=== PATIENT | male | born 1955 | race Caucasian/White ===

== ENCOUNTER 2020-04-14 09:14 | Outpatient (CLI) | payer BC, SELFPAY ==
[2020-04-14 09:29] LABS: Basophils Absolute Auto 0.02 K/mm3 (0.00-0.10); Basophils Percent Auto 0.4 % (0.0-1.0); Eosinophils Absolute Auto 0.16 K/mm3 (0.02-0.50); Eosinophils Percent Auto 2.9 % (1.0-6.0); Hematocrit 40.7 % (40.0-54.0); Hemoglobin 13.7 g/dL (14.0-18.0); Immature Granulocyte Absolute 0.03 K/mm3 (0.00-0.00); Immature Granulocyte Percent A 0.6 % (0.0-0.0); Lymphocytes Absolute Auto 1.27 K/mm3 (1.10-4.50); Lymphocytes Percent Auto 23.3 % (18.0-42.0); Mean Corpuscular HGB Conc 33.7 g/dL (32.0-36.0); Mean Corpuscular Volume 95.1 fL (78.0-102.0); Mean Platelet Volume 9.7 fl (8.7-11.0); Monocytes Absolute Auto 0.57 K/mm3 (0.10-0.90); Monocytes Percent Auto 10.5 % (2.0-11.0); Neutrophils Absolute Auto 3.4 K/mm3 (1.7-7.2); Neutrophils Percent Auto 62.3 % (50.0-70.0); Platelet Count Result 187 K/mm3 (150-420); Red Blood Count 4.28 M/mm3 (4.70-6.10); Red Cell Distribution Width 12.8 % (11.6-14.4); White Blood Count 5.4 K/mm3 (4.8-10.8)
[2020-04-14 09:47] LABS: Add Urine Microscopic? YES; Appearance Urine Clear (Clear); Bilirubin Urine Negative (Negative); Blood Urine Negative (Negative); Color Urine Yellow (Yellow); Glucose Urine UA Negative (Negative); Ketones Urine Negative (Negative); Leukocyte Esterase Ur 1+ (Negative); Nitrate Urine Negative (Negative); Protein Urine Negative (Negative); Specific Grav Ur >= 1.030 (1.010-1.020); pH Urine 5.5 (5.0-8.0)
[2020-04-14 09:52] LABS: Bacteria Urine 1+ /hpf; RBC Urine 0-2 /hpf (0-2); Squamous Epithelial Cell Urine Few /hpf (Few)
[2020-04-14 10:24] LABS: Alanine Aminotransferase 26 U/L (16-63); Albumin Level 4.1 g/dL (3.4-5.0); Alkaline Phosphatase 37 U/L (46-116); Anion Gap 8 mmol/L (8-16); Aspartate Amino Transferase 25 U/L (15-37); Bilirubin,Total 0.5 mg/dL (0.00-1.00); Blood Urea Nitrogen 25 mg/dL (7-18); Calcium 8.6 mg/dL (8.5-10.1); Carbon Dioxide 28 mmol/L (21-32); Chloride 105 mmol/L (98-108); Cholesterol 213 mg/dL (0-200); Estimated Glomerular Filt Rate 57; Glucose 129 mg/dL (70-99); HDL Direct 40 mg/dL (40-60); LDL Cholesterol Calculated 150 mg/dL (<130); Osmolality Calculated 298 mOsm/kg (285-295); Potassium 4.2 mmol/L (3.5-5.1); Sodium 141 mmol/L (136-145); Thyroid Stimulating Hormone 0.34 uIU/mL (0.36-3.74); Total Protein 7.1 g/dL (6.4-8.2); Triglycerides 114 mg/dL (0-150)
[2020-04-14 10:28] LABS: Prostate Specific Antigen < 0.1 ng/mL (< OR = 4.0)
[2020-04-14 15:30] LABS: Hemoglobin A1C 6.3 % (<5.7)
== END 2020-04-14 09:15 | disposition home or self-care (01) ==
LOC: CHSLAB 09:16
PROVIDERS: PCP Internal Medicine; Visit Provider Internal Medicine
DX: E03.9 Hypothyroidism, unspecified (principal); E11.9 Type 2 diabetes mellitus without complications; I10 Essential (primary) hypertension; E78.5 Hyperlipidemia, unspecified; Z12.5 Encounter for screening for malignant neoplasm of prostate
CPT/HCPCS: 36415; 80053; 80061; 81001; 83036; 84153; 84443; 85025; G0103

== ENCOUNTER 2020-06-30 09:12 | Outpatient (CLI) | payer BC, SELFPAY ==
[2020-06-30 09:58] LABS: SARS-CoV-2 Ag Positive (Negative)
== END 2020-06-30 09:13 | disposition home or self-care (01) ==
LOC: CHSLAB 09:14
PROVIDERS: PCP Internal Medicine; Visit Provider Internal Medicine
DX: U07.1 COVID-19 (principal)
CPT/HCPCS: 87426

== ENCOUNTER 2020-12-09 07:53 | Outpatient (CLI) | payer BC, SELFPAY ==
[2020-12-09 08:16] LABS: Basophils Absolute Auto 0.05 K/mm3 (0.00-0.10); Basophils Percent Auto 0.9 % (0.0-1.0); Eosinophils Percent Auto 3.5 % (1.0-6.0); Hematocrit 41.7 % (37.0-46.0); Hemoglobin 13.9 g/dL (12.4-15.3); Immature Granulocyte Absolute 0.02 K/mm3 (0.00-0.00); Immature Granulocyte Percent A 0.4 % (0.0-0.0); Lymphocytes Absolute Auto 1.36 K/mm3 (1.10-4.50); Lymphocytes Percent Auto 23.9 % (18.0-42.0); Mean Corpuscular HGB Conc 33.3 g/dL (32.0-36.0); Mean Corpuscular Volume 92.9 fL (78.0-102.0); Mean Platelet Volume 9.6 fl (8.7-11.0); Monocytes Absolute Auto 0.64 K/mm3 (0.10-0.90); Monocytes Percent Auto 11.2 % (2.0-11.0); Neutrophils Absolute Auto 3.4 K/mm3 (1.7-7.2); Neutrophils Percent Auto 60.1 % (50.0-70.0); Platelet Count Result 172 K/mm3 (150-420); Red Blood Count 4.49 M/mm3 (4.70-6.10); Red Cell Distribution Width 13.2 % (11.6-14.4); White Blood Count 5.7 K/mm3 (4.8-10.8)
[2020-12-09 08:38] LABS: Hemoglobin A1C 6.4 % (<5.7)
[2020-12-09 09:34] LABS: Alanine Aminotransferase 30 U/L (16-63); Alkaline Phosphatase 46 U/L (46-116); Anion Gap 5 mmol/L (8-16); Aspartate Amino Transferase 23 U/L (15-37); Bilirubin,Total 0.5 mg/dL (0.00-1.00); Blood Urea Nitrogen 32 mg/dL (7-18); Calcium 9.1 mg/dL (8.5-10.1); Carbon Dioxide 29 mmol/L (21-32); Chloride 104 mmol/L (98-108); Cholesterol 214 mg/dL (0-200); Estimated Glomerular Filt Rate 55; Glucose 123 mg/dL (70-99); HDL Direct 38 mg/dL (40-60); LDL Cholesterol Calculated 156 mg/dL (<130); Osmolality Calculated 293 mOsm/kg (285-295); Potassium 4.1 mmol/L (3.5-5.1); Sodium 138 mmol/L (136-145); Thyroid Stimulating Hormone 2.56 uIU/mL (0.36-3.74); Total Protein 7.1 g/dL (6.4-8.2); Triglycerides 101 mg/dL (0-150)
== END 2020-12-09 07:54 | disposition home or self-care (01) ==
LOC: CHSLAB 07:57
PROVIDERS: PCP Internal Medicine; Visit Provider Internal Medicine
DX: E03.9 Hypothyroidism, unspecified (principal); E11.9 Type 2 diabetes mellitus without complications; I10 Essential (primary) hypertension; E78.5 Hyperlipidemia, unspecified
CPT/HCPCS: 36415; 80053; 80061; 83036; 84443; 85025

== ENCOUNTER 2021-04-20 11:23 | Outpatient (CLI) | payer BC, SELFPAY ==
[2021-04-20 12:36] LABS: SARS-CoV-2 Ag Negative (Negative)
== END 2021-04-20 11:24 | disposition home or self-care (01) ==
LOC: CHSLAB 11:26
PROVIDERS: PCP Internal Medicine; Visit Provider Internal Medicine
DX: Z20.822 Contact with and (suspected) exposure to COVID-19 (principal)
CPT/HCPCS: 87426; C9803

== ENCOUNTER 2021-04-22 11:13 | Outpatient (CLI) | payer BC, SELFPAY ==
[2021-04-22 11:33] LABS: Add Urine Microscopic? YES; Appearance Urine Sl Cloudy (Clear); Basophils Absolute Auto 0.01 K/mm3 (0.00-0.10); Basophils Percent Auto 0.1 % (0.0-1.0); Bilirubin Urine Negative (Negative); Blood Urine 1+ (Negative); Color Urine Light Yellow (Yellow); Eosinophils Absolute Auto 0.08 K/mm3 (0.02-0.50); Eosinophils Percent Auto 0.8 % (1.0-6.0); Glucose Urine UA 3+ (Negative); Hematocrit 46.4 % (37.0-46.0); Hemoglobin 15.3 g/dL (12.4-15.3); Immature Granulocyte Absolute 0.04 K/mm3 (0.00-0.00); Immature Granulocyte Percent A 0.4 % (0.0-0.0); Ketones Urine 1+ (Negative); Leukocyte Esterase Ur Trace (Negative); Lymphocytes Percent Auto 13.3 % (18.0-42.0); Mean Corpuscular Hemoglobin 30.4 pg (27.0-31.0); Mean Corpuscular Volume 92.2 fL (78.0-102.0); Mean Platelet Volume 9.5 fl (8.7-11.0); Monocytes Absolute Auto 0.47 K/mm3 (0.10-0.90); Monocytes Percent Auto 4.8 % (2.0-11.0); Neutrophils Absolute Auto 7.8 K/mm3 (1.7-7.2); Neutrophils Percent Auto 80.6 % (50.0-70.0); Nitrate Urine Positive (Negative); Platelet Count Result 204 K/mm3 (150-420); Protein Urine Trace (Negative); Red Blood Count 5.03 M/mm3 (4.70-6.10); Red Cell Distribution Width 13.1 % (11.6-14.4); Urobilinogen Urine 0.2 mg/dL (0.2-1.0); White Blood Count 9.7 K/mm3 (4.8-10.8); pH Urine 5.5 (5.0-8.0)
[2021-04-22 12:11] LABS: Bacteria Urine 2+ /hpf; RBC Urine None seen /hpf (0-2); Squamous Epithelial Cell Urine Few /hpf (Few); WBC Urine 21-30 /hpf (0-3)
[2021-04-22 12:16] LABS: Creatinine Urine 136.21 mg/dL (40-278); MALB Creatinine Ratio 27.7 mg/g (0-30); Microalbumin Urine Random 37.8 mg/L
[2021-04-22 12:20] LABS: Hemoglobin A1C 6.3 % (<5.7)
[2021-04-22 12:47] LABS: Alanine Aminotransferase 20 U/L (16-63); Albumin Level 3.7 g/dL (3.4-5.0); Alkaline Phosphatase 33 U/L (46-116); Anion Gap 15 mmol/L (8-16); Aspartate Amino Transferase 18 U/L (15-37); Bilirubin,Total 0.8 mg/dL (0.00-1.00); Blood Urea Nitrogen 20 mg/dL (7-18); Calcium 8.6 mg/dL (8.5-10.1); Carbon Dioxide 25 mmol/L (21-32); Chloride 100 mmol/L (98-108); Estimated Glomerular Filt Rate > 60; Glucose 115 mg/dL (70-99); Osmolality Calculated 293 mOsm/kg (285-295); Sodium 140 mmol/L (136-145); Thyroid Stimulating Hormone 0.02 uIU/mL (0.36-3.74); Total Protein 6.6 g/dL (6.4-8.2)
[2021-04-22 12:52] LABS: CRP 17.8 mg/dL (0.0-0.9)
[2021-04-25 18:59] LABS: SARS-CoV-2 IgG <1.00 Index (<1.00)
== END 2021-04-22 11:14 | disposition home or self-care (01) ==
LOC: CHSLAB 11:16
PROVIDERS: PCP Internal Medicine; Visit Provider Internal Medicine
DX: J02.9 Acute pharyngitis, unspecified (principal); R21 Rash and other nonspecific skin eruption; E11.9 Type 2 diabetes mellitus without complications
CPT/HCPCS: 36415; 80053; 81001; 82043; 83036; 84443; 85025; 86140; 86769

== ENCOUNTER 2021-06-01 11:04 | Outpatient (CLI) | payer BC, SELFPAY ==
--- NOTE | ~2021-06-01 | US_ITS ---
EXAMINATION:US venous doppler LE LT INDICATION:Left leg swelling TECHNIQUE: Multiple grayscale, color flow and Doppler images of the left lower extremity deep venous systems were obtained and reviewed. COMPARISON:05/23/2011 FINDINGS: The common femoral, superficial femoral and popliteal veins demonstrate normal respiratory variation, augmentation and compressibility. Color flow is also seen within the posterior tibial, pe roneal, greater saphenous and profunda veins. IMPRESSION: 1: No lower extremity deep venous thrombosis. Reviewed, dictated and finalized at location B.
[2021-06-01 11:50] LABS: Eosinophils Absolute Auto 0.06 K/mm3 (0.02-0.50); Eosinophils Percent Auto 0.9 % (1.0-6.0); Hematocrit 40.9 % (37.0-46.0); Hemoglobin 13.3 g/dL (12.4-15.3); Immature Granulocyte Absolute 0.02 K/mm3 (0.00-0.00); Immature Granulocyte Percent A 0.3 % (0.0-0.0); Lymphocytes Percent Auto 17.2 % (18.0-42.0); Mean Corpuscular HGB Conc 32.5 g/dL (32.0-36.0); Mean Corpuscular Hemoglobin 30.6 pg (27.0-31.0); Mean Platelet Volume 9.5 fl (8.7-11.0); Monocytes Absolute Auto 0.46 K/mm3 (0.10-0.90); Monocytes Percent Auto 7.2 % (2.0-11.0); Neutrophils Absolute Auto 4.8 K/mm3 (1.7-7.2); Neutrophils Percent Auto 74.4 % (50.0-70.0); Platelet Count Result 223 K/mm3 (150-420); Red Blood Count 4.35 M/mm3 (4.70-6.10); Red Cell Distribution Width 13.2 % (11.6-14.4); White Blood Count 6.4 K/mm3 (4.8-10.8)
[2021-06-01 11:52] LABS: Appearance Urine Clear (Clear); Bilirubin Urine Negative (Negative); Color Urine Yellow (Yellow); Glucose Urine UA Negative (Negative); Ketones Urine Negative (Negative); Leukocyte Esterase Ur 1+ (Negative); Nitrate Urine Positive (Negative); Protein Urine Negative (Negative); Specific Grav Ur 1.025 (1.010-1.020)
[2021-06-01 12:00] LABS: Add Urine Microscopic? YES; Bacteria Urine 1+ /hpf; Blood Urine Trace-Intact (Negative); RBC Urine None seen /hpf (0-2); Squamous Epithelial Cell Urine Few /hpf (Few); WBC Urine 16-20 /hpf (0-3)
[2021-06-01 12:32] LABS: Alanine Aminotransferase 22 U/L (16-63); Albumin Level 3.7 g/dL (3.4-5.0); Alkaline Phosphatase 34 U/L (46-116); Anion Gap 12 mmol/L (8-16); Aspartate Amino Transferase 18 U/L (15-37); Bilirubin,Total 0.9 mg/dL (0.00-1.00); Blood Urea Nitrogen 14 mg/dL (7-18); CRP 9.8 mg/dL (0.0-0.9); Calcium 8.1 mg/dL (8.5-10.1); Carbon Dioxide 28 mmol/L (21-32); Chloride 100 mmol/L (98-108); Estimated Glomerular Filt Rate > 60; Glucose 115 mg/dL (70-99); Osmolality Calculated 291 mOsm/kg (285-295); Sodium 140 mmol/L (136-145); Total Protein 7.7 g/dL (6.4-8.2)
[2021-06-01 12:35] LABS: Prostate Specific Antigen < 0.1 ng/mL (< OR = 4.0)
[2021-06-04 04:36] LABS: Thyroglobulin <0.1 ng/mL (2.8-40.9); Thyroglobulin Antibodies 2 IU/mL (<=1)
[2021-06-04 10:03] LABS: ANCA Screen Negative (Negative)
[2021-06-04 19:29] LABS: Complement Total CH50 >60 U/mL (31-60)
[2021-06-05 06:19] LABS: SARS-CoV-2 IgG <1.00 Index (<1.00)
[2021-06-08 04:30] LABS: Thyroid Peroxidase Antibodies 2 IU/mL (<9)
== END 2021-06-01 11:05 | disposition home or self-care (01) ==
PROVIDERS: PCP Internal Medicine; Visit Provider Internal Medicine
DX: L50.9 Urticaria, unspecified (principal); Z12.5 Encounter for screening for malignant neoplasm of prostate; M79.89 Other specified soft tissue disorders; Z00.00 Encounter for general adult medical examination without abnormal findings; N39.0 Urinary tract infection, site not specified; E03.9 Hypothyroidism, unspecified
CPT/HCPCS: 36415; 80053; 81001; 84153; 84432; 85025; 86021; 86038; 86140; 86162; 86376; 86769; 86800; 87086; 87088; 93971; G0103

== ENCOUNTER 2021-08-26 13:33 | Outpatient (CLI) | payer BC, SELFPAY ==
[2021-08-26 13:56] LABS: Basophils Absolute Auto 0.01 K/mm3 (0.00-0.10); Basophils Percent Auto 0.1 % (0.0-1.0); Eosinophils Absolute Auto 0.24 K/mm3 (0.02-0.50); Eosinophils Percent Auto 3.3 % (1.0-6.0); Hematocrit 41.6 % (37.0-46.0); Hemoglobin 13.5 g/dL (12.4-15.3); Immature Granulocyte Absolute 0.03 K/mm3 (0.00-0.00); Immature Granulocyte Percent A 0.4 % (0.0-0.0); Lymphocytes Absolute Auto 1.74 K/mm3 (1.10-4.50); Mean Corpuscular HGB Conc 32.5 g/dL (32.0-36.0); Mean Corpuscular Hemoglobin 29.9 pg (27.0-31.0); Mean Corpuscular Volume 92.2 fL (78.0-102.0); Mean Platelet Volume 9.3 fl (8.7-11.0); Monocytes Absolute Auto 0.76 K/mm3 (0.10-0.90); Monocytes Percent Auto 10.5 % (2.0-11.0); Neutrophils Absolute Auto 4.5 K/mm3 (1.7-7.2); Neutrophils Percent Auto 61.7 % (50.0-70.0); Platelet Count Result 237 K/mm3 (150-420); Red Blood Count 4.51 M/mm3 (4.70-6.10); Red Cell Distribution Width 14.1 % (11.6-14.4); White Blood Count 7.3 K/mm3 (4.8-10.8)
[2021-08-26 13:57] LABS: Appearance Urine Clear (Clear); Bilirubin Urine Negative (Negative); Color Urine Light Yellow (Yellow); Glucose Urine UA Negative (Negative); Ketones Urine Negative (Negative); Leukocyte Esterase Ur 3+ (Negative); Nitrate Urine Positive (Negative); Protein Urine Negative (Negative); Urobilinogen Urine 0.2 mg/dL (0.2-1.0); pH Urine 6.5 (5.0-8.0)
[2021-08-26 14:14] LABS: Add Urine Microscopic? YES; Blood Urine Trace-Lysed (Negative); RBC Urine 0-2 /hpf (0-2); Squamous Epithelial Cell Urine Rare /hpf (Few); WBC Urine 16-20 /hpf (0-3)
[2021-08-26 14:15] LABS: Bacteria Urine 1+ /hpf
[2021-08-26 14:17] LABS: Hemoglobin A1C 6.4 % (<5.7)
[2021-08-26 14:38] LABS: Alanine Aminotransferase 22 U/L (16-63); Albumin Level 3.9 g/dL (3.4-5.0); Alkaline Phosphatase 40 U/L (46-116); Anion Gap 11 mmol/L (8-16); Aspartate Amino Transferase 42 U/L (15-37); Bilirubin,Total 0.5 mg/dL (0.00-1.00); Blood Urea Nitrogen 15 mg/dL (7-18); CRP 0.8 mg/dL (0.0-0.9); Calcium 8.8 mg/dL (8.5-10.1); Carbon Dioxide 29 mmol/L (21-32); Chloride 100 mmol/L (98-108); Cholesterol 235 mg/dL (0-200); Estimated Glomerular Filt Rate > 60; Glucose 112 mg/dL (70-99); HDL Direct 51 mg/dL (40-60); LDL Cholesterol Calculated 166 mg/dL (<130); Osmolality Calculated 291 mOsm/kg (285-295); Sodium 140 mmol/L (136-145); Thyroid Stimulating Hormone 3.12 uIU/mL (0.36-3.74); Total Protein 7.5 g/dL (6.4-8.2); Triglycerides 91 mg/dL (0-150)
== END 2021-08-26 13:34 | disposition home or self-care (01) ==
LOC: CHSLAB 13:42
PROVIDERS: PCP Internal Medicine; Visit Provider Internal Medicine
DX: E03.9 Hypothyroidism, unspecified (principal); E11.9 Type 2 diabetes mellitus without complications; E78.5 Hyperlipidemia, unspecified; R82.81 Pyuria; I10 Essential (primary) hypertension
CPT/HCPCS: 36415; 80053; 80061; 81001; 83036; 84443; 85025; 86140

== ENCOUNTER 2021-12-02 10:28 | Outpatient (CLI) | payer MEDICARE, SELFPAY ==
--- NOTE | ~2021-12-02 | US_ITS ---
EXAMINATION: US scrotum doppler EXAM DATE: 12/02/2021 10:58 INDICATION: Right epididymitis, abscess. TECHNIQUE: Multiple grayscale and Doppler images of the testicles and scrotum were obtained bilateral ly. Comparison is made to prior examination from 02/13/2018. FINDINGS: Right testicle measures 4.9 x 2.4 x 2.1 cm and is morphologically normal. Low resistance Doppler hao w confirmed. The epididymis is unremarkable. There is large right loculated fluid collection or hydro luis a, finding was present on previous examination however on prior study there are multiple septation s. Today this appears unilocular. No varicocele. Left testicle measures 2.7 x 2.5 x 1.7 cm and is morphologically normal. Doppler flow was confirmed b ut had high resistance waveform, similar to prior study 2017. The epididymis is unremarkable. There is no hydrocele or varicocele. IMPRESSION: 1. Large unilocular right scrotal fluid collection, most likely hydrocele but abscess was reported in history. Please clinically correlate. 2. Chronic high resistance left testicular Doppler waveform. Reviewed, dictated and finalized at location A. IMPRESSION: 1. Large unilocular right scrotal fluid collection, most likely hydrocele but a bscess was reported in history. Please clinically correlate. 2. Chronic high resistance left testicular Doppler waveform.
== END 2021-12-02 10:29 | disposition home or self-care (01) ==
LOC: CHSIMG 10:31
PROVIDERS: PCP Internal Medicine; Visit Provider Internal Medicine
DX: N45.3 Epididymo-orchitis (principal)
CPT/HCPCS: 76870; 93976

== ENCOUNTER 2022-03-11 09:12 | Outpatient (CLI) | payer MEDICARE, SELFPAY ==
[2022-03-11 09:23] LABS: Basophils Absolute Auto 0.01 K/mm3 (0.00-0.10); Basophils Percent Auto 0.1 % (0.0-1.0); Eosinophils Absolute Auto 0.24 K/mm3 (0.02-0.50); Eosinophils Percent Auto 3.5 % (1.0-6.0); Hematocrit 41.8 % (37.0-46.0); Hemoglobin 14.1 g/dL (12.4-15.3); Immature Granulocyte Absolute 0.02 K/mm3 (0.00-0.00); Immature Granulocyte Percent A 0.3 % (0.0-0.0); Lymphocytes Absolute Auto 1.48 K/mm3 (1.10-4.50); Lymphocytes Percent Auto 21.9 % (18.0-42.0); Mean Corpuscular HGB Conc 33.7 g/dL (32.0-36.0); Mean Corpuscular Hemoglobin 31.3 pg (27.0-31.0); Mean Corpuscular Volume 92.9 fL (78.0-102.0); Mean Platelet Volume 9.2 fl (8.7-11.0); Monocytes Percent Auto 10.3 % (2.0-11.0); Neutrophils Absolute Auto 4.3 K/mm3 (1.7-7.2); Neutrophils Percent Auto 63.9 % (50.0-70.0); Platelet Count Result 202 K/mm3 (150-420); Red Cell Distribution Width 14.1 % (11.6-14.4); White Blood Count 6.8 K/mm3 (4.8-10.8)
[2022-03-11 09:38] LABS: Add Urine Microscopic? YES; Appearance Urine Clear (Clear); Bilirubin Urine Negative (Negative); Blood Urine Negative (Negative); Color Urine Light Yellow (Yellow); Glucose Urine UA Negative (Negative); Ketones Urine Negative (Negative); Leukocyte Esterase Ur 1+ (Negative); Nitrate Urine Negative (Negative); Protein Urine Negative (Negative); Specific Grav Ur 1.015 (1.010-1.020); Urobilinogen Urine 0.2 mg/dL (0.2-1.0); pH Urine 6.5 (5.0-8.0)
[2022-03-11 09:39] LABS: Hemoglobin A1C 6.2 % (<5.7)
[2022-03-11 09:47] LABS: Bacteria Urine Trace /hpf; RBC Urine None seen /hpf (0-2); Renal Epithelial Cells Urine Rare /hpf; Squamous Epithelial Cell Urine Few /hpf (Few)
[2022-03-11 10:11] LABS: Alanine Aminotransferase 22 U/L (16-63); Albumin Level 3.9 g/dL (3.4-5.0); Alkaline Phosphatase 35 U/L (46-116); Anion Gap 8 mmol/L (8-16); Aspartate Amino Transferase 21 U/L (15-37); Bilirubin,Total 0.6 mg/dL (0.00-1.00); Blood Urea Nitrogen 14 mg/dL (7-18); CRP < 0.5 mg/dL (0.0-0.9); Carbon Dioxide 29 mmol/L (21-32); Chloride 104 mmol/L (98-108); Cholesterol 213 mg/dL (0-200); Estimated Glomerular Filt Rate > 60; Glucose 125 mg/dL (70-99); HDL Direct 47 mg/dL (40-60); LDL Cholesterol Calculated 133 mg/dL (<130); Osmolality Calculated 293 mOsm/kg (285-295); Sodium 141 mmol/L (136-145); Total Protein 7.4 g/dL (6.4-8.2); Triglycerides 163 mg/dL (0-150)
== END 2022-03-11 09:13 | disposition home or self-care (01) ==
LOC: CHSLAB 09:14
PROVIDERS: PCP Internal Medicine; Visit Provider Internal Medicine
DX: E78.5 Hyperlipidemia, unspecified (principal); E11.9 Type 2 diabetes mellitus without complications; I10 Essential (primary) hypertension; E03.9 Hypothyroidism, unspecified
CPT/HCPCS: 36415; 80053; 80061; 81001; 83036; 84443; 85025; 86140

== ENCOUNTER 2022-06-28 08:31 | Outpatient (CLI) | payer MEDICARE, SELFPAY ==
[2022-06-28 09:19] LABS: Anion Gap 7 mmol/L (8-16); Blood Urea Nitrogen 19 mg/dL (7-18); Calcium 8.9 mg/dL (8.5-10.1); Carbon Dioxide 30 mmol/L (21-32); Chloride 104 mmol/L (98-108); Estimated Glomerular Filt Rate > 60; Glucose 136 mg/dL (70-99); Osmolality Calculated 296 mOsm/kg (285-295); Potassium 4.4 mmol/L (3.5-5.1); Sodium 141 mmol/L (136-145)
== END 2022-06-28 08:32 | disposition home or self-care (01) ==
LOC: CHSLAB 08:35
PROVIDERS: PCP Internal Medicine; Visit Provider Internal Medicine Cardiovascular Disease
DX: E11.59 Type 2 diabetes mellitus with other circulatory complications (principal); I15.2 Hypertension secondary to endocrine disorders
CPT/HCPCS: 36415; 80048

== ENCOUNTER 2022-10-14 08:55 | Outpatient (CLI) | payer MEDICARE, SELFPAY ==
[2022-10-14 09:13] LABS: Basophils Absolute Auto 0.01 K/mm3 (0.00-0.10); Basophils Percent Auto 0.2 % (0.0-1.0); Eosinophils Absolute Auto 0.19 K/mm3 (0.02-0.50); Hemoglobin 14.1 g/dL (12.4-15.3); Immature Granulocyte Absolute 0.02 K/mm3 (0.00-0.00); Immature Granulocyte Percent A 0.3 % (0.0-0.0); Lymphocytes Absolute Auto 1.45 K/mm3 (1.10-4.50); Lymphocytes Percent Auto 23.3 % (18.0-42.0); Mean Corpuscular HGB Conc 32.8 g/dL (32.0-36.0); Mean Corpuscular Hemoglobin 30.9 pg (27.0-31.0); Mean Corpuscular Volume 94.1 fL (78.0-102.0); Mean Platelet Volume 9.6 fl (8.7-11.0); Monocytes Absolute Auto 0.76 K/mm3 (0.10-0.90); Monocytes Percent Auto 12.2 % (2.0-11.0); Neutrophils Absolute Auto 3.8 K/mm3 (1.7-7.2); Platelet Count Result 195 K/mm3 (150-420); Red Blood Count 4.57 M/mm3 (4.70-6.10); Red Cell Distribution Width 13.8 % (11.6-14.4); White Blood Count 6.2 K/mm3 (4.8-10.8)
[2022-10-14 10:03] LABS: Hemoglobin A1C 6.6 % (<5.7)
[2022-10-14 10:36] LABS: Alanine Aminotransferase 27 U/L (16-63); Albumin Level 3.8 g/dL (3.4-5.0); Alkaline Phosphatase 46 U/L (46-116); Anion Gap 8 mmol/L (8-16); Aspartate Amino Transferase 23 U/L (15-37); Bilirubin,Total 0.4 mg/dL (0.00-1.00); Blood Urea Nitrogen 18 mg/dL (7-18); Calcium 8.9 mg/dL (8.5-10.1); Carbon Dioxide 29 mmol/L (21-32); Chloride 106 mmol/L (98-108); Cholesterol 214 mg/dL (0-200); Estimated Glomerular Filt Rate > 60; Glucose 150 mg/dL (70-99); HDL Direct 44 mg/dL (40-60); LDL Cholesterol Calculated 149 mg/dL (<130); Osmolality Calculated 300 mOsm/kg (285-295); Potassium 4.5 mmol/L (3.5-5.1); Sodium 143 mmol/L (136-145); Thyroid Stimulating Hormone 0.77 uIU/mL (0.36-3.74); Total Protein 6.9 g/dL (6.4-8.2); Triglycerides 107 mg/dL (0-150)
== END 2022-10-14 08:56 | disposition home or self-care (01) ==
LOC: CHSLAB 08:57
PROVIDERS: PCP Internal Medicine; Visit Provider Internal Medicine
DX: E03.9 Hypothyroidism, unspecified (principal); E11.9 Type 2 diabetes mellitus without complications; I10 Essential (primary) hypertension
CPT/HCPCS: 36415; 80053; 80061; 83036; 84443; 85025

== ENCOUNTER 2023-05-29 09:17 | Outpatient (CLI) | payer MEDICARE, SELFPAY ==
[2023-05-29 09:45] LABS: Hemoglobin A1C 6.6 % (<5.7)
[2023-05-29 10:16] LABS: Alanine Aminotransferase 28 U/L (16-63); Albumin Level 3.7 g/dL (3.4-5.0); Alkaline Phosphatase 45 U/L (46-116); Anion Gap 9 mmol/L (8-16); Aspartate Amino Transferase 20 U/L (15-37); Bilirubin,Total 0.6 mg/dL (0.00-1.00); Blood Urea Nitrogen 17 mg/dL (7-18); Carbon Dioxide 28 mmol/L (21-32); Chloride 105 mmol/L (98-108); Estimated Glomerular Filt Rate > 60; Glucose 132 mg/dL (70-99); Osmolality Calculated 297 mOsm/kg (285-295); Potassium 4.3 mmol/L (3.5-5.1); Sodium 142 mmol/L (136-145); Total Protein 6.8 g/dL (6.4-8.2)
== END 2023-05-29 09:18 | disposition home or self-care (01) ==
LOC: CHSLAB 09:20
PROVIDERS: PCP Internal Medicine; Visit Provider Internal Medicine
DX: E11.9 Type 2 diabetes mellitus without complications (principal)
CPT/HCPCS: 36415; 80053; 83036

== ENCOUNTER 2023-06-14 11:05 | Outpatient (CLI) | payer MEDICARE, SELFPAY ==
[2023-06-14 11:47] LABS: Anion Gap 7 mmol/L (8-16); Blood Urea Nitrogen 15 mg/dL (7-18); Calcium 9.1 mg/dL (8.5-10.1); Carbon Dioxide 30 mmol/L (21-32); Chloride 103 mmol/L (98-108); Estimated Glomerular Filt Rate > 60; Glucose 117 mg/dL (70-99); Osmolality Calculated 291 mOsm/kg (285-295); Potassium 4.3 mmol/L (3.5-5.1); Sodium 140 mmol/L (136-145)
== END 2023-06-14 11:06 | disposition home or self-care (01) ==
LOC: CHSLAB 11:08
PROVIDERS: PCP Internal Medicine; Visit Provider Internal Medicine Cardiovascular Disease
DX: E11.59 Type 2 diabetes mellitus with other circulatory complications (principal); I15.2 Hypertension secondary to endocrine disorders
CPT/HCPCS: 36415; 80048

== ENCOUNTER 2023-09-14 09:32 | Outpatient (CLI) | payer MEDICARE, SELFPAY ==
[2023-09-14 09:45] LABS: Eosinophils Absolute Auto 0.15 K/mm3 (0.02-0.50); Eosinophils Percent Auto 2.3 % (1.0-6.0); Immature Granulocyte Absolute 0.01 K/mm3 (0.00-0.00); Immature Granulocyte Percent A 0.2 % (0.0-0.0); Lymphocytes Percent Auto 20.3 % (18.0-42.0); Mean Corpuscular HGB Conc 33.3 g/dL (32.0-36.0); Mean Corpuscular Hemoglobin 30.6 pg (27.0-31.0); Mean Corpuscular Volume 91.9 fL (78.0-102.0); Mean Platelet Volume 9.5 fl (8.7-11.0); Monocytes Absolute Auto 0.67 K/mm3 (0.10-0.90); Monocytes Percent Auto 10.5 % (2.0-11.0); Neutrophils Absolute Auto 4.3 K/mm3 (1.7-7.2); Neutrophils Percent Auto 66.7 % (50.0-70.0); Platelet Count Result 195 K/mm3 (150-420); Red Blood Count 4.57 M/mm3 (4.70-6.10); White Blood Count 6.4 K/mm3 (4.8-10.8)
[2023-09-14 10:04] LABS: Hemoglobin A1C 5.7 % (<5.7)
[2023-09-14 10:20] LABS: Alanine Aminotransferase 23 U/L (16-63); Albumin Level 3.6 g/dL (3.4-5.0); Alkaline Phosphatase 35 U/L (46-116); Anion Gap 8 mmol/L (8-16); Aspartate Amino Transferase 21 U/L (15-37); Bilirubin,Total 0.5 mg/dL (0.00-1.00); Blood Urea Nitrogen 14 mg/dL (7-18); Calcium 8.7 mg/dL (8.5-10.1); Carbon Dioxide 29 mmol/L (21-32); Chloride 105 mmol/L (98-108); Cholesterol 193 mg/dL (0-200); Estimated Glomerular Filt Rate > 60; Glucose 106 mg/dL (70-99); HDL Direct 44 mg/dL (40-60); LDL Cholesterol Calculated 132 mg/dL (<130); Osmolality Calculated 294 mOsm/kg (285-295); Potassium 4.3 mmol/L (3.5-5.1); Sodium 142 mmol/L (136-145); Thyroid Stimulating Hormone 0.27 uIU/mL (0.36-3.74); Total Protein 6.7 g/dL (6.4-8.2); Triglycerides 86 mg/dL (0-150)
== END 2023-09-14 09:33 | disposition home or self-care (01) ==
LOC: CHSLAB 09:34
PROVIDERS: PCP Internal Medicine; Visit Provider Internal Medicine
DX: E03.9 Hypothyroidism, unspecified (principal); E11.9 Type 2 diabetes mellitus without complications; I10 Essential (primary) hypertension
CPT/HCPCS: 36415; 80053; 80061; 83036; 84443; 85025

== ENCOUNTER 2023-10-24 00:16 | Day surgery (SDC) | payer MEDICARE, SELFPAY ==
[2023-10-17 13:16] VITALS: BMI 41.1
--- NOTE | 2023-10-20 10:53 | SUR.PREOP ---
Patient called regarding upcoming procedure. Reviewed preop instructions, appointment times, and procedure prep.
[2023-10-24 14:07] VITALS: BP 148/75; PULSE 74; RESP 18; TEMP 36.2; O2SAT 98; BMI 40.8
[2023-10-24] MEDS: LACTATED RINGERS 1,000 ML 150 ML IV CONT (14:10)
--- NOTE | 2023-10-24 14:24 | P.PNAN_ITS ---
Anes - Initial Pre Proc Eval Procedure: Operation Date: 10/24/23 14:30 Proposed Procedures p Colonoscopy - Kristopher Gutierrez MD Date/Time: 10/24/23 14:24 Surgeon: Kristopher Gutierrez MD Pre Op Diagnosis: change in bowel habit Patient Data Age: 68 Gender: M Height: 1.8 m Weight: 133 kg Last Vital Signs Temp 97.2 F L 10/24/23 14:07 Pulse 74 10/24/23 14:07 Resp 18 10/24/23 14:07 BP 148/75 H 10/24/23 14:07 Pulse Ox 98 10/24/23 14:07 O2 Del Method Room Air 10/24/23 14:07 Allergies Allergy/AdvReac Type Severity Reaction Status Date / Time No Known Allergies Allergy Verified 10/24/23 14:05 Home Medications Medication Instructions Recorded Confirmed Type levothyroxine 200 mcg tablet 200 mcg PO HS 10/17/23 10/24/23 History losartan 100 mg tablet 100 mg PO HS 10/17/23 10/24/23 History metformin 500 mg tablet,extended 500 mg PO HS 10/17/23 10/24/23 History release 24 hr metoprolol succinate 25 mg 25 mg PO HS 10/17/23 10/24/23 History tablet,extended release 24 hr semaglutide 1 mg/dose (4 mg/3 mL) 1 mg subcut WEEKLY 10/17/23 10/24/23 History subcutaneous pen injector (Ozempic) Patient hx anesthesia problems: none Family hx anesthesia problems: none Results Review: All pre-operative results and documents have been reviewed as part of the pre- operative evaluation. [facility] Social History Social History Smoking packs per day: 2 Smoking cigarettes per day: 40.0 Years smoked: 10 Smoking pack-years: 20.00 Smoking status: Former smoker Tobacco type: cigarettes Alcohol intake: current Drinks per week: 2 Alcohol use details: BEERS Substance use: never Substance use type: does not use Living arrangements: with family Spiritual care concerns: No Anes - Eval Final PreProcedure Day of Procedure 10/24/23 14:24 Patient weight: morbidly obese Heart: regular rate and rhythm Lungs: clear to auscultation Airway: Mallampati scale class III Neurological: alert and oriented Last oral intake: >/= 8 hours ASA classification: III Emergent: no Anesthetic plan: proceed Anesthesia type and monitoring: general GIVS and standard monitoring Results Review: All pre-operative results and documents have been reviewed as part of the pre- operative evaluation. Informed Consent: The patient's anesthetic plan and its attendant risks and benefits were discussed with the patient/family/POA. Questions were solicited and answers provided to the satisfaction of the patient/family/POA.
[2023-10-24 14:27] LABS: Glucose Point of Care 96 mg/dl (65-105)
--- NOTE | 2023-10-24 14:30 | PM.HPGS ---
History of Present Illness History of Present Illness Consent: Risks, benefits, and alternatives have been discussed and questions answered. Patient agrees to proceed with procedure. Chief complaint: colon screen Narrative: Ang Hastings is a 68 year old male here for screening colonoscopy, last one years ago. Review of Systems Review of Systems: All systems reviewed & are unremarkable except as noted in HPI and below PMFSH Past Medical History Medical History (Updated 10/24/23 @ 14:31 by Kristopher Gutierrez MD) Colon cancer screening Social History Social History Smoking packs per day: 2 Smoking cigarettes per day: 40.0 Years smoked: 10 Smoking pack-years: 20.00 Smoking status: Former smoker Tobacco type: cigarettes Alcohol intake: current Drinks per week: 2 Alcohol use details: BEERS Substance use: never Substance use type: does not use Living arrangements: with family Spiritual care concerns: No Meds Home Medications and Allergies Home Medications Medication Instructions Recorded Confirmed Type levothyroxine 200 mcg tablet 200 mcg PO HS 10/17/23 10/24/23 History losartan 100 mg tablet 100 mg PO HS 10/17/23 10/24/23 History metformin 500 mg tablet,extended 500 mg PO HS 10/17/23 10/24/23 History release 24 hr metoprolol succinate 25 mg 25 mg PO HS 10/17/23 10/24/23 History tablet,extended release 24 hr semaglutide 1 mg/dose (4 mg/3 mL) 1 mg subcut WEEKLY 10/17/23 10/24/23 History subcutaneous pen injector (Ozempic) Allergies Allergy/AdvReac Type Severity Reaction Status Date / Time No Known Allergies Allergy Verified 10/24/23 14:05 Vital Signs Vital Signs - 24 hr 10/24/23 14:07 Temperature 97.2 F L Pulse Rate 74 Respiratory Rate 18 Blood Pressure 148/75 H Pulse Oximetry 98 Oxygen Delivery Room Air Exam Const: General: comfortable and no acute distress HENMT: Face/Nose/Sinus: Normal nares present Eyes: General: appearance normal, both eyes and all related structures Neck: Neck: no JVD Resp: Auscultation: clear to auscultation bilaterally Cardio: Rate: regular rate Rhythm: regular rhythm GI: Inspection: non-distended GI Palp: Yes Soft to palpation Skin: General skin exam: normal color Neuro: General: gait normal Speech: normal speech Extrem: General: normal to inspection Psych: Mental Status: mental status grossly normal Assessment and Plan Assessment and plan (1) Colon cancer screening: Code(s): Z12.11 - Encounter for screening for malignant neoplasm of colon Status: Acute Assessment and Plan: colonoscopy
[2023-10-24 14:50] VITALS: BP 127/78; PULSE 73; RESP 22; O2SAT 100
[2023-10-24 15:00] VITALS: BP 142/89; PULSE 74; RESP 17; O2SAT 100
[2023-10-24 15:10] VITALS: BP 138/78; PULSE 70; RESP 18; O2SAT 100
--- NOTE | 2023-10-24 15:22 | SUR.PHASEII ---
Pt's shuttle van driver called states he is at a Dr. Appt. currently. Pt notified of discharge delay. Pt currently in recovery awaiting shuttle van driver.
--- NOTE | 2023-10-24 16:26 | SUR.PHASEII ---
1422 Pt route sales driver called and states he will be here in 15-20 min. Pt updated.
== END 2023-10-24 16:38 | disposition home or self-care (01) ==
PROVIDERS: PCP Internal Medicine; Visit Provider Internal Medicine Gastroenterology
PROC: 0DJD8ZZ Inspection of Lower Intestinal Tract, Via Natural or Artificial Opening Endoscopic (ICD-10-PCS; CPT 45378; principal; 2023-10-24 14:30)
DX: Z12.11 Encounter for screening for malignant neoplasm of colon (principal); D12.2 Benign neoplasm of ascending colon; K64.8 Other hemorrhoids; E66.01 Morbid (severe) obesity due to excess calories; Z68.41 Body mass index [BMI] 40.0-44.9, adult; Z79.84 Long term (current) use of oral hypoglycemic drugs; Z79.85 Long-term (current) use of injectable non-insulin antidiabetic drugs; Z87.891 Personal history of nicotine dependence
CPT/HCPCS: 45385; 82948; 88305; J2704; J7120

== ENCOUNTER 2024-01-03 08:06 | Outpatient (CLI) | payer MEDICARE, SELFPAY ==
[2024-01-03 08:54] LABS: Basophils Absolute Auto 0.01 K/mm3 (0.00-0.10); Basophils Percent Auto 0.2 % (0.0-1.0); Eosinophils Absolute Auto 0.11 K/mm3 (0.02-0.50); Eosinophils Percent Auto 1.7 % (1.0-6.0); Hematocrit 39.4 % (37.0-46.0); Hemoglobin 12.8 g/dL (12.4-15.3); Immature Granulocyte Absolute 0.03 K/mm3 (0.00-0.00); Immature Granulocyte Percent A 0.5 % (0.0-0.0); Lymphocytes Absolute Auto 1.27 K/mm3 (1.10-4.50); Lymphocytes Percent Auto 19.4 % (18.0-42.0); Mean Corpuscular HGB Conc 32.5 g/dL (32-36); Mean Corpuscular Hemoglobin 30.5 pg (27.0-31.0); Mean Corpuscular Volume 93.8 fL (78.0-102.0); Monocytes Percent Auto 10.7 % (2.0-11.0); Neutrophils Absolute Auto 4.43 K/mm3 (1.70-7.20); Neutrophils Percent Auto 67.5 % (50.0-70.0); Platelet Count Result 262 K/mm3 (150-420); Red Cell Distribution Width 14.3 % (11.6-14.4); White Blood Count 6.6 K/mm3 (4.8-10.8)
[2024-01-03 09:04] LABS: Hemoglobin A1C 5.4 % (<5.7)
[2024-01-03 09:57] LABS: Alanine Aminotransferase 27 U/L (16-63); Albumin Level 3.7 g/dL (3.4-5.0); Alkaline Phosphatase 37 U/L (46-116); Anion Gap 9 mmol/L (4-12); Aspartate Amino Transferase 22 U/L (15-37); Bilirubin,Total 0.6 mg/dL (0.00-1.00); Blood Urea Nitrogen 17 mg/dL (7-18); Carbon Dioxide 28 mmol/L (21-32); Chloride 105 mmol/L (98-108); Estimated Glomerular Filt Rate > 60; Glucose 98 mg/dL (70-99); Osmolality Calculated 295 mOsm/kg (285-295); Potassium 4.2 mmol/L (3.5-5.1); Sodium 142 mmol/L (136-145); Thyroid Stimulating Hormone 0.03 uIU/mL (0.36-3.74); Total Protein 6.9 g/dL (6.4-8.2)
== END 2024-01-03 08:07 | disposition home or self-care (01) ==
LOC: CHSLAB 08:09
PROVIDERS: PCP Internal Medicine; Visit Provider Internal Medicine
DX: E11.9 Type 2 diabetes mellitus without complications (principal); E03.9 Hypothyroidism, unspecified
CPT/HCPCS: 36415; 80053; 83036; 84443; 85025

== ENCOUNTER 2024-05-01 08:59 | Outpatient (CLI) | payer MEDICARE, SELFPAY ==
[2024-05-01 09:20] LABS: Basophils Absolute Auto 0.01 K/mm3 (0.00-0.10); Basophils Percent Auto 0.1 % (0.0-1.0); Eosinophils Absolute Auto 0.17 K/mm3 (0.02-0.50); Eosinophils Percent Auto 2.4 % (1.0-6.0); Hematocrit 39.4 % (37.0-46.0); Hemoglobin 13.4 g/dL (12.4-15.3); Immature Granulocyte Absolute 0.02 K/mm3 (0.00-0.00); Immature Granulocyte Percent A 0.3 % (0.0-0.0); Lymphocytes Absolute Auto 1.35 K/mm3 (1.10-4.50); Lymphocytes Percent Auto 19.5 % (18.0-42.0); Mean Platelet Volume 9.1 fl (8.7-11.0); Monocytes Absolute Auto 0.77 K/mm3 (0.10-0.90); Monocytes Percent Auto 11.1 % (2.0-11.0); Neutrophils Absolute Auto 4.62 K/mm3 (1.70-7.20); Neutrophils Percent Auto 66.6 % (50.0-70.0); Platelet Count Result 184 K/mm3 (150-420); Red Blood Count 4.19 M/mm3 (4.70-6.10); Red Cell Distribution Width 13.7 % (11.6-14.4); White Blood Count 6.9 K/mm3 (4.8-10.8)
[2024-05-01 09:34] LABS: Hemoglobin A1C 5.2 % (<5.7)
[2024-05-01 10:12] LABS: Alanine Aminotransferase 15 U/L (16-63); Albumin Level 3.7 g/dL (3.4-5.0); Alkaline Phosphatase 51 U/L (46-116); Anion Gap 8 mmol/L (4-12); Aspartate Amino Transferase 27 U/L (15-37); Bilirubin,Total 0.5 mg/dL (0.00-1.00); Blood Urea Nitrogen 21 mg/dL (7-18); Calcium 8.6 mg/dL (8.5-10.1); Carbon Dioxide 30 mmol/L (21-32); Chloride 105 mmol/L (98-108); Estimated Glomerular Filt Rate > 60; Glucose 102 mg/dL (70-99); Osmolality Calculated 299 mOsm/kg (285-295); Potassium 4.1 mmol/L (3.5-5.1); Sodium 143 mmol/L (136-145); Thyroid Stimulating Hormone 0.12 uIU/mL (0.36-3.74)
== END 2024-05-01 09:00 | disposition home or self-care (01) ==
LOC: CHSLAB 09:02
PROVIDERS: PCP Internal Medicine; Visit Provider Internal Medicine
DX: I10 Essential (primary) hypertension (principal); E11.9 Type 2 diabetes mellitus without complications
CPT/HCPCS: 36415; 80053; 83036; 84443; 85025

== ENCOUNTER 2024-07-16 15:42 | Outpatient (CLI) | payer MEDICARE, SELFPAY ==
--- NOTE | ~2024-07-16 | CT_ITS ---
EXAMINATION: CT brain wo con DATE: 07/16/2024 16:15 INDICATION: Headache. Dizziness. TECHNIQUE: Computed tomography (CT) of the head was performed without intravenous contrast. The mA wa s adjusted according to patient size. Iterative reconstruction technique was employed. The dose-lengt h product was 756.67 mGy-cm. COMPARISON: None FINDINGS: There is no intracranial hemorrhage, acute infarction, or abnormal intracranial mass lesion . The ventricles are normal in size. There is mild mucosal thickening in the paranasal sinuses. The o rbits are normal. There are bilateral otomastoid effusions. IMPRESSION: 1. Normal brain. Reviewed, dictated and finalized at location A. LY LIFE EDUCATOR IMPRESSION: 1. Normal brain.
[2024-07-16 16:03] LABS: Basophils Absolute Auto 0.01 K/mm3 (0.00-0.10); Basophils Percent Auto 0.2 % (0.0-1.0); Eosinophils Absolute Auto 0.16 K/mm3 (0.02-0.50); Eosinophils Percent Auto 2.6 % (1.0-6.0); Hematocrit 40.3 % (37.0-46.0); Hemoglobin 13.7 g/dL (12.4-15.3); Immature Granulocyte Absolute 0.01 K/mm3 (0.00-0.00); Immature Granulocyte Percent A 0.2 % (0.0-0.0); Lymphocytes Absolute Auto 1.71 K/mm3 (1.10-4.50); Lymphocytes Percent Auto 28.3 % (18.0-42.0); Mean Corpuscular Hemoglobin 31.2 pg (27.0-31.0); Mean Corpuscular Volume 91.8 fL (78.0-102.0); Mean Platelet Volume 9.1 fl (8.7-11.0); Monocytes Absolute Auto 0.74 K/mm3 (0.10-0.90); Monocytes Percent Auto 12.3 % (2.0-11.0); Neutrophils Absolute Auto 3.41 K/mm3 (1.70-7.20); Neutrophils Percent Auto 56.4 % (50.0-70.0); Platelet Count Result 201 K/mm3 (150-420); Red Blood Count 4.39 M/mm3 (4.70-6.10); Red Cell Distribution Width 13.1 % (11.6-14.4)
[2024-07-16 16:21] LABS: Add Urine Microscopic? NO; Appearance Urine Clear (Clear); Bilirubin Urine Negative (Negative); Blood Urine Negative (Negative); Color Urine Light Yellow (Yellow); Glucose Urine UA Negative (Negative); Ketones Urine Negative (Negative); Leukocyte Esterase Ur Negative LEU/UL (Negative); Nitrate Urine Negative (Negative); Protein Urine Negative (Negative); Urobilinogen Urine 0.2 mg/dL (0.2-1.0)
[2024-07-16 16:30] LABS: Alanine Aminotransferase 25 U/L (16-63); Albumin Level 3.7 g/dL (3.4-5.0); Alkaline Phosphatase 43 U/L (46-116); Anion Gap 7 mmol/L (4-12); Aspartate Amino Transferase 19 U/L (15-37); Bilirubin,Total 0.4 mg/dL (0.00-1.00); Blood Urea Nitrogen 12 mg/dL (7-18); Calcium 8.9 mg/dL (8.5-10.1); Carbon Dioxide 30 mmol/L (21-32); Chloride 103 mmol/L (98-108); Estimated Glomerular Filt Rate > 60; Free T3 1.67 pg/mL (2.18-3.98); Free T4 Free Thyroxine 1.02 ng/dL (0.76-1.46); Glucose 87 mg/dL (70-99); Osmolality Calculated 288 mOsm/kg (285-295); Potassium 3.6 mmol/L (3.5-5.1); Sodium 140 mmol/L (136-145); Thyroid Stimulating Hormone 2.64 uIU/mL (0.36-3.74); Total Protein 7.2 g/dL (6.4-8.2)
[2024-07-16 17:20] LABS: Erythrocyte Sedimentation Rate 32 mm/hr (0-20)
== END 2024-07-16 15:43 | disposition home or self-care (01) ==
PROVIDERS: PCP Internal Medicine; Visit Provider Internal Medicine
DX: R51.9 Headache, unspecified (principal); R42 Dizziness and giddiness; E11.9 Type 2 diabetes mellitus without complications; I10 Essential (primary) hypertension
CPT/HCPCS: 36415; 70450; 80053; 81003; 84439; 84443; 84481; 85025; 85652

== ENCOUNTER 2024-07-17 13:31 | Outpatient (CLI) | payer MEDICARE, SELFPAY ==
--- NOTE | ~2024-07-17 | US_ITS ---
EXAMINATION: US carotid duplex BI DATE: 07/17/2024 14:31 INDICATION: Carotid stenosis. Dizziness. Headache. TECHNIQUE: Grayscale, color Doppler, and pulsed Doppler images of the cervical carotid arteries were obtained. The degree of vessel stenosis is placed in one of the following categories: normal, <50%, 5 0-69%, >=70% but less than near-occlusion, near-occlusion, or total occlusion. Note that percent sten osis relative to normal distal artery lumen diameter is indirectly measured from velocity measurement s as described by Yakov, et al. Radiology 2003; 229:340-346. Notes: Normal: Peak systolic velocity <125 centimeters/sec and no plaque <50%. Peak systolic velocity <125 ( EDV <40; ICA/CCA PSV ratio <2.0; used these factors only a tandem lesions or low cardiac output or co ntralateral disease) 50-69 %: PSV 125-230 (EDV 40-100; ratio 2-4) >= 70% but less than near occlusion: PSV greater than 230 (EDV > 100; ratio> 4.0) Near Occlusion: PSV that is variable; markedly narrowed lumen Occlusion: Absent flow on color/spectral Doppler and no lumen on dolan scale. COMPARISON: None. FINDINGS: RIGHT: The right common carotid artery (CCA) peak systolic velocity (PSV) is 72 cm/s. The right internal car otid artery (ICA) PSV is 108 cm/s. The right ICA end-diastolic velocity (EDV) is 29 cm/s. The right I CA/CCA PSV ratio is 1.5. The external carotid artery (ECA) PSV is 88 cm/s. There is antegrade flow in the right vertebral artery. LEFT: The left CCA PSV is 79 cm/s. The left ICA PSV is 77 cm/s. The left ICA EDV is 33 cm/s. The left ICA/C CA PSV ratio is 1.0. The ECA PSV is 54 cm/s. There is antegrade flow in the left vertebral artery. IMPRESSION: 1. Less than 50% stenosis in the right internal carotid artery by sonographic criteria. 2. Less than 50% stenosis in the left internal carotid artery by sonographic criteria. Reviewed, dictated and finalized at location B. CTOR DATA PROCESSING IMPRESSION: 1. Less than 50% stenosis in the right internal carotid artery by sonographic c kayla. 2. Less than 50% stenosis in the left internal carotid artery by sonographic cr john.
== END 2024-07-17 13:32 | disposition home or self-care (01) ==
LOC: CHSIMG 13:33
PROVIDERS: PCP Internal Medicine; Visit Provider Internal Medicine
DX: R51.9 Headache, unspecified (principal); R42 Dizziness and giddiness; I65.23 Occlusion and stenosis of bilateral carotid arteries
CPT/HCPCS: 93880

== ENCOUNTER 2024-10-21 08:47 | Outpatient (CLI) | payer MEDICARE, SELFPAY ==
[2024-10-21 09:20] LABS: Add Urine Microscopic? NO; Appearance Urine Clear (Clear); Basophils Absolute Auto 0.01 K/mm3 (0.00-0.10); Basophils Percent Auto 0.1 % (0.0-1.0); Bilirubin Urine Negative (Negative); Blood Urine Negative (Negative); Color Urine Light Yellow (Yellow); Eosinophils Absolute Auto 0.17 K/mm3 (0.02-0.50); Eosinophils Percent Auto 2.5 % (1.0-6.0); Glucose Urine UA Negative (Negative); Hemoglobin 13.6 g/dL (12.4-15.3); Immature Granulocyte Absolute 0.01 K/mm3 (0.00-0.00); Immature Granulocyte Percent A 0.1 % (0.0-0.0); Ketones Urine Negative (Negative); Leukocyte Esterase Ur Negative (Negative); Lymphocytes Absolute Auto 1.49 K/mm3 (1.10-4.50); Lymphocytes Percent Auto 21.7 % (18.0-42.0); Mean Corpuscular HGB Conc 33.2 g/dL (32-36); Mean Corpuscular Hemoglobin 30.8 pg (27.0-31.0); Monocytes Absolute Auto 0.73 K/mm3 (0.10-0.90); Monocytes Percent Auto 10.6 % (2.0-11.0); Neutrophils Absolute Auto 4.47 K/mm3 (1.70-7.20); Nitrate Urine Negative (Negative); Platelet Count Result 193 K/mm3 (150-420); Protein Urine Negative (Negative); Red Blood Count 4.41 M/mm3 (4.70-6.10); Red Cell Distribution Width 13.8 % (11.6-14.4); Specific Grav Ur 1.025 (1.010-1.020); Urobilinogen Urine 0.2 mg/dL (0.2-1.0); White Blood Count 6.9 K/mm3 (4.8-10.8)
--- OUTSIDE RECORDS SUMMARY | 2024-10-21 09:32 | XMS_ITS | Encounter Summary ---
Author Organization [facility] Address [address] [place] [address] Care Team Providers Care Cardiac Exercise Specialist Name Role Phone Zohaib Pettit MD Primary Care Provider [phone] Encounter Details Date Type Department Care Team (Late st Contact Info) Description 06/29/2005 Outpatient Historical [facility] [address] [id number] Giovanni Quezada MD [address] [facility] [address] [place] [address] Social History Tobacco Use Types Packs/Day Years Used Date Smoking Tobacco: Never Assessed Sex and Gender Information Value Date Recorded Sex Assigned at Not on file 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
--- OUTSIDE RECORDS SUMMARY | 2024-10-21 09:32 | XMS_ITS | Encounter Summary ---
Author Organization [facility] Address [address] [place] [phone] Care Team Providers Care Roofing Applicator Name Role Phone Zohaib Pettit MD Primary Care Provider [phone] Encounter Details Date Type Department Care Team (Late st Contact Info) Description 07/12/2005 Outpatient Historical [facility] [address] [facility] [address] [place] [phone] Rasheed Davies MD [address] 

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
--- OUTSIDE RECORDS SUMMARY | 2024-10-21 09:32 | XMS_ITS | Encounter Summary ---
Author Organization [facility] Address [address] [place] [phone] Care Team Providers Care Eyelet Riveter Name Role Phone Zohaib Pettit MD Primary Care Provider [phone] Encounter Details Date Type Department Care Team (Late st Contact Info) Description 07/04/2005 Outpatient Historical [facility] [address] [facility] [address] [place] [phone] Rasheed Davies MD [address] 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
--- OUTSIDE RECORDS SUMMARY | 2024-10-21 09:33 | XMS_ITS | Clinical Summary ---
Author Organization [facility] Address [address] [place] [address] Phone Care Team Providers Care Paper Stacker Name Role Phone Hola Hewitt MD Primary Care Provider [phone] Allergies No known active allergies Medications simvastatin (ZOCOR) 10 MG Tablet Take 10 mg by mouth every evening. Active lisinopril-hyd rochlorothiazi de (PRINZIDE, ZESTORETIC) 20-25 MG Tablet Take 1 Tab by mouth daily. Active levothyroxine (SYNTHROID) 125 MCG Tablet Take 125 mcg by mouth daily. 2 TABS Active aspirin EC 81 MG Tablet Delayed Response Take 81 mg by mouth daily. Active HYDROcodone-ac etaminophen (NORCO) 10-325 MG Tablet Take 1 Tab by mouth every 6 hours as needed for Pain. Active acetaminophen (TYLENOL) 500 MG Tablet Take 1 Tab by mouth every 6 hours as needed for Pain or Fever (for temperature greater than 100.4 F). Do not exceed 3000 mg of acetaminophen in 24 hour from all sources. 6 Active Additional Information Patient not taking.Reported on 07/19/2018 metFORMIN (GLUCOPHAGE) 500 MG Tablet Take 1 Tab by mouth 2 times daily. 8 Active diclofenac (VOLTAREN) 0.1 % SolutionIndica tions:Corneal irritation of left eye Place 1 Drop in affected eye(s) 4 times daily. 5 mL 8 Active Additional Information Patient not taking.Reported on 07/19/2018 valACYclovir (VALTREX) 1 GM TabletIndicati ons:Cold sore 2 tablets orally twice daily for one day 4 Tab 8 Active Active Problems Problem Noted Date Diagnosed Date Rotator cuff tear, right 11/18/2015 Family History Medical History Relation Name Comments Diabetes Father Hypertension Father Renal Failure Father Heart Disease Mother Pacemaker Mother Relation Name Status Comments Father Mother Alive Social History Tobacco Use Types Packs/Day Years Used Date Smoking Tobacco: Former Smokeless Tobacco: Never Tobacco Cessation:Counseling Given: No Alcohol Use Standard Drinks/Week Comments Not Asked 2 (1 standard drink = 0.6 oz pur e alcohol) Sex and Gender Information Value Date Recorded Sex Assigned at Not on file Legal Sex Male 7:41 PM CDT Gender Identity Not on file Sexual Orientation Not on file Last Filed Vital Signs Vital Sign Reading Time Taken Comments Blood Pressure 138/78 07/19/2018 1:08 PM WATER SYSTEMS ENGINEER Pulse 74 07/19/2018 1:08 PM WATER SYSTEMS ENGINEER Temperature 36.7 C (98 F) 07/19/2018 1:08 PM WATER SYSTEMS ENGINEER Respiratory Rate 20 01/27/2018 3:44 PM CDT Oxygen Saturation 98% 07/19/2018 1:08 PM WATER SYSTEMS ENGINEER Inhaled Oxygen Concentration - - Weight 126.1 kg (278 lb) 07/19/2018 1:08 PM WATER SYSTEMS ENGINEER Height 180.3 cm (5' 11 ) 07/19/2018 1:08 PM WATER SYSTEMS ENGINEER Body Mass Index 38.77 07/19/2018 1:08 PM WATER SYSTEMS ENGINEER Plan of Treatment Health Maintenance Due Date Last Done Comments Hepatitis C Virus (HCV) Screening 1955 Colonoscopy 2000 Colorectal Cancer Screening 2000 Cologuard 2005 Immunochemical Fecal Occult Blood 2005 PSA Discussion 2010 Zoster Immunization (2 of 3) 11/05/2015 09/10/2015 Pneumococcal Immunization (5 0+ years) (2 of 2 - PPSV23) 09/10/2016 09/10/2015 Influenza Immunization (#1) 2024 SARS-COV-2 Immunization (1 - 2023- season) 2024 Respiratory Syncytial Virus (RSV) Immunization (Adult) (1 - 1-dose 75+ series) 2030 DTaP/Tdap/Td Immunization Discontinued 09/10/2015 Pneumococcal Immunization Combined Discontinued 2015 TdaP Immunization Completed 09/10/2015 Hepatitis B Immunization Aged Out No longer eligible based on patient's age to complete this topic Meningococcal Immunization (ACWY) Aged Out No longer eligible based on patient's age to complete this topic Rotavirus Immunization Aged Out No lo nger eligible based on patient's age to complete this topic Medical Devices Implanted Type Area Newscast Producer Device Identifier Shelf Expiration Date Model / Serial / Lot Heidelberg Suture Closed Eyelet Twist In Kno - [id number] Implanted:Qty: 1 on 11/18/2015 by Martínez Bloom MD at [facility] IMPLANT Right: Shoulder [employer] 08/13/2017 [id number] C / / [id number] Heidelberg Suture Biocomposite Corkscrew Lat - [id number] Implanted:Qty: 1 on 11/18/2015 by Martínez Bloom MD at [facility] IMPLANT Right: Shoulder [employer] 05/13/2017 [id number] / / [id number] Insurance [facility] Care Teams Paper Stacker Relationship Specialty Start Date End Date Hola Hewitt MD [address] [place] [address] PCP - General Internal Medicine 10/20/15
--- OUTSIDE RECORDS SUMMARY | 2024-10-21 09:33 | XMS_ITS | Encounter Summary ---
Author Organization [facility] Address [address] [place] [id number] Care Team Providers Care Washing Machine Operator Name Role Phone Zohaib Pettit MD Primary Care Provider Encounter Details Date Type Department Care Team (Late st Contact Info) Description 06/17/2005 Outpatient Historical [facility] [id number] [facility] [address] [place] [phone] Rasheed Davies MD [address] 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
--- OUTSIDE RECORDS SUMMARY | 2024-10-21 09:33 | XMS_ITS | Encounter Summary ---
Author Organization [facility] Address [address] [place] [address] Care Team Providers Care Stunt Person Name Role Phone Zohaib Pettit MD Primary Care Provider [phone] Encounter Details Date Type Department Care Team (Late st Contact Info) Description 06/06/2005 Outpatient Historical [facility] [id number] [facility] [address] [place] [phone] Allen Ness MD [address] 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
--- OUTSIDE RECORDS SUMMARY | 2024-10-21 09:33 | XMS_ITS | Referral Summary ---
Author Organization [facility] Address [address] [place] [address] Care Team Providers Care Chili Powder Mixer Name Role Phone Hola Hewitt MD Primary Care Provider [phone] Encounters Date Type Department Care Team Description 09/05/2024 12:14 PM MANAGER CONTACT - 09/05/2024 11:59 PM MANAGER CONTACT Hospital Encounter [facility] [address] [place] [phone] Abnormal echocardiogram Discharge Disposition: Discharge to home or self care 08/01/[address] [facility] [address] [facility] [address] [place] [phone] Annmarie Parada MD 07/31/2024 2:00 PM MANAGER CONTACT Ancillary Procedure [facility] [address] [place] [address] [place] [phone] Left ventricular outflow tract obstruction 07/26/2024 2:00 PM MANAGER CONTACT Office Visit [facility] [address] [place] [address] [place] [phone] Annmarie Parada MD Hypertension associated with diabetes (HCC) (Primary Dx); Mixed hyperlipidemia; Statin myopathy; Left ventricular outflow tract obstruction 07/25/2024 Orders Only [facility] [address] [place] [address] Unknown, Notinfile from Last 3 Months Allergies Active Allergy Reactions Criticality Noted Date Comments Aspirin Rash Medium 06/07/2022 Empagliflozin Rash Medium 05/18/2022 Lisinopril Hives,Rash Medium 05/18/2022 Zqwltum-Qgr-Ytl Reductase Inhibitors Joint pain Low 06/07/2022 Medications acetaminophen (TYLENOL) 325 mg tablet Take 1 tablet (325 mg total) by mouth every 4 (four) hours as needed Active metoprolol XL (TOPROL-XL) 25 mg extended release tablet TAKE 1 TABLET BY MOUTH ONCE DAILY AT NIGHT AT BEDTIME 2 Active Ozempic 0.25 mg or 0.5 mg (2 mg/3 mL) pen injector injection INJECT 0.25MG SUBCUTANEOUSLY ONCE A WEEK ON THE SAME DAY OF EACH WEEK 3 Active losartan (COZAAR) 100 mg tablet Take 1 tablet (100 mg total) by mouth daily 90 tablet 3 4 025 Active levothyroxine (SYNTHROID) 150 mcg tablet Take 1 tablet (150 mcg total) by mouth daily 4 Active Active Problems Problem Noted Date Diagnosed Date Mixed hyperlipidemia 07/26/2024 Statin myopathy 09/20/2022 LVH (left ventricular hypertrophy) 07/19/2022 Left ventricular outflow tract obstruction 07/19 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 (LIZBETH-I) 02/23/2021 Mixed diabetic hyperlipidemi a associated with type 2 diabetes mellitus ([facility]) 12/06/2017 Hypotension due to drugs 12/06/2017 Dizziness 12/06/2017 Encounter for preventive health examination 12/2017 Need for prophylactic antibiotic 08/18/2017 Knee pain 08/01/2017 Rotator cuff tear, right 11/18/2015 Urinary incontinence 01/07/2015 Hypertension associated with diabetes 01/07/2015 Urethral stricture 12/12/2014 Hypothyroidism 10/14/2014 Overview (11/18/2016): Hypothyroidism Morbid obesity with BMI of 40.0-44.9, adult 10/2014 Overview (11/18/2016): Morbid obesity Murmur, heart 10/14/2014 Overview (11/18/2016): Murmur SUSAN on CPAP 10/14/2014 Overview (11/18/2016): SUSAN on CPAP Dyspnea on exertion 10/14/2014 Overview (11/18/2016): JACOBS (dyspnea on exertion) Resolved Problems Problem Noted Date Diagnosed Date Resolved Date Essential hypertension 12/06/201706/07 BMI 40.0-44.9, adult 12/06/2017 023 Benign hypertension 10/14/2014 07/19/20 22 Overview (11/18/2016): HTN (hypertension), benign Class 2 severe obesity due t o excess calories with serious comorbidity and body mass index (BMI) of 38.0 to 38.9 in adult 10/14/2014 3 Overview (11/18/2016): Obesity Immunizations Immunization Administration Dates Next Due Pneumococcal Conjugate PCV 13 09/10/2015 Tdap 09/10/2015 ZOSTER LIVE 09/10/2015 Social History Tobacco Use Types Packs/Day Years Used Date Smoking Tobacco: Former Smokeless Tobacco: Former Tobacco Cessation:Counseling Given: Not Answered Alcohol Use Standard Drinks/Week Comments Yes 0 (1 standard drink = 0.6 oz pur e alcohol) Sex and Gender Information Value Date Recorded Sex Assigned at Not on file Legal Sex Male 12:12 AM MANAGER CONTACT Gender Identity Not on file Sexual Orientation Not on file Last Filed Vital Signs Vital Sign Reading Time Taken Comments Blood Pressure 117/83 07/31/2024 2:51 PM MANAGER CONTACT Pulse 71 07/26/2024 2:04 PM MANAGER CONTACT Temperature 37.1 C (98.8 F) 02/23/2021 1:01 PM CDT Respiratory Rate 16 06/07/2023 2:50 PM CDT Oxygen Saturation 99% 07/26/2024 2:04 PM MANAGER CONTACT Inhaled Oxygen Concentration - - Weight 132 kg (291 lb) 07/26/2024 2:04 PM MANAGER CONTACT Height 180.3 cm (5' 11 ) 07/26/2024 2:04 PM MANAGER CONTACT Body Mass Index 40.59 07/26/2024 2:04 PM MANAGER CONTACT Plan of Treatment Not on file Medical Devices Implanted Type Area Packer And Carry Out Device Identifier Shelf Expiration Date Model / Serial / Lot Porp X2 Ear Procedures Procedure Name Priority Date/Time Associated Diagnosis Comments MRI CARDIAC M&FUNC W WO CONTRAST Schedule Routine, Read Routine (OP Routine) 09/05/2024 2:37 PM MANAGER CONTACT Abnormal echocardiogram TRANSTHORACIC ECHO (TTE) COMPLETE W DOPPLER/CF W CONTRAST Routine 07/31/2024 3:13 PM MANAGER CONTACT Left ventricular outflow tract obstruction SURGICAL PATHOLOGY Routine 07/25/2024 12:00 AM MANAGER CONTACT POCT LIPID PANEL Routine 12/12/2023 11:32 AM CDT Mixed diabetic hyperlipidemia associated with type 2 diabetes mellitus (CMS/HCC) (HCC) EGFR Routine 09/22/2017 3:23 AM MANAGER CONTACT HEMOGLOBIN A1C STAT 09/05/2017 9:57 AM MANAGER CONTACT from Last 3 Months or Most Recently Relevant to Health Maintenance Results * MRI Cardiac M&F W WO Contrast (09/05/2024 2:37 PM MANAGER CONTACT) Anatomical Region Laterality Modality Body N/A Magnetic Resonan ce 09/05/2024 4:07 PM MANAGER CONTACT Impressions 09/05/2024 4:39 PM MANAGER CONTACT 1. Global concentric hypertrophy, with qualitative subaortic acceleration likely secondary to muscular hypertrophy. No subaortic membrane or systolic anterior motion of the mitral valve. 2. 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 3. No delayed gadolinium enhancement suggestive of an infiltrative cardiomyopathy or infarct. Dictated by: Jorge Coelho MD The radiology attending physician has personally reviewed this study, and had reviewed and/or edited this written report and agrees with it. Electronically signed by: Sancho Castro M.D. Narrative 09/05/2024 4:39 PM MANAGER CONTACT EXAM: MRI CARDIAC M/T/FUNC W WO CONTRAST HISTORY: Subaortic gradient identified on echocardiography TECHNIQUE: Multiplanar MR imaging of the heart utilizing HASTE and TRUEFISP imaging sequences was performed before and after the administration of 19 mL intravenous gadolinium contrast agent according to a custom monitored protocol. 3-D postprocessing was subsequently performed on a dedicated 3-D workstation. COMPARISON: None available FINDINGS: There is concentric left ventricular hypertrophy with a maximum myocardial thickness of 22 mm at the mid chamber during diastole; this is located 48 mm from the mitral valve annulus in diastole. Qualitatively, there is a subaortic dephasing jet indicative of stenosis. There no systolic anterior motion of the anterior mitral valve leaflet. No subaortic membrane. The length of the anterior mitral valve leaflet in diastole is 28 mm. The atria are normal in size. The right ventricle is normal in size. No focal wall motion abnormality. 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 Functional information: Left ventricle: Ejection fraction: 61% End diastolic volume: 192 mL (75 mL/m2, indexed) End systolic volume: 75 mL (29 mL/m2, indexed) Stroke volume: 116 mL (45 mL/m2, indexed) Cardiac output: 7.0 L/min Cardiac index: 2.7 L/min/m2 End diastolic mass: 233.5 g (90.82 g/m2, indexed) LVEDV/LVEDM = 0.82 Right ventricle: Ejection fraction: 59% End diastolic volume: 148 mL (58 mL/m2, indexed) End systolic volume: 61 mL (24 mL/m2, indexed) Stroke volume: 88 mL (34 mL/m2, indexed) Cardiac output: 5.3 L/min Cardiac index: 2.1 L/min/m2 Valves: Mitral valve: There is myxoid degeneration of the mitral valve. No significant regurgitation. Tricuspid valve: normal Pulmonic valve: normal Aortic valve: normal Late gadolinium enhancement: No delayed gadolinium enhancement to suggest infiltrative cardiomyopathy or infarct. Patchy foci of apparent hyperintensity within the septum on the short axis images are likely artifactual, given no correlate on the four-chamber views. No signal abnormalities on the T1 or T2 maps. Mass of LGE: n/a LGE% of myocardial mass: n/a Flow Quantification: Aorta above valve: Peak velocity: 2.0 m/sec Peak pressure gradient: 16 mmHg Fwd flow: 91 mL Rev flow: 4 mL Net flow: 87 mL Regurgitant fraction: 4% Aorta below valve: (Flow calculations are less accurate in this region below the valve plane due to increased turbulence.) Peak velocity: 1.5 m/sec Gradient across LVOT: 6.4 mmHg. Pulmonary artery above valve: Peak velocity: 1.5 m/sec Peak pressure gradient: 8.7 mmHg Fwd flow: 97 mL Rev flow: 2 mL Net flow: 96 mL Regurgitant fraction: 1.5% Procedure Note Sancho Castro MD - 09/05/2024 EXAM: MRI CARDIAC M/T/FUNC W WO CONTRAST HISTORY: Subaortic gradient identified on echocardiography TECHNIQUE: Multiplanar MR imaging of the heart utilizing HASTE and TRUEFISP imaging sequences was performed before and after the administration of 19 mL intravenous gadolinium contrast agent according to a custom monitored protocol. 3-D postprocessing was subsequently performed on a dedicated 3-D workstation. COMPARISON: None available FINDINGS: There is concentric left ventricular hypertrophy with a maximum myocardial thickness of 22 mm at the mid chamber during diastole; this is located 48 mm from the mitral valve annulus in diastole. Qualitatively, there is a subaortic dephasing jet indicative of stenosis. There no systolic anterior motion of the anterior mitral valve leaflet. No subaortic membrane. The length of the anterior mitral valve leaflet in diastole is 28 mm. The atria are normal in size. The right ventricle is normal in size. No focal wall motion abnormality. 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 Functional information: Left ventricle: Ejection fraction: 61% End diastolic volume: 192 mL (75 mL/m2, indexed) End systolic volume: 75 mL (29 mL/m2, indexed) Stroke volume: 116 mL (45 mL/m2, indexed) Cardiac output: 7.0 L/min Cardiac index: 2.7 L/min/m2 End diastolic mass: 233.5 g (90.82 g/m2, indexed) LVEDV/LVEDM = 0.82 Right ventricle: Ejection fraction: 59% End diastolic volume: 148 mL (58 mL/m2, indexed) End systolic volume: 61 mL (24 mL/m2, indexed) Stroke volume: 88 mL (34 mL/m2, indexed) Cardiac output: 5.3 L/min Cardiac index: 2.1 L/min/m2 Valves: Mitral valve: There is myxoid degeneration of the mitral valve. No significant regurgitation. Tricuspid valve: normal Pulmonic valve: normal Aortic valve: normal Late gadolinium enhancement: No delayed gadolinium enhancement to suggest infiltrative cardiomyopathy or infarct. Patchy foci of apparent hyperintensity within the septum on the short axis images are likely artifactual, given no correlate on the four-chamber views. No signal abnormalities on the T1 or T2 maps. Mass of LGE: n/a LGE% of myocardial mass: n/a Flow Quantification: Aorta above valve: Peak velocity: 2.0 m/sec Peak pressure gradient: 16 mmHg Fwd flow: 91 mL Rev flow: 4 mL Net flow: 87 mL Regurgitant fraction: 4% Aorta below valve: (Flow calculations are less accurate in this region below the valve plane due to increased turbulence.) Peak velocity: 1.5 m/sec Gradient across LVOT: 6.4 mmHg. Pulmonary artery above valve: Peak velocity: 1.5 m/sec Peak pressure gradient: 8.7 mmHg Fwd flow: 97 mL Rev flow: 2 mL Net flow: 96 mL Regurgitant fraction: 1.5% IMPRESSION: 1. Global concentric hypertrophy, with qualitative subaortic acceleration likely secondary to muscular hypertrophy. No subaortic membrane or systolic anterior motion of the mitral valve. 2. 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 3. No delayed gadolinium enhancement suggestive of an infiltrative cardiomyopathy or infarct. Dictated by: Jorge Coelho MD The radiology attending physician has personally reviewed this study, and had reviewed and/or edited this written report and agrees with it. Electronically signed by: Sancho Castro M.D. [facility] Basia Parada MD IMG MRI PROCEDURES Consuelo l Result * TRANSTHORACIC ECHO (TTE) COMPLETE W DOPPLER/CF W CONTRAST (07/31/2024 3:13 PM MANAGER CONTACT) Anatomical Region Laterality Modality Ultrasound 07/31/2024 2:38 PM MANAGER CONTACT Narrative 07/31/2024 9:[address] [facility] Cardiology [address] [facility] [address], [place] [address] [address] [facility] [address], [place] [address] P:[phone] P:[phone] Echocardiographic Report Patient Name: ELVIRA LEONARDO L : 1955 Study Date: 07/31/2024 2:38:05 PM Gender: M Tech: ARASH Location: [facility] Provider: ANNMARIE PARADA Height(Cm): 178 BSA: 2.55 Weight(Kg): 132 Heart Rate: 68 BP: 135 / 67 Quality: Good Order Provider: ANNMARIE PARADA PROCEDURES: Echocardiographic Report: Transthoracic echocardiogram with complete 2D, M-Mode, color Doppler examination and Definity contrast. 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 MEASUREMENTS: 2D/MM Value Range Doppler Value Range Estimated EF 62 % SHANDA Vmax 2.87 cm2 [ 2.00 - 4.00 ] LVIDd 2D 4.12 cm [ 4.20 - 5.80 ] AV Mean PG 9 mmHg LVIDs 2D 3.50 cm [ 2.50 - 4.00 ] AV Peak Pradip 2.16 m/s [ 1.00 - 1.70 ] LVPWd 2D 1.59 cm [ 0.60 - 1.00 ] AV Peak PG 19 mmHg IVSd 2D 1.60 cm [ 0.60 - 1.00 ] AV VTI 44.79 cm LA Volume Index 42 cc/m2 [ 16 - 34 ] LVOT Diam 2.32 cm [ 1.70 - 2.10 ] LVOT Peak Pradip 1.46 m/s [ 0.70 - 1.10 ] LVOT VTI 31.80 cm MV E Peak Pradip 0.94 m/s [ 0.60 - 1.30 ] MV A Peak Pradip 1.22 m/s [ 1.00 - 1.20 ] MV Decel Time 253 msec [ 104 - 258 ] Lateral E` 0.04 m/s [ 0.10 - 0.15 ] E` 0.04 m/s E/E` 26 2D/MM Value Range Doppler Value Range - FINDINGS: Interpretation Site: Exam was interpreted at home. Left Ventricle: Normal left ventricular size. Definity contrast agent used to visually enhance endocardial wall motion and contractility. Lot Number: [id number]. Mild concentric left ventricular hypertrophy. Resting left ventricular outflow tract gradient is 64 mmHg. Hyperdynamic left ventricular function. No focal wall motion abnormalities. Impaired diastolic relaxation Grade I. Increased left heart filling pressures based on elevated E/E`. Ejection Fraction is visually estimated to be 62 %. Right Ventricle: Normal right ventricular size. Normal right ventricular systolic function. Left Atrium: The left atrium is normal in size. Right Atrium: The right atrium is normal in size. Atrial Septum: Normal atrial septum. Mitral Valve: Mitral valve leaflets appear mildly thickened. Trivial regurgitation of the mitral valve. Aortic Valve: Aortic valve not well visualized. No evidence of hemodynamically significant aortic stenosis by Doppler. Tricuspid Valve: Normal appearance of the tricuspid valve. Right ventricular systolic pressure could not be estimated due to inadequate visualization of the tricuspid regurgitation jet. Pulmonic Valve: Pulmonic valve not well visualized. Pericardium: Normal pericardium with no significant pericardial effusion. Aorta: Normal aortic root. IVC: The IVC is not well visualized. CONCLUSIONS: Suboptimal image quality. Definity contrast agent used to visually enhance endocardial wall motion and contractility. Normal LV size. Mild concentric left ventricular hypertrophy. Resting left ventricular outflow tract gradient is 64 mmHg. Hyperdynamic left ventricular function. No focal wall motion abnormalities. Impaired diastolic relaxation Grade I. Increased left heart filling pressures based on elevated E/E`. Ejection Fraction is visually estimated to be >70%. Normal right ventricular size. Normal right ventricular systolic function. Mitral valve leaflets appear mildly thickened. Trivial regurgitation of the mitral valve. Aortic valve not well visualized. No evidence of hemodynamically significant aortic stenosis by Doppler. Right ventricular systolic pressure could not be estimated due to inadequate visualization of the tricuspid regurgitation jet. Electronically Signed By: Praveen Nieto MD, [facility] 07/31/2024 9:14:03 PM MANAGER CONTACT 62 Procedure Note Praveen Nieto MD - 07/31/2024 [facility] Medical [facility] Cardiology [address] [facility] [address], [place] [address] [address] [facility] [id number], [place] [address] P:[phone] P:[phone] Echocardiographic Report Patient Name: ELVIRA LEONARDO L : 1955 Study Date: 07/31/2024 2:38:05 PM Gender: M Tech: ARASH Location: [facility] Provider: ANNMARIE PARADA Height(Cm): 178 BSA: 2.55 Weight(Kg): 132 Heart Rate: 68 BP: 135 / 67 Quality: Good Order Provider: ANNMARIE PARADA PROCEDURES: Echocardiographic Report: Transthoracic echocardiogram with complete 2D, M-Mode, color Dopplerexamination and Definity contrast. 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 MEASUREMENTS: 2D/MM Value Range Doppler ValueRange Estimated EF 62 % SHANDA Vmax 2.87cm2 [ 2.00 - 4.00 ] LVIDd 2D 4.12 cm [ 4.20 - 5.80 ] AV Mean PG 9mmHg LVIDs 2D 3.50 cm [ 2.50 - 4.00 ] AV Peak Pradip 2.16m/s [ 1.00 - 1.70 ] LVPWd 2D 1.59 cm [ 0.60 - 1.00 ] AV Peak PG 19mmHg IVSd 2D 1.60 cm [ 0.60 - 1.00 ] AV VTI 44.79cm LA Volume Index 42 cc/m2 [ 16 - 34 ] LVOT Diam 2.32 cm[ 1.70 - 2.10 ] LVOT Peak Pradip 1.46 m/s [ 0.70 - 1.10 ] LVOT VTI 31.80 cm MV E Peak Pradip 0.94 m/s [ 0.60 - 1.30 ] MV A Peak Pradip 1.22 m/s [ 1.00 - 1.20 ] MV Decel Time 253 msec [ 104 - 258 ] Lateral E` 0.04 m/s [ 0.10 - 0.15 ] E` 0.04 m/s E/E` 26 2D/MM Value Range Doppler ValueRange - FINDINGS: Interpretation Site: Exam was interpreted at home. Left Ventricle: Normal left ventricular size. Definity contrast agent used to visuallyenhance endocardial wall motion and contractility. Lot Number: [id number]. Mildconcentric left ventricular hypertrophy. Resting left ventricular outflow tract gradientis 64 mmHg. Hyperdynamic left ventricular function. No focal wall motionabnormalities. Impaired diastolic relaxation Grade I. Increased left heart filling pressures basedon elevated E/E`. Ejection Fraction is visually estimated to be 62 %. Right Ventricle: Normal right ventricular size. Normal right ventricular systolicfunction. Left Atrium: The left atrium is normal in size. Right Atrium: The right atrium is normal in size. Atrial Septum: Normal atrial septum. Mitral Valve: Mitral valve leaflets appear mildly thickened. Trivial regurgitation ofthe mitral valve. Aortic Valve: Aortic valve not well visualized. No evidence of hemodynamicallysignificant aortic stenosis by Doppler. Tricuspid Valve: Normal appearance of the tricuspid valve. Right ventricular systolicpressure could not be estimated due to inadequate visualization of the tricuspidregurgitation jet. Pulmonic Valve: Pulmonic valve not well visualized. Pericardium: Normal pericardium with no significant pericardial effusion. Aorta: Normal aortic root. IVC: The IVC is not well visualized. CONCLUSIONS: Suboptimal image quality. Definity contrast agent used to visually enhanceendocardial wall motion and contractility. Normal LV size. Mild concentric leftventricular hypertrophy. Resting left ventricular outflow tract gradient is 64 mmHg.Hyperdynamic left ventricular function. No focal wall motion abnormalities. Impaireddiastolic relaxation Grade I. Increased left heart filling pressures based onelevated E/E`. Ejection Fraction is visually estimated to be >70%. Normal right ventricular size. Normal right ventricular systolicfunction. Mitral valve leaflets appear mildly thickened. Trivial regurgitation ofthe mitral valve. Aortic valve not well visualized. No evidence of hemodynamicallysignificant aortic stenosis by Doppler. Right ventricular systolic pressure could not be estimated due toinadequate visualization of the tricuspid regurgitation jet. Electronically Signed By: Praveen Nieto MD, [facility] 07/31/2024 9:14:03 PM MANAGER CONTACT 62 [facility] Basia Parada MD CV ECHO PROCEDURES Consuelo l Result * Surgical pathology (07/25/2024 12:00 AM MANAGER CONTACT) Skin, punch biopsy 07/25/2024 07/31/2024 8:25 AM MANAGER CONTACT Narrative 08/02/2024 4:55 PM MANAGER CONTACT EPIC results best viewed via link to PDF [facility] [address] [place] [address], [address], [place] [address] [email or web address] Note to Patients: This report may contain a detailed description of human tissue sent by a health care provider to the laboratory for pathologic evaluation. The content of this report is essential for diagnosis and may provide important critical findings. This information may be unfamiliar to patients to review without a medical professional present. It is advised that the patient review this report in the presence of a health care provider who can answer questions and explain the details. FINAL REPORT Patient Information: PATIENT NAME: ELVIRA LEONARDO SEX: M : 1955 (Age: 69) Specimen Information: COLLECTED: 07/25/2024 RECEIVED: 07/31/2024 REPORTED: 08/02/2024 Submitting Physician Information: Maria Guadalupe Calderon [facility], [address] [place] [address], DERMATOPATHOLOGY REPORT RESULTS DIAGNOSIS: SKIN, RIGHT POSTERIOR SHOULDER, PUNCH BIOPSY: FOLLICULAR CYST, INFUNDIBULAR TYPE dh/spng By this signature, I attest that the above diagnosis is based upon my personal examination of the slides(and/or other material indicated in the diagnosis). Ke Camp MD, PhD Report Electronically Reviewed and Signed Out By Ke Camp MD, PhD 08/02/2024 16:55:03 CLINICAL INFORMATION EPIDERMAL INCLUSION CYST SPECIMEN DATA MICROSCOPIC DESCRIPTION: There is a cyst filled with orthokeratotic cornified cells and lined by epidermoid squamous epithelium. (L72.0) GROSS DESCRIPTION: Received in a formalin-containing bottle is a cylindrical piece of cornell-brown, finely scaling, slightly wrinkled skin and adipose tissue measuring 0.8 by 0.7 by 0.8 cm. The surgical margin is inked blue. Upon sectioning, a cystic structure is noted measuring 0.5 by 0.4 by 0.4 cm that is filled with pale cornell, flaky, homogenous material. The specimen is sectioned into 3 pieces and submitted entirely in 3 cassettes with the two end pieces in the first cassette. The end pieces are tagged orange for orienting purposes. Due to shrinkage, measurements may be different than those at time of procedure. exr/mat ICD-9 A; ZSD.657 Clerical Data A; 56472 The characteristics of special, immunohistochemical, and immunofluorescence stains and in-situ hybridization tests performed by the [facility] were deemed acceptable in ongoing it quality analyst measures and in compliance with regulations drawn from the Clinical Laboratory Improvement Act ip9092 (CLIA '88). Control reactions for all stains performed were deemed adequate and appropriate by a pathologist prior to evaluation of patient tissue. Some diagnoses were rendered with the assistance of laboratory-developed tests utilizing analyte-specific reagents; the performance characteristic of these tests were determined by [facility] and are not cleared or approved by the [place] Food an Drug administration. Laboratory developed test may only be performed in a facility that is certified by the [facility] as a high-complexity laboratory under CLIA '88. These tests are used for clinical purposes and are not investigational. us Notinfile Unknown LAB PATHOLOGY ORDERABLES Final Result * POCT lipid panel (12/12/2023 11:32 AM CDT) Cholesterol, POC 153 mg/dL HDL, POC 35 mg/dL Triglycerides, POC 103 mg/dL LDL Cholesterol POC 97 mg/dL Chol/HDL Ratio, POC 4.3 Non-HDL Cholesterol, POC 118 mg/dL Cholesterol Total, POC 153 mg/dL Capillary blood 12/12/2023 1 1:32 AM CDT Medhat Torres MD POINT OF CARE TEST ORDER MICHEL Final Result * eGFR (09/22/2017 3:23 AM MANAGER CONTACT) eGFR >60 mL/min/1.7 3 m2 NETO TOTH Comment: Interpretive Data Reference Interval Normal >/= 90 mL/min/1.73m2 Mildly decreased* 60 - 89 mL/min/1.73m2 Mildly to moderately decreased 45 - 59 mL/min/1.73m2 Moderately to severely decreased 30 - 44 mL/min/1.73m2 Severely decreased 15 - 29 mL/min/1.73m2 Kidney Failure < 15 mL/min/1.73m2 *Relative to young adult level If -Rwandan multiply value by 1.16. Estimated glomerular filtration rate is determined by the CKD-EPI equation recommended by the National Kidney Foundation (KDIGO 2012 Clinical Practice Guideline for the Evaluation and Management of Chronic Kidney Disease. Kidney Intnl Suppl Aug 2012;3:1). The CKD-EPI equation should not be used for patients with unstable renal function and has not been validated in children and those over 70. Current interpretive data was last reviewed 2016. Blood specimen (specimen) 09/22/2017 3:23 AM MANAGER CONTACT 09/22/2017 5:11 AM MANAGER CONTACT Narrative NETO TOTH - 09/22/2017 5:38 AM MANAGER CONTACT Chace Guzman MD LAB BLOOD ORDERABLES Final Result Performing Organization Address City/[facility]/ZIP Co de Phone Number [facility] [address] [address] [place] [address] * (ABNORMAL) Hemoglobin A1c (09/05/2017 9:57 AM MANAGER CONTACT) Hgb A1C 7.3(H) 4.0 - 6.0 % NETO OTTH Comment:Testing performed by : [facility], [address] [place] [address], [place]., [address] Blood specimen (specimen) 09/05/2017 9:57 AM MANAGER CONTACT 09/05/2017 1:38 PM MANAGER CONTACT Narrative NETO TOHT - 09/05/2017 1:53 PM MANAGER CONTACT Chace Guzman MD LAB BLOOD ORDERABLES Final Result NETO [facility] [id number] [employer] [place], [place] [id number] from Last 3 Months or Most Recently Relevant to Health Maintenance Insurance [facility] MEDICARE [facility] MEDICARE AETNA SENIOR SUPPLEMENT MEDICARE AETNA SENIOR SUPPLEMENT Care Teams Chili Powder Mixer Relationship Specialty Start Date End Date Hola Hewitt MD PCP - General Internal Medicine 09/20/22
--- OUTSIDE RECORDS SUMMARY | 2024-10-21 09:33 | XMS_ITS | Encounter Summary ---
Author Organization [facility] Address [address] [place] [address] Care Team Providers Care Hemming And Tacking Machine Operator Name Role Phone Zohaib Pettit MD Primary Care Provider [phone] Encounter Details Date Type Department Care Team (Late st Contact Info) Description 06/10/2005 Outpatient Historical [facility] [id number] [facility] [address] [place] [phone] Allen Ness MD [address] [facility] [address] [facility] [place] [address] Social History Tobacco Use Types Packs/Day Years Used Date Smoking Tobacco: Never Assessed Sex and Gender Information Value Date Recorded Sex Assigned at Not on file Legal Sex Male 2:43 AM MANAGER PRESENTATION Gender Identity Not on file Sexual Orientation Not on file documented as of this encounter Plan of Treatment Not on file documented as of this encounter Visit Diagnoses Not on filedocumented in this encounter Care Teams Hemming And Tacking Machine Operator Relationship Specialty Start Date End Date Zohaib Pettit MD PCP - General 08/04/15 documented as of this encounter
--- OUTSIDE RECORDS SUMMARY | 2024-10-21 09:33 | XMS_ITS | Clinical Summary ---
Author Organization [facility] Home Care [facility] Address [address] [place] [address] Care Team Providers Care Community Marketing Coordinator Name Role Phone Hola Hewitt MD Primary Care Provider [phone] Allergies Active Allergy Reactions Criticality Noted Date Comments Aspirin Rash Medium 06/07/2022 Empagliflozin Rash Medium 05/18/2022 Lisinopril Hives,Rash Medium 05/18/2022 Gaurmxz-Fjk-Sds Reductase Inhibitors Joint pain Low 06/07/2022 Medications [...] a associated with type 2 diabetes mellitus ([facility]) 12/06/2017 Hypotension due to drugs 12/06/2017 Dizziness [...] in adult 10/14/2014 3 Overview (11/18/2016): Obesity Encounters Date Type Department Care Team Description 09/05/2024 12:14 PM ART EDITOR - 09/05/2024 11:59 PM ART EDITOR Hospital Encounter [facility] [address] [place] [id number] Abnormal echocardiogram Discharge Disposition: Discharge to home or self care 08/01/2024 Telephone [facility] Cardiology [address] [place] [phone] Annmarie Parada MD 07/31/2024 2:00 PM ART EDITOR Ancillary Procedure [facility] Cardiology [address] [facility] [address] [place] [phone] Left ventricular outflow tract obstruction 07/26/2024 2:00 PM ART EDITOR Office Visit [facility] Cardiology [address] [place] [address] [address] [place] [address] Annmarie Parada MD Hypertension associated with diabetes (HCC) (Primary Dx); Mixed hyperlipidemia; Statin myopathy; Left ventricular outflow tract obstruction 07/25/2024 Orders Only [facility] [address] [place] [address] Unknown, Notinfile from Last 3 Months Immunizations Immunization Administration Dates Next Due Pneumococcal Conjugate PCV 13 09/10/2015 Tdap 09/10/2015 ZOSTER LIVE 09/10/2015 Surgical History Surgery Date Site/Laterality Comments HYDROCELE EXCISION / REPAIR CARDIAC CATHETERIZATION 08/14/2009 - 08/13/2010 Dr. Burgos- unremarkable REPLACEMENT TOTAL KNEE 08/14/2017 - 08/13/2018 Left Medical History Medical History Date Comments Personal history of other di seases of the circulatory system History of hypertension - (A dded by ANDRES Conv) Disorder of thyroid Thyroid trou ble - (Added by ANDRES Crawford) Murmur, cardiac Diabetes mellitus (HCC) Labile hypertension Foot pain Sleep apnea Scrotal mass Hyperlipidemia Pyuria Left leg swelling Family History Medical History Relation Name Comments COPD Father Diabetes Father Heart failure Father Hypertension Father Kidney disease Father Renal disease ; Stroke Father Thyroid disease Father Arrhythmia Mother Dementia Mother Hypertension Mother Thyroid disease Mother pacemaker Mother Thyroid disease Sister Relation Name Status Comments Father Mother Alive Sister Social History Tobacco Use Types Packs/Day Years Used Date Smoking Tobacco: Former Smokeless Tobacco: Former Tobacco Cessation:Counseling Given: Not Answered Alcohol Use Standard Drinks/Week Comments Yes 0 (1 standard drink = 0.6 oz pur e alcohol) Sex and Gender Information Value Date Recorded Sex Assigned at Not on file Legal Sex Male 12:12 AM ART EDITOR Gender Identity Not on file Sexual Orientation Not on file Obstetrics History Last Filed Vital Signs Vital Sign Reading Time Taken Comments Blood Pressure 117/83 07/31/2024 2:51 PM ART EDITOR Pulse 71 07/26/2024 2:04 PM ART EDITOR Temperature 37.1 C (98.8 F) 02/23/2021 1:01 PM CDT Respiratory Rate 16 06/07/2023 2:50 PM CDT Oxygen Saturation 99% 07/26/2024 2:04 PM ART EDITOR Inhaled Oxygen Concentration - - Weight 132 kg (291 lb) 07/26/2024 2:04 PM ART EDITOR Height 180.3 cm (5' 11 ) 07/26/2024 2:04 PM ART EDITOR Body Mass Index 40.59 07/26/2024 2:04 PM ART EDITOR Plan of Treatment Health Maintenance Due Date Last Done Comments Albumin Creatinine Ratio, Urine 1955 Colon Cancer Screening-Colonoscopy 1955 Depression Screening 1955 Fall Risk Assessment 1955 Hepatitis C Screening 1955 Prostate Cancer Screening-PSA 1955 Dilated Eye Exam 1955 Foot Exam 1955 Hepatitis B Screening 1973 Pneumococcal vaccine 65+ (2 of 2 - PPSV23) 11/05/2015 09/10/2015 Zoster Vaccine (2 of 3) 11/05/2015 09/10/2015 Hemoglobin A1C 03/05/2018 09/05/2017 eGFR 09/22/2018 09/22/2017, 09/05/2017 Abdominal Aortic Aneurysm (A AA) Screen 2020 Well Visit 65+ 2020 Influenza Vaccine (#1) 2024 Lipid Panel 12/11/2024 12/12/2023, 03/0 10/2022, 03/11/2022, Additional history exists DTaP/Tdap/Td Vaccine (2 - Td or Tdap) 09/10/2025 09/10/2015 Medical Devices Implanted Type Area Move Coordinator Device Identifier Shelf Expiration Date Model / Serial / Lot Porp X2 Ear Procedures Procedure Name Priority Date/Time Associated Diagnosis Comments MRI CARDIAC M&FUNC W WO CONTRAST Schedule Routine, Read Routine (OP Routine) 09/05/2024 2:37 PM ART EDITOR Abnormal echocardiogram TRANSTHORACIC ECHO (TTE) COMPLETE W DOPPLER/CF W CONTRAST Routine 07/31/2024 3:13 PM ART EDITOR Left ventricular outflow tract obstruction SURGICAL PATHOLOGY Routine 07/25/2024 12:00 AM ART EDITOR POCT LIPID PANEL Routine 12/12/2023 11:32 AM CDT Mixed diabetic hyperlipidemia associated with type 2 diabetes mellitus (CMS/HCC) (HCC) EGFR Routine 09/22/2017 3:23 AM ART EDITOR HEMOGLOBIN A1C STAT 09/05/2017 9:57 AM ART EDITOR from Last 3 Months or Most Recently Relevant to Health Maintenance Results * MRI Cardiac M&F W WO Contrast (09/05/2024 2:37 PM ART EDITOR) Anatomical Region Laterality Modality Body N/A Magnetic Resonan ce 09/05/2024 4:07 PM ART EDITOR Impressions 09/05/2024 4:39 PM ART EDITOR 1. Global concentric hypertrophy, with qualitative subaortic [...] Sancho Castro M.D. Narrative 09/05/2024 4:39 PM ART EDITOR EXAM: MRI CARDIAC M/T/FUNC W WO CONTRAST [...] it. Electronically signed by: Sancho Castro M.D. Annmarie Parada MD IMG MRI PROCEDURES Consuelo l Result * TRANSTHORACIC ECHO (TTE) COMPLETE W DOPPLER/CF W CONTRAST (07/31/2024 3:13 PM ART EDITOR) Anatomical Region Laterality Modality Ultrasound 07/31/2024 2:38 PM ART EDITOR Narrative 07/31/2024 9:15 PM ART EDITOR [facility] Cardiology [address] [facility] [address], [place] [address] [address] [facility] [address], [place] [address] P:[phone] P:[phone] Echocardiographic Report Patient Name: ELVIRA LEONARDO L : 1955 Study Date: 07/31/2024 2:38:05 PM Gender: M Tech: ARASH [facility] Provider: ANNMARIE PARADA Height(Cm): 178 BSA: 2.55 [...] jet. Electronically Signed By: Praveen Nieto MD, [facility] 07/31/2024 9:14:03 PM ART EDITOR 62 Procedure Note Praveen Nieto MD - 07/31/2024 [facility] Cardiology [address] [facility] [address], [place] [address] [address] [facility] [address], [place] [address] P:[phone] P:[phone] Echocardiographic Report Patient Name: ELVIRA LEONARDO L : 1955 Study Date: 07/31/2024 2:38:05 PM Gender: M Tech: ARASH [facility] Provider: ANNMARIE PARADA Height(Cm): 178 BSA: 2.55 [...] jet. Electronically Signed By: Praveen Nieto MD, FACC 07/31/2024 9:14:03 PM ART EDITOR 62 [facility] Basia Parada MD CV ECHO PROCEDURES Consuelo l Result * Surgical pathology (07/25/2024 12:00 AM ART EDITOR) Skin, punch biopsy 07/25/2024 07/31/2024 8:25 AM ART EDITOR Narrative 08/02/2024 4:55 PM ART EDITOR EPIC results best viewed via link to PDF [facility] Dermatopathology Center [facility] [facility], [address], [place] [address] [email or web address] Note to Patients: This report may contain [...] REPORTED: 08/02/2024 Submitting Physician Information: Maria Guadalupe Calderon, [facility] Skin Care [facility], [address] [place] [address], DERMATOPATHOLOGY REPORT RESULTS DIAGNOSIS: SKIN, RIGHT POSTERIOR [...] exr/mat ICD-9 A; ZSD.657 Clerical Data A; 99153 The characteristics of special, immunohistochemical, and immunofluorescence stains and in-situ hybridization tests performed by the [facility] were deemed acceptable in ongoing quality control tester measures and in compliance with regulations drawn from the Clinical Laboratory Improvement Act [id number] (CLIA '88). Control reactions for all stains performed were deemed adequate and appropriate by a pathologist prior to evaluation of patient tissue. Some diagnoses were rendered with the assistance of laboratory-developed tests utilizing analyte-specific reagents; the performance characteristic of these tests were determined by [facility] and are not cleared or approved by the US Food an Drug administration. Laboratory developed test may only be performed in a facility that is certified by the [facility] as a high-complexity laboratory under CLIA '88. [...] Final Result * eGFR (09/22/2017 3:23 AM ART EDITOR) eGFR >60 mL/min/1.7 3 m2 NETO SCHUMACHER Comment: Interpretive Data Reference Interval Normal >/= 90 mL/min/1.73m2 Mildly decreased* 60 - 89 mL/min/1.73m2 Mildly to moderately decreased 45 - 59 mL/min/1.73m2 Moderately to severely decreased 30 - 44 mL/min/1.73m2 Severely decreased 15 - 29 mL/min/1.73m2 Kidney Failure < 15 mL/min/1.73m2 *Relative to young adult level If -Ghanaian multiply value by 1.16. Estimated glomerular filtration [...] 2016. Blood specimen (specimen) 09/22/2017 3:23 AM ART EDITOR 09/22/2017 5:11 AM ART EDITOR Narrative [facility]AC[facility] - 09/22/2017 5:38 AM ART EDITOR Chace Guzman MD LAB BLOOD ORDERABLES Final Result Performing Organization Address [facility] Co de Phone Number [facility] [address] [employer] [place] [address] * (ABNORMAL) Hemoglobin A1c (09/05/2017 9:57 AM ART EDITOR) Hgb A1C 7.3(H) 4.0 - 6.0 % [facility]O [facility] Comment:Testing performed by : [facility], [facility] [facility], [place]., [address] Blood specimen (specimen) 09/05/2017 9:57 AM ART EDITOR 09/05/2017 1:38 PM ART EDITOR Narrative NETO JUSTINW[facility] - 09/05/2017 1:53 PM ART EDITOR Chace Guzman MD LAB BLOOD ORDERABLES Final Result Performing Organization Address City/[facility] Co de Phone Number [facility] [address] [employer]. [facility] [place] [address] from Last 3 Months or Most Recently Relevant to Health Maintenance Insurance [facility]ICARE [facility] AETNA SENIOR SUPPLEMENT MEDICARE AETNA SENIOR SUPPLEMENT Care Teams Community Marketing Coordinator Relationship Specialty Start Date End Date Hola Hewitt MD PCP - General Internal Medicine 09/20/22
--- OUTSIDE RECORDS SUMMARY | 2024-10-21 09:33 | XMS_ITS ---
Author Organization [facility] Address [address] [place] [address] Care Team Providers Care Medical Equipment Repair Technician Name Role Phone Los Lam Unavailable [phone] Hola Hewitt Unavailable Unavailable [employer], Provider Unavailable Unavailab le REASON FOR VISIT [facility] Conversion Encounter Medications Medication SIG (Take, Route, Frequency, Duration) Notes Start Date End Date Status Metoprolol Succinate ER 25 MG 1 tab(s) orally once a day A ctive metFORMIN HCl 500 MG 1 tab(s) orally 2 t imes a day Active Montelukast Sodium 10 MG 1 tab(s) orally once a day N ot-Taking Synthroid 200 MCG 1 tab(s) orally once a day for 30 day(s) Active predniSONE 20 MG 1 tab(s) orally once a day, PRN Not-Taking EpiPen 2-Eduardo 0.3 MG/0.3ML as directed intramuscularly once for 30 days Active Losartan Potassium 100 MG 1 tab(s) orally once a day for 30 days Active Famotidine 20 MG 1 tab(s) orally Qday Active Cetirizine HCl 10 MG 1 tab(s) orally Qday Active Encounters Encounter Location Date Provider Diagnosis [facility] [address] [place] [address] 01/27/2024 Provider [employer] 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 [facility] Conversion Encounter. * Medical History: * Medications: [...] * Electronic signature of Gisselle MURRAY-Migration on 10/21/2024 at 09:32 AM CDT Sign off status: Pending * Provider: Juan hamilton Migration Date: 0 01/27/2024 Generated for Daniel knight/Chelly/Stanislav on: 0 10/21/2024 09:32 AM CDT
--- OUTSIDE RECORDS SUMMARY | 2024-10-21 09:33 | XMS_ITS | Clinical Summary ---
Author Organization [facility] Address [address] [place] [address] Care Team Providers Care Mixer Dry Food Products Name Role Phone Hola Hewitt MD Primary Care Provider Source Comments [employer] [facility],non-owned Affiliates and Associated Physician Practices is amultiple site organization consisting of ambulatory clinics and hospital sitesin [place], [place], [place] and [place]. This disclosure is being madepursuant to the Care Everywhere program and may not contain all information available regarding this patient. Last updated 18[employer] Allergies No known active allergies Medications * Be aware that medications may not be up to date on this document. Alwaysverify current medications with the patient. Medication Sig Dispensed Refills Start Date End Date Status lisinopril-hydrochl orothiazide (PRINZIDE; ZESTORETIC) 20-25 MG tablet Take 1 Tab by mouth once daily 1 10/13/2014 Active aspirin (ASPIRIN) 81 MG tablet Take 81 mg by mouth once daily. Active simvastatin (ZOCOR) 10 MG tablet TK 1 T PO QPM 11 01/02/2016 Active acetaminophen (TYLENOL) 325 MG tablet Take 325 mg by mouth every 4 hours as needed for Fever or Pain Maximum allowable Acetaminophen amount = 4 Grams (4000 mg) / 24 hours. Active levothyroxine (SYNTHROID) 125 MCG tablet Take 250 mcg by mouth daily before breakfast Active HYDROcodone-acetami nophen (NORCO) 5-325 MG tablet Take 1 Tab by mouth every 6 hours as needed for Pain 30 Tab 0 02/04/2016 Active Additional Information Patient not taking.Reported on 02/09/2016 ciprofloxacin (CIPRO) 500 MG tablet Take 1 Tab by mouth every 12 hours 14 Tab 0 02/04/2016 Active Additional Information Patient not taking.Reported on 02/23/2016 azelastine (OPTIVAR) 0.05 % ophthalmic solution INSTILL ONE DROP IN OU BID 2 01/12/2016 Active PATADAY 0.2 % ophthalmic solution INSTILL ONE DROP IN OU D 3 01/13/2016 Active meloxicam (MOBIC) 15 MG tablet TK 1 T PO D WF UTD 2 04/19/2016 Acti ve predniSONE (DELTASONE) 10 MG tablet Take 10 mg by mouth once daily 0 04/19/2016 Active Active Problems No known active problems Family History Medical History Relation Name Comments ADHD Neg Hx Allergies Neg Hx Aneurysm Neg Hx Asthma Neg Hx Autoimmune Disease Neg Hx Bipolar Disorder Neg Hx CVA<55(male) Neg Hx CVA<65(female) Neg Hx Cancer - Breast Neg Hx Cancer - Colon Neg Hx Cancer - Other Neg Hx Cancer - Ovarian Neg Hx Cancer - Pancreatic Neg Hx Cancer - Prostate Neg Hx Childhood Hearing Disorder Neg Hx Clotting Disorder Neg Hx Depression Neg Hx Diabetes Neg Hx Eczema Neg Hx Genetic Neg Hx Heart defect Neg Hx Hypercholesterolemia Neg Hx Hypertension Neg Hx MT<55(male) Neg Hx MT<65(female) Neg Hx Mental Health Neg Hx Migraine Neg Hx Osteoporosis Neg Hx Seizures Neg Hx Sudd. <30 Neg Hx Thyroid Disease Neg Hx Ulcerative Colitis Neg Hx Social History Tobacco Use Types Packs/Day Years Used Date Smoking Tobacco: Never Smokeless Tobacco: Never Alcohol Use Standard Drinks/Week Comments Yes 0 (1 standard drink = 0.6 oz pur e alcohol) occasional Sex and Gender Information Value Date Recorded Sex Assigned at Not on file Gender Identity Not on file Sexual Orientation Not on file Last Filed Vital Signs Vital Sign Reading Time Taken Comments Blood Pressure 131/72 04/26/2016 10:21 AM CDT Pulse 88 04/26/2016 10:21 AM CDT Temperature 36.6 C (97.9 F) 02/23/2016 2:26 PM CDT Respiratory Rate 16 02/04/2016 4:32 PM CDT Oxygen Saturation 98% 04/26/2016 10:21 AM CDT Inhaled Oxygen Concentration - - Weight 158.8 kg (350 lb) 04/26/2016 10:21 AM CDT Height 180.3 cm (5' 11 ) 04/26/2016 10:21 AM CDT Body Mass Index 48.82 04/26/2016 10:21 AM CDT Plan of Treatment Health Maintenance Due Date Last Done Comments COLOGUARD (AGES 45-75) - COL ON CA SCREENING 1955 COLON MONITORING 1955 COLONOSCOPY - COLON CA SCREENING 1955 CT COLONOGRAPHY - COLON CA SCREENING 1955 Colorectal Cancer Screening 1955 FIT - COLON CA SCREENING 1955 FLEX SIG - COLON CA SCREENING 1955 MEDICARE AWV 12 MONTHS 1955 HEPATITIS C SCREENING 07/16/1973 DTAP/TDAP/TD VACCINES (1 - Tdap) 1974 PNEUMOCOCCAL VACCINE 50+ (1 of 1 - PCV) 2005 ZOSTER VACCINE (1 of 2) 2005 Respiratory Syncytial Virus (RSV) Vaccine Pt: or over 60 yrs (1 - Risk 60-74 years 1-dose series) 2015 COVID-19 VACCINE (2023-2 5 season) 2024 INFLUENZA VACCINE (#1) 2024 DEPRESSION SCREENING 08/14/2024 HEPATITIS B VACCINE Aged Out No longe r eligible based on patient's age to complete this topic HIB VACCINE Aged Out No longer eligi ble based on patient's age to complete this topic HPV VACCINE Aged Out No longer eligi ble based on patient's age to complete this topic MENINGOCOCCAL (Group B) VACCINE Aged Out No longer eligible based on patient's age to complete this topic MENINGOCOCCAL VACCINE Aged Out No kataj zelalem eligible based on patient's age to complete this topic Care Teams Mixer Dry Food Products Relationship Specialty Start Date End Date Hola Hewitt MD [address] [place] [address] PCP - General Internal Medicine 11/10/14
--- OUTSIDE RECORDS SUMMARY | 2024-10-21 09:33 | XMS_ITS | Patient Health Summary ---
Author Organization [facility] [employer] Address [address] [place] [address] Care Team Providers Care Advertising Copy Writer Name Role Phone Hola Hewitt MD Primary Care Provider [phone] Note from [facility],non-owned Affiliates and Associated Physician Practices is amultiple site organization consisting of ambulatory clinics and hospital sitesin [place], [place], [place] and [place]. This disclosure is being madepursuant to the Care Everywhere program and may not contain all information available regarding this patient. Last updated 18.[facility] [employer] Allergies No known active allergies Medications * Be aware that medications may not be up to date on this document. Alwaysverify current medications with the patient. * lisinopril-hydrochlorothiazide (PRINZIDE; ZESTORETIC) 20-25 MG tablet(Started 10/13/2014) Take 1 Tab by mouth once daily 1 refill left * aspirin (ASPIRIN) 81 MG tablet Take 81 mg by mouth once daily. * simvastatin (ZOCOR) 10 MG tablet(Started 01/02/2016) TK 1 T PO QPM 11 refills left * acetaminophen (TYLENOL) 325 MG tablet Take 325 mg by mouth every 4 hours as needed for Fever or Pain Maximum allowable Acetaminophen amount = 4 Grams (4000 mg) / 24 hours. * levothyroxine (SYNTHROID) 125 MCG tablet Take 250 mcg by mouth daily before breakfast * HYDROcodone-acetaminophen (NORCO) 5-325 MG tablet(Started 02/04/2016) Take 1 Tab by mouth every 6 hours as needed for Pain * ciprofloxacin (CIPRO) 500 MG tablet(Started 02/04/2016) Take 1 Tab by mouth every 12 hours * azelastine (OPTIVAR) 0.05 % ophthalmic solution(Started 01/12/2016) INSTILL ONE DROP IN OU BID 2 refills left * PATADAY 0.2 % ophthalmic solution(Started 01/13/2016) INSTILL ONE DROP IN OU D 3 refills left * meloxicam (MOBIC) 15 MG tablet(Started 04/19/2016) TK 1 T PO D WF UTD 2 refills left * predniSONE (DELTASONE) 10 MG tablet(Started 04/19/2016) Take 10 mg by mouth once daily Active Problems No known active problems Social History Tobacco Use Types Packs/Day Years [...] Mass Index 48.82 04/26/2016 10:21 AM CDT Procedures * URINALYSIS - POINT OF CARE(Performed 04/26/2016) Performed for Urethral stricture, unspecified stricture type * CARDIAC RHYTHM STRIP ORDER(Performed 02/06/2016) * OXYGEN(Performed 02/04/2016) * CYSTOSCOPY DIRECT VISION INTERNAL URETHROTOMY(Performed 02/04/2016) Performed for Urinary tract infection, site unspecified * CYSTOSCOPY DILATION URETHRA (WITH/WITHOUT MEATOTOMY)(Performed 02/04/2016) Performed for Urinary tract infection, site unspecified * CULTURE URINE(Performed 01/12/2016) Performed for Urinary tract infection, site unspecified * URINALYSIS - POINT OF CARE(Performed 01/12/2016) Performed for Urinary tract infection, site unspecified * URINALYSIS AUTO W MICROSCOPIC - POINT OF CARE (AMB)(Performed 12/08/2014) Performed for BPH (benign prostatic hypertrophy) with urinary obstruction, Epididymitis * CULTURE URINE(Performed 11/10/2014) Performed for Epididymitis * URINALYSIS AUTO W MICROSCOPIC - POINT OF CARE (AMB)(Performed 11/10/2014) Performed for BPH (benign prostatic hypertrophy) with urinary obstruction, Other specified causes of urethral stricture * CULTURE URINE(Performed 03/19/2013) * CULTURE URINE(Performed 03/19/2013) * PSA TOTAL (EXTERNAL RESULT ENTRY)(Performed 12/24/2012) * CULTURE URINE(Performed 12/07/2012) * US SCROTUM W DOPPLER(Performed 12/06/2012) * BLADDER SCAN(Performed 08/28/2012) Results * URINALYSIS - POINT OF CARE (04/26/2016 10:20 AM CDT) Only the most recent of2 resultswithin the time period is included. Clarity UA POCT n/a Color UA POCT n/a Leukocyte UA Small Negative Nitrite UA POCT Negative Negative Urobilinogen UA 1.0 0.1 - 1.0 Protein UA POCT Negative Negative pH UA 5.5 5.0 - 8.0 pH units Blood UA Large Negtive Specific Perry UA POCT 1.020 1.002 - 1.030 Ketone UA Negative Negative Bilirubin UA POCT Negative Negative Glucose UA 100 Negative Urine specimen (specimen) URINE / Unknown 04/26/2016 10:20 AM CDT Ori Arriaga MD LAB - POINT OF CARE ORDERABLES * CARDIAC RHYTHM STRIP ORDER (02/06/2016 9:54 PM CDT) Narrative 02/06/2016 9:54 PM CDT Ordered by an unspecified provider. Scanned Document CARDIAC SERVICES ORD ERABLES * CULTURE URINE (01/12/2016 11:30 AM CDT) Only the most recent of5 resultswithin the time period is included. Urine Culture Routine Final report [facility] INSURANCE BILL Result 1 No growth [facility] INSURANCE BILL Urine specimen (specimen) URINE SPECIMEN OBTAINED BY CLEAN CATCH PROCEDURE / Unknown 01/12/2016 11:30 AM CDT 01/12/2016 10:40 PM CDT Narrative Resulting Agency Comment [facility] [address] [phone] Ori Arriaga MD LAB - MICRO BIOLOGY ORDERABLES [facility] INSURANCE BILL [address] [place] [address] * (ABNORMAL) URINALYSIS AUTO W MICROSCOPIC - POINT OF CARE (AMB) (12/08/2014 1:10 PM CDT) Only the most recent of2 resultswithin the time period is included. Clarity UA POCT Color UA POCT Glucose UA neg Negative Bilirubin UA POCT neg Negative Ketone UA neg Negative Specific Perry UA POCT 1.020 1.002 - 1.030 Blood UA neg Negtive pH UA 7.0 5.0 - 8.0 pH units Protein UA POCT neg Negative Urobilinogen UA 4.0(A) 0.1 - 1.0 Nitrite UA POCT neg Negative Leukocyte UA trace Negative QC Verified Yes Yes RBC UA POCT 0 0 - 1 HPF WBC UA POCT 0 0 - 1 HPF Epithelial Cell UA POCT 0 0 - 1 HPF Bacteria UA POCT 0 None Mucus UA POCT 0 None Casts UA POCT 0 None LPF Crystals UA POCT 0 None LPF Urine Other Urine specimen (specimen) URINE / Unknown 12/08/2014 1:10 PM CDT Ori Arriaga MD LAB - POINT OF CARE ORDERABLES * PSA TOTAL (EXTERNAL RESULT ENTRY) (12/24/2012 4:09 PM CDT) PSA Total (EXTERNAL RESULT) 0.090 0.00 - 4.00 NG/ML OUTSIDE REFERENCE LAB BLOOD SPECIMEN / Unknown 12/24/2012 4:09 PM CDT Historical Provider LAB - CHEMISTRY O RDERABLES OUTSIDE REFERENCE LAB * US SCROTUM WITH DOPPLER (12/06/2012) Anatomical Region Laterality Modality Pelvis Other Ori Arriaga MD US ORDERABL ES * BLADDER SCAN (08/28/2012) Ori Arriaga MD NUR[facility] - [facility] Care Teams Advertising Copy Writer Relationship Specialty Start Date End Date Hola Hewitt MD [address], [place] [id number] PCP - General Internal Medicine 11/10/14
--- OUTSIDE RECORDS SUMMARY | 2024-10-21 09:33 | XMS_ITS ---
Author Organization [facility] Address [address] [place] [address] Care Team Providers Care Management Aide Name Role Phone Los Lam Unavailable [phone] MarcelinaHola Unavailable Unavailable Allergies No Known Allergies REASON FOR VISIT Hives follow-up, no interval hives, continues taking Zyrtec with decent control. Had episode of hives after holding Pepcid then Zyrtec. Now back on daily Zyrtec without breakthrough, Lip swelling, continues Zyrtec Medications Medication SIG (Take, Route, Frequency, Duration) Notes Start Date End Date Status PREDNISONE 20 mg 1 tab(s) orally once a day, PRN Not-Taking MONTELUKAST 10 mg 1 tab(s) orally once a day Not-Taking FAMOTIDINE 20 mg 1 tab(s) orally Qday Active SYNTHROID 200 mcg (0.2 mg) 1 tab(s) orally once a day for 30 day(s) Active CETIRIZINE 10 mg 1 tab(s) orally Qday Active EPIPEN 2-KUNAL 0.3 mg as directed intramuscularly once for 30 days Active METFORMIN 500 mg 1 tab(s) orally 2 ti mes a day Active METOPROLOL 25 mg 1 tab(s) orally once a day Active LOSARTAN 100 mg 1 tab(s) orally once a day for 30 days Active Social History Tobacco Use: Social History Observation Description Date Details (start date - stop date) Former Smoker NA - NA Smoking Smart Form: Question Answer Notes Are you a: former smoker How long it has been since you last smoked? > 10 years Vital Signs Blood pressure systolic 174 mm Hg 07/31/20 23 Blood pressure diastolic 98 mm Hg 023 Respiratory Rate 16 /min 07/31/2023 Height 72 in 07/31/2023 Weight 309 lbs 07/31/2023 BMI 41.9 kg/m2 07/31/2023 Oximetry 97 % 07/31/2023 Encounters Encounter Location Date Provider Diagnosis [facility] [address] [facility] [address] [place] [address] 07/31/2023 Los Greff Rash and other nonspecific skin eruption R21 ; Idiopathic urticaria L50.1 ; Angioneurotic edema, subsequent encounter T78.3XXD and Essential (primary) hypertension I10 Assessments Encounter Date Diagnosis (ICD Code) Assessment Notes Treatment Notes Treatment Clinical Notes Section Notes 07/31/2023 Rash and other nonspecific skin eruption (ICD-10 - R21) Rash concerning for hives in the setting of unknown exposure with associated lip swelling. Started early April 2021 > 6 weeks. Comes and goes, itchy, erythematous and rasised patches. Resolves with prednisone and mildly reponsive to low-dose antihistamine therapy. Pictures c/w idopathic urticaria. Hx also suggestive of adverse reaction to newly started Jardiance, as literature supports hives and angioedema of face and lips as possible s/e. Was able to tolerate holding Pepcid though had episode of hives and lip swelling after holding Zyrtec. Since restarting, has been without interval hives. Consider increased Zyrtec to BID if further breakthrough occurs. Follow-up in 6 months 07/31/2023 Idiopathic urticaria (ICD-10 - L50.1) History and pictures are c/w idiopathic urticaria diagnosis. Exacerbating and contributing factors are likely Jardiance, ASA, and ibuprofen and increased home stress. Doing well with dual daily therapy alone, after failing cessation of H1&H2 berry, with return of lip angioedema after 3 days. Continue with plan above Continue avoidance of NSAIDs including ASA, opioids, and ETOH. Do not resume Jardiance or Lisinopril Continue to journal for triggers Plan to treat as above 07/31/2023 Angioneurotic edema, subsequent encounter (ICD-10 - T78.3XXD) Lip swelling previously in the setting of rash, likely exacerbated by Lisinopril, ibuprophen and ASA use. plan to continue as above. Given likely idiopathic nature of his swelling. I would recommend having AIE on hand in case of return of his swelling Normal C4 and tryptase levels. 07/31/2023 Essential (primary) hypertension (ICD-10 - I10) Elevated BP in the setting of known hypertension without signs or symptoms concerning for urgency or emergency. Continue to monitor per PCP. Avoid all LIZBETH inhibitors and ARBs, as they likely exacerbated lip angioedema and this is a common s/e Set to f/u with PCP Dr. Raygoza later this week 07/31/2023 Other Plan Of Treatment Medication Medication Name Sig Start Date Stop Date Notes FAMOTIDINE 20 mg 1 tab(s) orally Qday CETIRIZINE 10 mg 1 tab(s) orally Qday EPIPEN 2-KUNAL 0.3 mg as directed intramus cularly once for 30 days METFORMIN 500 mg 1 tab(s) orally 2 times a day METOPROLOL 25 mg 1 tab(s) orally once a day Treatment Notes Assessment Notes Rash and other nonspecific skin eruption Rash concerning for hives in the setting of unknown exposure with associated lip swelling. Started early April 2021 > 6 weeks. Comes and goes, itchy, erythematous and rasised patches. Resolves with prednisone and mildly reponsive to low-dose antihistamine therapy. Pictures c/w idopathic urticaria. Hx also suggestive of adverse reaction to newly started Jardiance, as literature supports hives and angioedema of face and lips as possible s/e. Was able to tolerate holding Pepcid though had episode of hives and lip swelling after holding Zyrtec. Since restarting, has been without interval hives. Consider increased Zyrtec to BID if further breakthrough occurs. Follow-up in 6 months Idiopathic urticaria History and pictures are c/w idiopathic urticaria diagnosis. Exacerbating and contributing factors are likely Jardiance, ASA, and ibuprofen and increased home stress. Doing well with dual daily therapy alone, after failing cessation of H1&H2 berry, with return of lip angioedema after 3 days. Continue with plan above Continue avoidance of NSAIDs including ASA, opioids, and ETOH. Do not resume Jardiance or Lisinopril Continue to journal for triggers Plan to treat as above Angioneurotic edema, subsequent encounte r Lip swelling previously in the setting of rash, likely exacerbated by Lisinopril, ibuprophen and ASA use. plan to continue as above. Given likely idiopathic nature of his swelling. I would recommend having AIE on hand in case of return of his swelling Normal C4 and tryptase levels. Essential (primary) hypertension Elevate d BP in the setting of known hypertension without signs or symptoms concerning for urgency or emergency. Continue to monitor per PCP. Avoid all LIZBETH inhibitors and ARBs, as they likely exacerbated lip angioedema and this is a common s/e Set to f/u with PCP Dr. Raygoza later this week Next Appt Details Follow Up: 6 months, Reason: Evaluation and Management Provider Name:Los Aragon Zeus bentley, 01/27/2025 10:45:00 AM, [address], [place], [address], Progress Notes * Ang HASTINGSDOB: [birth year] (68 yo M)Acc No.[id number]:07/31/2023 Progress Notes Patient: Ang FAN Provider: Irving Lam PA-C :1955 A ge:68 Y S ex:Male Date:07/31/2023 Address:[address] [place] [address], [id number] Subjective: * Chief Complaints: * H gay follow-up, no interval hives, continues taking Zyrtec with decent control. Had episode of hives after holding Pepcid then Zyrtec. Now back on daily Zyrtec without breakthroughLip swelling, continues Zyrtec * HPI: * Introduction: I had the pleasure of seeing Treva Hastings 65-year-old male with a history of HTN, DM, and hypothyroidism who presents today in consultation with Dr. Hewitt for evaluation and management of recurrent rash with interval lip and leg swelling. He is alone for today's visit. Descriptors of his symptoms are outlined below. Lip swelling started in February. Seen in ER, thought to be related to his Lisinopril, got shot in the but and some medicine and sent me on my way. Symptoms resolved next day. Seen PCP and switched to Metoprolol. He also started Jardiance for his DM. Noticed swelling reappeared on his lips. Lasted 1day then would go away, but came off-and on. Rash then started (started around ) which would come and go, predominantly on chest. Then spread to face, legs, arms. Areas also affected include compression areas. Rash is itchy, erythematous, and rasied. Saw PCP and started Zyrtec, Benadryl, and Singulair. Pictures reviewed today, c/w hives. Rash subsided some, but still present. Reports prednisone with some relief, but rash reappeared. He decided to stop all medications for ~1 week (around mid-April). Rash seemed to resolve, but leg swelling started. Resumed medications again. Reports workup for blood clot, with negative doppler. He also reports blood work with PCP, pending. States concerns for Lupus? Restarted Prednisone again last night. He does take low-dose ASA daily. He takes ibuprofen PRN for arthritis. Denies opioids. PRN ETOH use, denies exacerbation in rash. He does use skin care products that contain fragrances and dyes as well. He reports increased stress in his life. Today, he reports no fevers, chills, night sweats or other constitutional symptoms encid= [id number] >Ang Hastings 67-year-old male with a history of HTN, DM, hypothyroidism and hives who returns today for follow-up, he is alone for today's visit. He again denies any interval NSAID including ASA use. No ETOH. Continues off Lisinopril and Jardiance which was the presumed trigger. Historically, Lip swelling started in February 2022. Seen in ER, thought to be related to his Lisinopril, got shot in the but and some medicine and sent me on my way. Symptoms resolved next day. He also started Jardiance for his DM. Noticed swelling reappeared on his lips. Lasted 1 day then would go away, but came off-and on. Rash then started (started around April) which would come and go, predominantly on chest. Then spread to face, legs, arms. Areas also affected include compression areas. Rash is itchy, erythematous, and rasied. Saw PCP and started Zyrtec, Benadryl, and Singulair. Has been able to hold Pepcid with minimal issue. That said had hives and lip swelling after holdign Zyrtec. Has since restarted [facility] breakthrough.Today, he reports no fevers, chills, night sweats or other constitutional symptoms. * ROS: A LLERGY: runny nose N o. s cratchy throat N o. i tchy eyes N o. e ar fullness N o. s inus congestion N o. P ositive p er the HPI and history, otherwise unremarkable. S PECIAL SENSES: Positve for n one. c ataracts N o. g laucoma?No. l oss of hearing Y es. i tching in ears N o. r inging in ears Y es.?loss of balance N o. l oss of smell N o. d ry eyes N o. e xcessive tearing N o. i tching eyes N o. l oss of taste N o. c onjunctivitis N o. e ar infections N o. C ONSTITUTIONAL: weight gain N o. l oss of appetite N o. f ever?No. w eakness N o. w eight loss N o. f atigue N o. n ight sweats?No. P ositive for n one. E NT: cold N o. c ough N o. e pistaxis N o. h earing loss Y es. c hange in voice N o. s ore throat N o. r inging in ears?Yes. s inus pain N o. P ositive p er the HPI and history, otherwise unremarkable. R ESPIRATORY: shortness of breath N o. c hest pain N o. c hest congestion N o. c ough N o. P ositive p er the HPI and history, otherwise unremakable. O PHTHALMOLOGY: diminished vision Y es. e ye irritation Y es. d rainage from eyes N o. b lurring of vision N o. s easonal eye sx N o. P ositive for p er the HPI and history, othewise unremarkable. i tching N o. s ensitivity to light N o. d ischarge N o. w atering N o. s welling of the eyelids N o. r edness N o. E NDOCRINOLOGY: fatigue N o. p olydipsia Y es. p olyuria Y es. w eight loss N o. s leep disturbance N o. c old intolerance N o. h eat intolerance Y es. d iabetes Y es. P ositive for n one. C ARDIOLOGY: chest pain N o. p alpitations N o. l eg edema?Yes. d izziness N o. s hortness of breath N o. P ositive for n one. G ASTROENTEROLOGY: dysphagia N o. a bdominal pain N o. n ausea?No. v omiting N o. c onstipation N o. d iarrhea N o. b lood in stool?No. i ndigestion N o. h emorrhoids N o. P ositive for n one. ? U ROLOGY: difficulty urinating N o. b lood in urine N o. f requent urination N o. u rinary incontinence N o. r ecurrent UTI N o. P ositive for n one. D ERMATOLOGY: rash N o. m ole N o. l umps N o. d ry or sensitive skin N o. h gay (urticaria) Y es. a cne N o. s kin cancer N o. P ositive for p er the HPI and history, otherwise unremakable. N EUROLOGY: headache N o. t ingling numbness N o. s eizures?No. i nsomnia N o. m queenie loss N o. d izziness N o. g ait abnormality N o. P ositive for n one. H EMATOLOGY/LYMPH: Positive for n one. M USCULOSKELETAL: joint swelling N o. j oint pain N o. l eg cramps N o. j oint stiffness N o. s ciatica N o. o steoporosis N o. f racture N o. c arpal tunnel N o. g out N o. P ositive for n one. P SYCHOLOGY: high stress level N o. d epression N o. s leep disturbances N o. s uicidal ideation N o. e ating disorder N o. m ental or physical abuse N o. a nxiety N o. P ositive for n one. M MILAGROS REPRODUCTIVE: difficulty with erection N o. d iminished sexual drive?No. p enile discharge N o. i nfertility N o. A ll other review of systems per the HPI and history, othwise unremarkable. * Medical History: * Surgical History: samuel nee replacement Hydrocele 03/17/2022 * Hospitalization/Major Diagno stic Procedure: D enies Past Hospitalization * Family History: F ather: , No, diagnosed with Diabetes mellitus type I. M other: alive, Yes, diagnosed with Hypertension. P aternal Grand Father: No. P aternal Grand Mother: No. M aternal Grand Father: No. M aternal Grand Mother: No. S iblings: Yes. C hildren: No. Father passed from kidney failure Mom has hypothyroidism. * Social History: M arital Status What is your marital status? m arried A lcohol Screening Do you ever drink alcoholic beverages? Y es Number of drinks per occasion: 2 Frequency? M onthly S moking Are you a : f sangeeta smoker S moking Smart Form Are you a: f sangeeta smoker How long it has been since you last smoked? > 10 years R ecreational drug use Have you ever used recreational drugs? N o D etails on consumption of certain products? Do you regularly consume products with aspartame; Equal or NutraSweet? N o Do you regularly consume products with artificial coloring??No Have you ever noticed worsening of your rash with these food items? N o A re any of the following personal care products containing fragrance, dye or preservatives used regularly? Shampoo: N o Conditioner: N o Soap: N o Laundry Detergent: N o Fabric Softener: N o Deodorant: N o Perfume, cologne, after shave: N o Air freshners or other scented products: N o O ccupation Are you currenly employed? N o Have you had any job with high exposure to fumes, chemicals, dust or other noxious substances? N o Are you currently a student? N o E nvironmental History Living environment: p rivate home Where is the home located? r ural Age of home: 1 5 How long have you lived there? 5 years or more How many people live in the home? 2 H ome description Basement: Y es Any water damage in basement? N o Smokers in the home? N o Smokers outside the home? N o Air Conditioning? Y es Central Air? Y es Forced air heating? Y es Gas or electric? g as Fireplace? Y es Used how often? w inter months only Wood burning stove? N o Do you vacuum the home? Y es Air purification systems? N o Pillow and mattress dust-proof encasings? Y es Do you use a humidifier? N o Do you own any pets? Y es What kind(s)? (click all that apply) d og Where do your pets sleep? b edroom Fabric softeners used? Y es Plants in the home? Y es How many? 3 0 Where are they kept? o utside,other room in home Is there carpeting in your bedroom? Y es Age of carpet? 5 Do you have hngx-ab-xzol carpeting? Y es What is the age of your carpeting? 5 What is the age of your mattress (years)? 2 What material(s) are used to manufacture your bedding and pillow? o ther What is the age of your pillow (years)? 1 What material are your bedding items made of? n atural fiber (e.g. cotton) Do you sleep with quilts or blankets or a duvet? Y es What material? s ynthetic How many dogs? 1 How many birds? 0 * Medications: T akingmetoprolol 25 mg tablet, extended release 1 tab(s) orally once a day metFORMIN 500 mg tablet 1 tab(s) orally 2 times a day EpiPen 2-Kunal 0.3 mg kit as directed intramuscularly once losartan 100 mg tablet 1 tab(s) orally once a day Synthroid 200 mcg (0.2 mg) tablet 1 tab(s) orally once a day Cetirizine 10 mg tablet 1 tab(s) orally Qday Taking metoprolol 25 mg tablet, extended release 1 tab(s) orally once a day Taking metFORMIN 500 mg tablet 1 tab(s) orally 2 times a day Taking EpiPen 2-Kunal 0.3 mg kit as directed intramuscularly once Taking losartan 100 mg tablet 1 tab(s) orally once a day Taking Synthroid 200 mcg (0.2 mg) tablet 1 tab(s) orally once a day Taking Cetirizine 10 mg tablet 1 tab(s) orally Qday Not-Taking/PRNfamotidine 20 mg tablet 1 tab(s) orally Qday montelukast 10 mg tablet 1 tab(s) orally once a day predniSONE 20 mg tablet 1 tab(s) orally once a day, PRN Medication List reviewed and reconciled with the patientNot-Taking/PRN famotidine 20 mg tablet 1 tab(s) orally Qday Not-Taking/PRN montelukast 10 mg tablet 1 tab(s) orally once a day Not-Taking/PRN predniSONE 20 mg tablet 1 tab(s) orally once a day, PRN Medication List reviewed and reconciled with the patient * Allergies: N .K.D.A.no[Allergies Verified] Objective: * Vitals: B P:174/98mm Hg, Repeat BP:162/101, HR:73/min, RR:16/min, Pulse Oximetry:97%, CU- Q2oL: 27, UAS7: 0, Ht: 72 in, Wt: 309 lbs, BMI:41.9Index. * Examination: G eneral examination: General appearance: p leasant, well-developed, well-nourished, male, in no apparent distress. HEENT: p upils equal, round, and reactive to light and accommodation, conjunctiva are normal bilaterally, no tongue swelling, and uvula is midline. Oral cavity: n ormal, no lesions. Neck, thyroid : s upple, non-tender, no anterior cervical lymphadenopathy. Heart: R RR, S1-S2, no murmurs, no rubs, no gallops. Lungs: c lear to auscultation in all lung vee, no wheezes or crackles. Neurologic exam: u nremarkable. Skin: e rythema to cheeks and nose, no urticaria, angioedema. Peripheral pulses: n ormal (2+) bilaterally. Back: n ormal. Extremities: n ormal ROM, no clubbing, no cyanosis, no edema. Genitalia: n ot performed. Influenza Vaccine not administered R rony: P atient Reason T ype of Patient Reason: R efused Assessment: * Assessment: 1. R yamilet and other nonspecific skin eruption - R21 (Primary) 2 . I diopathic urticaria - L50.1 3 . A ngioneurotic edema, subsequent encounter - T78.3XXD 4 . E ssential (primary) hypertension - I10 Plan: * Treatment: 2. I diopathic urticaria Continue Cetirizine tablet, 10 mg, 1 tab(s), orally, Qday; H old famotidine tablet, 20 mg, 1 tab(s), orally, Qday. Notes: History and pictures are c/w idiopathic urticaria diagnosis. Exacerbating and contributing factors are likely Jardiance, ASA, and ibuprofen and increased home stress. Doing well with dual daily therapy alone, after failing cessation of H1&H2 berry, with return of lip angioedema after 3 days. Continue with plan above Continue avoidance of NSAIDs including ASA, opioids, and ETOH. Do not resume Jardiance or Lisinopril Continue to journal for triggers Plan to treat as above 3. A ngioneurotic edema, subsequent encounter Continue EpiPen 2-Kunal kit, 0.3 mg, as directed, intramuscularly, once, 30 days, 1, Refills 0. ? Notes: Lip swelling previously in the setting of rash, likely exacerbated by Lisinopril, ibuprophen and ASA use. plan to continue as above. Given likely idiopathic nature of his swelling. I would recommend having AIE on hand in case of return of his swelling Normal C4 and tryptase levels. 4. E ssential (primary) hypertension Continue metoprolol tablet, extended release, 25 mg, 1 tab(s), orally, once a day. Notes: Elevated BP in the setting of known hypertension without signs or symptoms concerning for urgency or emergency. Continue to monitor per PCP. Avoid all LIZBETH inhibitors and ARBs, as they likely exacerbated lip angioedema and this is a common s/e Set to f/u with PCP Dr. Raygoza later this week? 5. O thers Continue metFORMIN tablet, 500 mg, 1 tab(s), orally, 2 times a day. * Procedure Codes: G 8427 DOC MEDS VERIFIED W/PT OR [id number] PT-FOCUSED HLTH RISK [id number] FLU IMM NO ORD/ADMIN DOC FRANCESCO * Preventive Medicine: Counseling: M edication instruction: W atch for side effects of prescribed medications. E ducation: O ur staff spent an additional 30 minutes in direct contact with the patient educating them on their current diagnoses and proper treatment and prevention of symptoms and the proper use of medications, Avoid opioid-containing analgesics, Avoid excessive alcohol use, Avoid NSAIDs (non-steroidal anti-inflammatories) - list provided, Avoid fragrances, dyes, preservatives in personal care products. P atient education material sent to portal? Y es C are goal follow up plan BMI management provided Y es Above Normal BMI Follow-up W eight monitoring B P Management: FIRST HYPERTENSIVE BP READING FOLLOW-UP PLAN: F ollow-up 1 month REFERRAL TO ALTERNATIVE / PRIMARY CARE PROVIDER: R eferral to general practitioner * Follow Up: 6 months (Reason: Evaluation and Management) * Billing Information: * Visit Code: 65009 Office Visit, Est Pt., Level 4. Modifiers: 25 * Procedure Codes: G8427 DOC MEDS VERIFIED W/[place]. [address] PT-FOCUSED HLTH RISK ASSMT. G8483 FLU IMM NO ORD/ADMIN DOC FRANCESCO. * ROOM DANCER Sign off status: Completed true * Provider: Irving Lam PA-C Date: 1 10/01/2022 Generated for Daniel knight/Chelly/eTransmitting on: 0 10/21/2024 09:33 AM CDT History and Physical Notes * HPI (History of Present Illness) Category Sub-Category Detail Notes Category Not es *Introduction I had the pleasure o f seeing Ang Hastings 67-year-old male with a history of HTN, DM, hypothyroidism and hives who returns today for follow-up, he is alone for today's visit. He again denies any interval NSAID including ASA use. No ETOH. Continues off Lisinopril and Jardiance which was the presumed trigger. Historically, Lip swelling started in February 2022. Seen in ER, thought to be related to his Lisinopril, got shot in the but and some medicine and sent me on my way. Symptoms resolved next day. He also started Jardiance for his DM. Noticed swelling reappeared on his lips. Lasted 1 day then would go away, but came off-and on. Rash then started (started around April) which would come and go, predominantly on chest. Then spread to face, legs, arms. Areas also affected include compression areas. Rash is itchy, erythematous, and rasied. Saw PCP and started Zyrtec, Benadryl, and Singulair. Has been able to hold Pepcid with minimal issue. That said had hives and lip swelling after holdign Zyrtec. Has since restarted wtthout breakthrough.Today, he reports no fevers, chills, night sweats or other constitutional symptoms Examination Category Sub-Category Detail Notes Category Not es General examination HEENT: pupils equal , round, and reactive to light and accommodation, conjunctiva are normal bilaterally, no tongue swelling, and uvula is midline Neck, thyroid : supple, non-tender, no anterior cervical lymphadenopathy Heart: RRR, S1-S2, no murmu rs, no rubs, no gallops Lungs: clear to auscultatio n in all lung vee, no wheezes or crackles Extremities: normal ROM, no clubb ing, no cyanosis, no edema General appearance: pleasant, well-devel oped, well-nourished, male, in no apparent distress Skin: erythema to cheeks a nd nose, no urticaria, angioedema Neurologic exam: unremarkable Oral cavity: normal, no lesions Peripheral pulses: normal (2+) bilatera lly Back: normal Genitalia: not performed Influenza Vaccine not administered Reason:: Kimberley ent Reason Type of Patient Reason:: Refused
--- OUTSIDE RECORDS SUMMARY | 2024-10-21 09:33 | XMS_ITS | Encounter Summary ---
Author Organization [facility] Address [address] [place] [address] Care Team Providers Care Therapist Phys Name Role Phone Zohaib Pettit MD Primary Care Provider [phone] Encounter Details Date Type Department Care Team (Late st Contact Info) Description 06/24/2005 Outpatient Historical [facility] [address] [facility] [address] [place] [phone] Rasheed Davies MD [address] 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
--- OUTSIDE RECORDS SUMMARY | 2024-10-21 09:33 | XMS_ITS | Encounter Summary ---
Author Organization [facility] Address [address] [place] [address] Care Team Providers Care Car Ferrier Name Role Phone Zohaib Pettit MD Primary Care Provider [phone] Encounter Details Date Type Department Care Team (Late st Contact Info) Description 06/02/2005 Outpatient Historical [facility] Support Serv. (Adt Cardiology-[facility]) [address] 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
--- OUTSIDE RECORDS SUMMARY | 2024-10-21 09:33 | XMS_ITS | Referral Summary ---
Author Organization [facility] Address [address] [place] [address] Care Team Providers Care Cardiology Teacher Name Role Phone Hola Hewitt MD Primary Care Provider Source Comments [facility],non-owned Affiliates and Associated Physician Practices is amultiple site organization consisting of ambulatory clinics and hospital sitesin [place], [place], [place] and [place]. This disclosure is being madepursuant to the Care Everywhere program and may not contain all information available regarding this patient. Last updated 18.[facility] Allergies No known active allergies Medications * [...] Active Active Problems No known active problems Social [...] Mass Index 48.82 04/26/2016 10:21 AM CDT Functional Status Functional Status Response Date of Assess ment Is person deaf or have serious hearing difficult y? No 02/04/2016 Is person blind or have serious difficulty seein g? No 02/04/2016 Does person have serious dif ficulty walking/climbing stairs? No 02/04/2016 Does person have difficulty dressing/bathing? No 02/04/2016 Does person have difficulty doing errands alone? No 02/04/2016 Cognitive Status Response Date of Assessm ent Does person have difficulty concentrating/remembering/making decisions? No 02/04/2016 Plan of Treatment Not on file Care Teams Cardiology Teacher Relationship Specialty Start Date End Date Hola Hewitt MD [address] [place] [address] PCP - General Internal Medicine 11/10/14
--- OUTSIDE RECORDS SUMMARY | 2024-10-21 09:34 | XMS_ITS | Encounter Summary ---
Author Organization [facility] Address [address] [place] [address] Care Team Providers Care City Solicitor Name Role Phone Zohaib Pettit MD Primary Care Provider [phone] Encounter Details Date Type Department Care Team (Late st Contact Info) Description 2005 Outpatient Historical [facility] [address] [facility] [address] [place] [address] Allen Ness MD [address] [facility] [address] [facility] [place] [address] Social History Tobacco Use Types Packs/Day Years Used Date Smoking Tobacco: Never Assessed Sex and Gender Information Value Date Recorded Sex Assigned at Not on file 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
--- OUTSIDE RECORDS SUMMARY | 2024-10-21 09:34 | XMS_ITS | Encounter Summary ---
Author Organization [facility] Address [address] [place] [address] Care Team Providers Care Restaurant Crew Member Name Role Phone Zohaib Pettit MD Primary Care Provider [phone] Encounter Details Date Type Department Care Team (Late st Contact Info) Description 06/02/2005 Outpatient Historical [facility] [address] [facility] [address] [place] [address] Allen Ness MD [address] 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
--- OUTSIDE RECORDS SUMMARY | 2024-10-21 09:34 | XMS_ITS | Encounter Summary ---
Author Organization [facility] Address [address] [place] [address] Care Team Providers Care Solar Designer/Installer Name Role Phone Zohaib Pettit MD Primary Care Provider [phone] Encounter Details Date Type Department Care Team (Latest Contact Info) Description 10/28/2005 Outpatient Historical [facility] Davies, Rasheed Holliday MD [address] [place] [address] Disorder of Bone and Cartilage, Unspecified (Primary Dx) Social History Tobacco Use Types Packs/Day Years Used Date Smoking Tobacco: Never Assessed Sex and Gender Information Value Date Recorded Sex Assigned at Not on file 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
--- OUTSIDE RECORDS SUMMARY | 2024-10-21 09:34 | XMS_ITS | Encounter Summary ---
Author Organization [facility] Address [address] [place] [address] Care Team Providers Care Assistant Producer Name Role Phone Zohaib Pettit MD Primary Care Provider [phone] Encounter Details Date Type Department Care Team (Late st Contact Info) Description 09/30/2005 Outpatient Historical [facility] [address] [facility] [address] [place] [address] Rasheed Davies MD [address] 

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
--- OUTSIDE RECORDS SUMMARY | 2024-10-21 09:34 | XMS_ITS | Clinical Summary ---
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
--- OUTSIDE RECORDS SUMMARY | 2024-10-21 09:34 | XMS_ITS | Encounter Summary ---
Author Organization [facility] Address 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 Gender Identity Not on file Sexual Orientation Not on file documented as of this encounter Plan of Treatment Not on file documented as of this encounter Procedures Procedure Name Priority Date/Time Associated Diagnosis Comments CBC WITH DIFFERENTIAL Routine 06/07/2005 5:00 AM CDT CBC WITH DIFFERENTIAL Routine 06/07/2005 5:00 AM CDT BASIC METABOLIC PANEL Routine 06/07/2005 5:00 AM CDT PHOSPHORUS Routine 06/07/2005 4:04 AM CDT MAGNESIUM LEVEL Routine 06/07/2005 4:04 AM CDT CALCIUM IONIZED Routine 06/07/2005 4:04 AM CDT CBC WITH DIFFERENTIAL Routine 06/06/2005 4:00 AM CDT CBC WITH DIFFERENTIAL Routine 06/06/2005 4:00 AM CDT T4 FREE Routine 06/06/2005 4:00 AM CDT PREALBUMIN Routine 06/06/2005 4:00 AM CDT PHOSPHORUS Routine 06/06/2005 4:00 AM CDT MAGNESIUM LEVEL Routine 06/06/2005 4:00 AM CDT CALCIUM IONIZED Routine 06/06/2005 4:00 AM CDT HEPATIC FUNCTION PANEL Routine 06/06/2005 4:00 AM CDT BASIC METABOLIC PANEL Routine 06/06/2005 4:00 AM CDT CBC WITH DIFFERENTIAL Routine 06/05/2005 7:25 AM CDT CBC WITH DIFFERENTIAL Routine 06/05/2005 7:25 AM CDT PHOSPHORUS Routine 06/05/2005 3:20 AM CDT MAGNESIUM LEVEL Routine 06/05/2005 3:20 AM CDT CALCIUM IONIZED Routine 06/05/2005 3:20 AM CDT BASIC METABOLIC PANEL Routine 06/05/2005 3:20 AM CDT URINALYSIS W/REFLEX MICROSCOPIC Routine 06/04/2005 4:05 AM CDT CBC WITH DIFFERENTIAL Routine 06/04/2005 1:10 AM CDT CBC WITH DIFFERENTIAL Routine 06/04/2005 1:10 AM CDT PHOSPHORUS Routine 06/04/2005 1:10 AM CDT MAGNESIUM LEVEL Routine 06/04/2005 1:10 AM CDT BASIC METABOLIC PANEL Routine 06/04/2005 1:10 AM CDT CALCIUM IONIZED Routine 06/04/2005 1:09 AM CDT TROPONIN (W/REFLEX CKMB/CK) Routine 06/03/2005 4:45 AM CDT CBC WITH DIFFERENTIAL Routine 06/03/2005 4:45 AM CDT CBC WITH DIFFERENTIAL Routine 06/03/2005 4:45 AM CDT TSH Routine 06/03/2005 4:45 AM CDT CALCIUM IONIZED Routine 06/03/2005 4:45 AM CDT BASIC METABOLIC PANEL Routine 06/03/2005 4:45 AM CDT PHOSPHORUS Routine 06/03/2005 4:00 AM CDT MAGNESIUM LEVEL Routine 06/03/2005 4:00 AM CDT TROPONIN (W/REFLEX CKMB/CK) Routine 06/02/2005 9:00 PM CDT TROPONIN (W/REFLEX CKMB/CK) Routine 06/02/2005 2:40 PM CDT TROPONIN (W/REFLEX CKMB/CK) Routine 06/02/2005 4:01 AM CDT CBC WITH DIFFERENTIAL Routine 06/02/2005 4:01 AM CDT CBC WITH DIFFERENTIAL Routine 06/02/2005 4:01 AM CDT PHOSPHORUS Routine 06/02/2005 4:01 AM CDT MAGNESIUM LEVEL Routine 06/02/2005 4:01 AM CDT CALCIUM IONIZED Routine 06/02/2005 4:01 AM CDT BASIC METABOLIC PANEL Routine 06/02/2005 4:01 AM CDT MYOGLOBIN, URINE Routine 06/01/2005 9:17 PM CDT DRUG SCREEN, URINE Routine 06/01/2005 9: 17 PM CDT URINALYSIS W/REFLEX MICROSCOPIC Routine 06/01/2005 9:17 PM CDT TROPONIN (W/REFLEX CKMB/CK) Routine 06/01/2005 9:00 PM CDT PHOSPHORUS Routine 06/01/2005 8:53 PM CDT MAGNESIUM LEVEL Routine 06/01/2005 8:53 PM CDT documented in this encounter Results * (ABNORMAL) CBC WITH DIFFERENTIAL (06/07/2005 5:00 AM CDT) NEUTROPHILS 60 45 - 70 % INTERFAC E SYSTEM LYMPHOCYTES 21 16 - 45 % INTERFAC E SYSTEM MONOCYTES 14(H) 3 - 13 % INTERFACE SYSTEM EOSINOPHILS 4 0 - 7 % INTERFAC E SYSTEM BASOPHILS 0 0 - 2 % INTERFACE SYSTEM NEUTROPHIL ABSOLUTE 4.05 1.90 - 7.00 K/uL INTERFACE SYSTEM LYMPHOCYTE ABSOLUTE 1.43 0.70 - 4.50 K/uL INTERFACE SYSTEM MONOCYTE ABSOLUTE 0.91 0.10 - 1.30 K/uL INTERFACE SYSTEM EOSINOPHIL ABSOLUTE 0.29 0.00 - 0.70 K/uL INTERFACE SYSTEM BASOPHILS ABSOLUTE 0.03 0.00 - 0.20 K/uL INTERFACE SYSTEM 06/07/2005 5:00 AM CDT us Allen Ness MD HEMATOLOGY ORDERABLES Final Res ult INTERFACE SYSTEM Refer to clinic/hospital department * (ABNORMAL) CBC WITH DIFFERENTIAL (06/07/2005 5:00 AM CDT) WBC 6.7 4.0 - 9.8 K/uL INTERFACE SYSTEM RBC 4.09(L) 4.50 - 5.40 M/uL INTERFACE SYSTEM HEMOGLOBIN 12.9(L) 13.6 - 16.5 g/dL INTERFACE SYSTEM HEMATOCRIT 37.9(L) 40.0 - 48.0 % INTERFACE SYSTEM MCV 92.7 82.0 - 99.0 fL INTERFACE SYSTEM MCH 31.5 27.2 - 32.6 pg INTERFACE SYSTEM MCHC 34.0 31.5 - 35.5 % INTERFACE SYSTEM RDW 13.2 11.5 - 14.5 % INTERFACE SYSTEM RDW-STDEV 45.2 37.1 - 48.7 fL INTERFACE SYSTEM PLATELETS 197 140 - 350 K/uL INTERFACE SYSTEM MPV 9.8 9.3 - 12.4 fL INTERFACE SYSTEM 06/07/2005 5:00 AM CDT Allen Ness MD HEMATOLOGY ORDERABLES Final Res ult Performing Organization Address [facility] Phone Number INTERFACE SYSTEM Refer to clinic/hospital department * (ABNORMAL) BASIC METABOLIC PANEL (06/07/2005 5:00 AM CDT) GLUCOSE 117(H) 65 - 109 mg/dL INTERFACE SYSTEM CREATININE 0.9 0.5 - 1.3 mg/dL INTERFACE SYSTEM CALCIUM 8.6 8.6 - 10.2 mg/dL INTERFACE SYSTEM BUN 10 6 - 20 mg/dL INTERFACE SYSTEM SODIUM 139 135 - 145 mmol/L INTERFACE SYSTEM POTASSIUM 4.4 3.5 - 4.9 mmol/L INTERFACE SYSTEM CHLORIDE 100 96 - 108 mmol/L INTERFACE SYSTEM CO2 28 22 - 30 mmol/L INTERFACE SYSTEM 06/07/2005 5:00 AM CDT Allen Ness MD CHEMISTRY ORDERABLES Final Resu lt Performing Organization Address [facility] de Phone Number INTERFACE SYSTEM Refer to clinic/hospital department * PHOSPHORUS (06/07/2005 4:04 AM CDT) PHOSPHORUS 4.5 2.5 - 4.5 mg/dL INTERFACE SYSTEM 06/07/2005 4:04 AM CDT Allen Ness MD CHEMISTRY ORDERABLES Final Resu lt Performing Organization Address [facility] Phone Number INTERFACE SYSTEM Refer to clinic/hospital department * MAGNESIUM LEVEL (06/07/2005 4:04 AM CDT) MAGNESIUM 1.9 1.5 - 2.5 mg/dL INTERFACE SYSTEM 06/07/2005 4:04 AM CDT Allen Ness MD CHEMISTRY ORDERABLES Final Resu lt Performing Organization Address [facility] Phone Number INTERFACE SYSTEM Refer to clinic/hospital department * (ABNORMAL) CALCIUM IONIZED (06/07/2005 4:04 AM CDT) CALCIUM IONIZED 4.68(L) 4.76 - 5.16 mg/dL INTERFACE SYSTEM 06/07/2005 4:04 AM CDT Allen Ness MD CHEMISTRY ORDERABLES Final Resu lt Performing Organization Address [facility] Phone Number INTERFACE SYSTEM Refer to clinic/hospital department * (ABNORMAL) CBC WITH DIFFERENTIAL (06/06/2005 4:00 AM CDT) NEUTROPHILS 57 45 - 70 % INTERFAC E SYSTEM LYMPHOCYTES 25 16 - 45 % INTERFAC E SYSTEM MONOCYTES 15(H) 3 - 13 % INTERFACE SYSTEM EOSINOPHILS 3 0 - 7 % INTERFAC E SYSTEM BASOPHILS 0 0 - 2 % INTERFACE SYSTEM NEUTROPHIL ABSOLUTE 3.75 1.90 - 7.00 K/uL INTERFACE SYSTEM LYMPHOCYTE ABSOLUTE 1.64 0.70 - 4.50 K/uL INTERFACE SYSTEM MONOCYTE ABSOLUTE 0.95 0.10 - 1.30 K/uL INTERFACE SYSTEM EOSINOPHIL ABSOLUTE 0.22 0.00 - 0.70 K/uL INTERFACE SYSTEM BASOPHILS ABSOLUTE 0.01 0.00 - 0.20 K/uL INTERFACE SYSTEM 06/06/2005 4:00 AM CDT Rasheed Davies MD HEMATOLOGY ORDERABLES Final R esult Performing Organization Address [facility]/ZIP Co de Phone Number INTERFACE SYSTEM Refer to clinic/hospital department * (ABNORMAL) CBC WITH DIFFERENTIAL (06/06/2005 4:00 AM CDT) WBC 6.6 4.0 - 9.8 K/uL INTERFACE SYSTEM RBC 4.11(L) 4.50 - 5.40 M/uL INTERFACE SYSTEM HEMOGLOBIN 12.8(L) 13.6 - 16.5 g/dL INTERFACE SYSTEM HEMATOCRIT 38.4(L) 40.0 - 48.0 % INTERFACE SYSTEM MCV 93.4 82.0 - 99.0 fL INTERFACE SYSTEM MCH 31.1 27.2 - 32.6 pg INTERFACE SYSTEM MCHC 33.3 31.5 - 35.5 % INTERFACE SYSTEM RDW 13.1 11.5 - 14.5 % INTERFACE SYSTEM RDW-STDEV 45.2 37.1 - 48.7 fL INTERFACE SYSTEM PLATELETS 174 140 - 350 K/uL INTERFACE SYSTEM MPV 9.4 9.3 - 12.4 fL INTERFACE SYSTEM 06/06/2005 4:00 AM CDT Rasheed Davies MD HEMATOLOGY ORDERABLES Final R esult Performing Organization Address [facility] Phone Number INTERFACE SYSTEM Refer to clinic/hospital department * (ABNORMAL) PREALBUMIN (06/06/2005 4:00 AM CDT) PREALBUMIN 16(L) 20 - 40 mg/dL INTERFACE SYSTEM Comment:New Reference Range: Effective March 06/06/2005 4:00 AM CDT Rasheed Davies MD CHEMISTRY ORDERABLES Final Re sult Performing Organization Address [facility] Phone Number INTERFACE SYSTEM Refer to clinic/hospital department * (ABNORMAL) HEPATIC FUNCTION PANEL (06/06/2005 4:00 AM CDT) AST 42(H) 12 - 38 U/L INTERFACE SYSTEM ALKALINE PHOSPHATASE 38(L) 40 - 129 U/L INTERFACE SYSTEM BILIRUBIN TOTAL 0.3 0.2 - 1.0 mg/dL INTERFACE SYSTEM ALBUMIN 3.5 3.4 - 4.8 g/dL INTERFACE SYSTEM TOTAL PROTEIN 6.4 6.3 - 8.6 g/dL INTERFACE SYSTEM ALT 33 0 - 41 U/L INTERFACE SYSTEM BILIRUBIN DIRECT 0.1 0.0 - 0.3 mg/dL INTERFACE SYSTEM 06/06/2005 4:00 AM CDT Rasheed Davies MD CHEMISTRY ORDERABLES Final Re sult Performing Organization Address [facility] Phone Number INTERFACE SYSTEM Refer to clinic/hospital department * T4 FREE (06/06/2005 4:00 AM CDT) T4 FREE 0.9 0.9 - 1.7 ng/dL INTERFACE SYSTEM 06/06/2005 4:00 AM CDT Rasheed Davies MD CHEMISTRY ORDERABLES Final Re sult Performing Organization Address [facility] Phone Number INTERFACE SYSTEM Refer to clinic/hospital department * CALCIUM IONIZED (06/06/2005 4:00 AM CDT) CALCIUM IONIZED 4.88 4.76 - 5.16 mg/dL INTERFACE SYSTEM 06/06/2005 4:00 AM CDT us Rasheed Davies MD CHEMISTRY ORDERABLES Final Re sult Performing Organization Address [facility] Phone Number INTERFACE SYSTEM Refer to clinic/hospital department * (ABNORMAL) BASIC METABOLIC PANEL (06/06/2005 4:00 AM CDT) GLUCOSE 116(H) 65 - 109 mg/dL INTERFACE SYSTEM CREATININE 0.9 0.5 - 1.3 mg/dL INTERFACE SYSTEM CALCIUM 8.9 8.6 - 10.2 mg/dL INTERFACE SYSTEM BUN 12 6 - 20 mg/dL INTERFACE SYSTEM SODIUM 137 135 - 145 mmol/L INTERFACE SYSTEM POTASSIUM 4.2 3.5 - 4.9 mmol/L INTERFACE SYSTEM CHLORIDE 98 96 - 108 mmol/L INTERFACE SYSTEM CO2 31(H) 22 - 30 mmol/L INTERFACE SYSTEM 06/06/2005 4:00 AM CDT Rasheed Davies MD CHEMISTRY ORDERABLES Final Re sult Performing Organization Address [facility] de Phone Number INTERFACE SYSTEM Refer to clinic/hospital department * (ABNORMAL) PHOSPHORUS (06/06/2005 4:00 AM CDT) PHOSPHORUS 4.6(H) 2.5 - 4.5 mg/dL INTERFACE SYSTEM 06/06/2005 4:00 AM CDT Rasheed Davies MD CHEMISTRY ORDERABLES Final Re sult Performing Organization Address [facility] de Phone Number INTERFACE SYSTEM Refer to clinic/hospital department * MAGNESIUM LEVEL (06/06/2005 4:00 AM CDT) MAGNESIUM 1.9 1.5 - 2.5 mg/dL INTERFACE SYSTEM 06/06/2005 4:00 AM CDT Rasheed Davies MD CHEMISTRY ORDERABLES Final Re sult Performing Organization Address [facility] de Phone Number INTERFACE SYSTEM Refer to clinic/hospital department * CBC WITH DIFFERENTIAL (06/05/2005 7:25 AM CDT) NEUTROPHILS 66 45 - 70 % INTERFAC E SYSTEM LYMPHOCYTES 21 16 - 45 % INTERFAC E SYSTEM MONOCYTES 12 3 - 13 % INTERFACE SYSTEM EOSINOPHILS 2 0 - 7 % INTERFAC E SYSTEM BASOPHILS 0 0 - 2 % INTERFACE SYSTEM NEUTROPHIL ABSOLUTE 5.20 1.90 - 7.00 K/uL INTERFACE SYSTEM LYMPHOCYTE ABSOLUTE 1.63 0.70 - 4.50 K/uL INTERFACE SYSTEM MONOCYTE ABSOLUTE 0.92 0.10 - 1.30 K/uL INTERFACE SYSTEM EOSINOPHIL ABSOLUTE 0.17 0.00 - 0.70 K/uL INTERFACE SYSTEM BASOPHILS ABSOLUTE 0.01 0.00 - 0.20 K/uL INTERFACE SYSTEM 06/05/2005 7:25 AM CDT Allen Ness MD HEMATOLOGY ORDERABLES Final Res ult Performing Organization Address [facility] de Phone Number INTERFACE SYSTEM Refer to clinic/hospital department * (ABNORMAL) CBC WITH DIFFERENTIAL (06/05/2005 7:25 AM CDT) WBC 7.9 4.0 - 9.8 K/uL INTERFACE SYSTEM RBC 4.33(L) 4.50 - 5.40 M/uL INTERFACE SYSTEM HEMOGLOBIN 13.9 13.6 - 16.5 g/dL INTERFACE SYSTEM HEMATOCRIT 40.3 40.0 - 48.0 % INTERFACE SYSTEM MCV 93.1 82.0 - 99.0 fL INTERFACE SYSTEM MCH 32.1 27.2 - 32.6 pg INTERFACE SYSTEM MCHC 34.5 31.5 - 35.5 % INTERFACE SYSTEM RDW 13.4 11.5 - 14.5 % INTERFACE SYSTEM RDW-STDEV 45.7 37.1 - 48.7 fL INTERFACE SYSTEM PLATELETS 173 140 - 350 K/uL INTERFACE SYSTEM MPV 9.8 9.3 - 12.4 fL INTERFACE SYSTEM 06/05/2005 7:25 AM CDT Allen Ness MD HEMATOLOGY ORDERABLES Final Res ult Performing Organization Address [facility] Phone Number INTERFACE SYSTEM Refer to clinic/hospital department * (ABNORMAL) CALCIUM IONIZED (06/05/2005 3:20 AM CDT) CALCIUM IONIZED 4.32(L) 4.76 - 5.16 mg/dL INTERFACE SYSTEM 06/05/2005 3:20 AM CDT Allen Ness MD CHEMISTRY ORDERABLES Final Resu lt Performing Organization Address [facility] Phone Number INTERFACE SYSTEM Refer to clinic/hospital department * PHOSPHORUS (06/05/2005 3:20 AM CDT) PHOSPHORUS 3.7 2.5 - 4.5 mg/dL INTERFACE SYSTEM 06/05/2005 3:20 AM CDT Allen Ness MD CHEMISTRY ORDERABLES Final Resu lt Performing Organization Address [place]/[facility] de Phone Number INTERFACE SYSTEM Refer to clinic/hospital department * MAGNESIUM LEVEL (06/05/2005 3:20 AM CDT) MAGNESIUM 1.8 1.5 - 2.5 mg/dL INTERFACE SYSTEM 06/05/2005 3:20 AM CDT Allen Ness MD CHEMISTRY ORDERABLES Final Resu Performing Organization Address [facility] Phone Number INTERFACE SYSTEM Refer to clinic/hospital department * (ABNORMAL) BASIC METABOLIC PANEL (06/05/2005 3:20 AM CDT) GLUCOSE 106 65 - 109 mg/dL INTERFACE SYSTEM CREATININE 0.9 0.5 - 1.3 mg/dL INTERFACE SYSTEM CALCIUM 8.4(L) 8.6 - 10.2 mg/dL INTERFACE SYSTEM BUN 13 6 - 20 mg/dL INTERFACE SYSTEM SODIUM 135 135 - 145 mmol/L INTERFACE SYSTEM POTASSIUM 4.3 3.5 - 4.9 mmol/L INTERFACE SYSTEM CHLORIDE 99 96 - 108 mmol/L INTERFACE SYSTEM CO2 31(H) 22 - 30 mmol/L INTERFACE SYSTEM 06/05/2005 3:20 AM CDT Allen Ness MD CHEMISTRY ORDERABLES Final [facility] Performing Organization Address [facility] Phone Number INTERFACE SYSTEM Refer to clinic/hospital department * (ABNORMAL) URINALYSIS (06/04/2005 4:05 AM CDT) COLOR UA Yellow INTERFACE SYSTEM CLARITY UA Clear Clear INTERFACE SYSTEM SPECIFIC GRAVITY UA 1.020 1.001 - 1.035 INTERFACE SYSTEM PH UA 6.5 5.0 - 8.0 INTERFACE SYSTEM LEUKOCYTE ESTERASE UA Negative Negative INTERFACE SYSTEM NITRITE UA Negative Negative INTERFACE SYSTEM PROTEIN UA Trace(A) Negative INTERFACE SYSTEM GLUCOSE UA Negative Negative INTERFACE SYSTEM KETONES UA Negative Negative INTERFACE SYSTEM UROBILINOGEN UA 2(H) <=1 mg/dL INTE RFACE SYSTEM BILIRUBIN UA Negative Negative INTERFA CE SYSTEM BLOOD UA Negative Negative INTERFACE SYSTEM WBC UA 10(H) 0 - 3 /HPF INTERFACE SYSTEM RBC UA 1 0 - 3 /HPF INTERFACE SYSTEM BACTERIA UA 1+(A) None Seen /HPF INTERFACE SYSTEM EPITHELIAL CELLS, URINE 2-5 /HPF INTERFACE SYSTEM 06/04/2005 4:05 AM CDT Rasheed Davies MD URINE ORDERABLES Final Result Performing Organization Address [facility] de Phone Number INTERFACE SYSTEM Refer to clinic/hospital department * (ABNORMAL) CBC WITH DIFFERENTIAL (06/04/2005 1:10 AM CDT) NEUTROPHILS 64 45 - 70 % INTERFAC E SYSTEM LYMPHOCYTES 18 16 - 45 % INTERFAC E SYSTEM MONOCYTES 16(H) 3 - 13 % INTERFACE SYSTEM EOSINOPHILS 2 0 - 7 % INTERFAC E SYSTEM BASOPHILS 0 0 - 2 % INTERFACE SYSTEM NEUTROPHIL ABSOLUTE 4.98 1.90 - 7.00 K/uL INTERFACE SYSTEM LYMPHOCYTE ABSOLUTE 1.38 0.70 - 4.50 K/uL INTERFACE SYSTEM MONOCYTE ABSOLUTE 1.26 0.10 - 1.30 K/uL INTERFACE SYSTEM EOSINOPHIL ABSOLUTE 0.13 0.00 - 0.70 K/uL INTERFACE SYSTEM BASOPHILS ABSOLUTE 0.02 0.00 - 0.20 K/uL INTERFACE SYSTEM 06/04/2005 1:10 AM CDT Rasheed Davies MD HEMATOLOGY ORDERABLES Final R esult Performing Organization Address [facility] Phone Number INTERFACE SYSTEM Refer to clinic/hospital department * (ABNORMAL) CBC WITH DIFFERENTIAL (06/04/2005 1:10 AM CDT) WBC 7.8 4.0 - 9.8 K/uL INTERFACE SYSTEM RBC 3.90(L) 4.50 - 5.40 M/uL INTERFACE SYSTEM HEMOGLOBIN 12.4(L) 13.6 - 16.5 g/dL INTERFACE SYSTEM HEMATOCRIT 35.7(L) 40.0 - 48.0 % INTERFACE SYSTEM MCV 91.5 82.0 - 99.0 fL INTERFACE SYSTEM MCH 31.8 27.2 - 32.6 pg INTERFACE SYSTEM MCHC 34.7 31.5 - 35.5 % INTERFACE SYSTEM RDW 13.1 11.5 - 14.5 % INTERFACE SYSTEM RDW-STDEV 44.0 37.1 - 48.7 fL INTERFACE SYSTEM PLATELETS 144 140 - 350 K/uL INTERFACE SYSTEM MPV 9.8 9.3 - 12.4 fL INTERFACE SYSTEM 06/04/2005 1:10 AM CDT us Rasheed Davies MD HEMATOLOGY ORDERABLES Final R esult Performing Organization Address [facility] Phone Number INTERFACE SYSTEM Refer to clinic/hospital department * (ABNORMAL) BASIC METABOLIC PANEL (06/04/2005 1:10 AM CDT) GLUCOSE 128(H) 65 - 109 mg/dL INTERFACE SYSTEM CREATININE 0.9 0.5 - 1.3 mg/dL INTERFACE SYSTEM CALCIUM 8.1(L) 8.6 - 10.2 mg/dL INTERFACE SYSTEM BUN 12 6 - 20 mg/dL INTERFACE SYSTEM SODIUM 136 135 - 145 mmol/L INTERFACE SYSTEM POTASSIUM 3.9 3.5 - 4.9 mmol/L INTERFACE SYSTEM CHLORIDE 100 96 - 108 mmol/L INTERFACE SYSTEM CO2 28 22 - 30 mmol/L INTERFACE SYSTEM 06/04/2005 1:10 AM CDT us Rasheed Davies MD CHEMISTRY ORDERABLES Final Re sult Performing Organization Address [facility] Phone Number INTERFACE SYSTEM Refer to clinic/hospital department * PHOSPHORUS (06/04/2005 1:10 AM CDT) PHOSPHORUS 2.8 2.5 - 4.5 mg/dL INTERFACE SYSTEM 06/04/2005 1:10 AM CDT us Rasheed Davies MD CHEMISTRY ORDERABLES Final Re sult Performing Organization Address [facility] Phone Number INTERFACE SYSTEM Refer to clinic/hospital department * MAGNESIUM LEVEL (06/04/2005 1:10 AM CDT) MAGNESIUM 1.6 1.5 - 2.5 mg/dL INTERFACE SYSTEM 06/04/2005 1:10 AM CDT us Rasheed Davies MD CHEMISTRY ORDERABLES Final Re sult Performing Organization Address [facility] Phone Number INTERFACE SYSTEM Refer to clinic/hospital department * (ABNORMAL) CALCIUM IONIZED (06/04/2005 1:09 AM CDT) CALCIUM IONIZED 4.48(L) 4.76 - 5.16 mg/dL INTERFACE SYSTEM 06/04/2005 1:09 AM CDT us Rasheed Davies MD CHEMISTRY ORDERABLES Final Re sult Performing Organization Address [facility] de Phone Number INTERFACE SYSTEM Refer to clinic/hospital department * (ABNORMAL) CBC WITH DIFFERENTIAL (06/03/2005 4:45 AM CDT) NEUTROPHILS 56 45 - 70 % INTERFAC E SYSTEM LYMPHOCYTES 28 16 - 45 % INTERFAC E SYSTEM MONOCYTES 14(H) 3 - 13 % INTERFACE SYSTEM EOSINOPHILS 2 0 - 7 % INTERFAC E SYSTEM BASOPHILS 0 0 - 2 % INTERFACE SYSTEM NEUTROPHIL ABSOLUTE 5.00 1.90 - 7.00 K/uL INTERFACE SYSTEM LYMPHOCYTE ABSOLUTE 2.49 0.70 - 4.50 K/uL INTERFACE SYSTEM MONOCYTE ABSOLUTE 1.25 0.10 - 1.30 K/uL INTERFACE SYSTEM EOSINOPHIL ABSOLUTE 0.18 0.00 - 0.70 K/uL INTERFACE SYSTEM BASOPHILS ABSOLUTE 0.03 0.00 - 0.20 K/uL INTERFACE SYSTEM 06/03/2005 4:45 AM CDT us Allen Ness MD HEMATOLOGY ORDERABLES Final Res ult Performing Organization Address [facility] de Phone Number INTERFACE SYSTEM Refer to clinic/hospital department * (ABNORMAL) CBC WITH DIFFERENTIAL (06/03/2005 4:45 AM CDT) WBC 9.0 4.0 - 9.8 K/uL INTERFACE SYSTEM RBC 3.93(L) 4.50 - 5.40 M/uL INTERFACE SYSTEM HEMOGLOBIN 12.3(L) 13.6 - 16.5 g/dL INTERFACE SYSTEM HEMATOCRIT 36.9(L) 40.0 - 48.0 % INTERFACE SYSTEM MCV 93.9 82.0 - 99.0 fL INTERFACE SYSTEM MCH 31.3 27.2 - 32.6 pg INTERFACE SYSTEM MCHC 33.3 31.5 - 35.5 % INTERFACE SYSTEM RDW 13.5 11.5 - 14.5 % INTERFACE SYSTEM RDW-STDEV 46.9 37.1 - 48.7 fL INTERFACE SYSTEM PLATELETS 150 140 - 350 K/uL INTERFACE SYSTEM MPV 9.6 9.3 - 12.4 fL INTERFACE SYSTEM 06/03/2005 4:45 AM CDT Allen Ness MD HEMATOLOGY ORDERABLES Final Res ult Performing Organization Address [facility] Phone Number INTERFACE SYSTEM Refer to clinic/hospital department * (ABNORMAL) TSH (06/03/2005 4:45 AM CDT) TSH 5.50(H) 0.27 - 4.20 uU/mL INTERFACE SYSTEM 06/03/2005 4:45 AM CDT Allen Ness MD CHEMISTRY ORDERABLES Final Resu lt Performing Organization Address [facility] Phone Number INTERFACE SYSTEM Refer to clinic/hospital department * (ABNORMAL) CALCIUM IONIZED (06/03/2005 4:45 AM CDT) CALCIUM IONIZED 4.52(L) 4.76 - 5.16 mg/dL INTERFACE SYSTEM 06/03/2005 4:45 AM CDT Allen Ness MD CHEMISTRY ORDERABLES Final Resu lt Performing Organization Address [facility] Phone Number INTERFACE SYSTEM Refer to clinic/hospital department * TROPONIN (W/REFLEX CKMB/CK) (06/03/2005 4:45 AM CDT) TROPONIN T <0.01 <=0.03 ng/mL INTERFACE SYSTEM TROPONIN T INTERP Negative INTERFACE SYSTEM 06/03/2005 4:45 AM CDT Allen Ness MD CHEMISTRY ORDERABLES Final Resu lt Performing Organization Address [facility] Phone Number INTERFACE SYSTEM Refer to clinic/hospital department * (ABNORMAL) BASIC METABOLIC PANEL (06/03/2005 4:45 AM CDT) GLUCOSE 102 65 - 109 mg/dL INTERFACE SYSTEM CREATININE 0.9 0.5 - 1.3 mg/dL INTERFACE SYSTEM CALCIUM 8.4(L) 8.6 - 10.2 mg/dL INTERFACE SYSTEM BUN 16 6 - 20 mg/dL INTERFACE SYSTEM SODIUM 136 135 - 145 mmol/L INTERFACE SYSTEM POTASSIUM 4.2 3.5 - 4.9 mmol/L INTERFACE SYSTEM CHLORIDE 102 96 - 108 mmol/L INTERFACE SYSTEM CO2 28 22 - 30 mmol/L INTERFACE SYSTEM 06/03/2005 4:45 AM CDT Allen Ness MD CHEMISTRY ORDERABLES Final Resu lt Performing Organization Address [place]/[facility] Phone Number INTERFACE SYSTEM Refer to clinic/hospital department * PHOSPHORUS (06/03/2005 4:00 AM CDT) PHOSPHORUS 3.4 2.5 - 4.5 mg/dL INTERFACE SYSTEM 06/03/2005 4:00 AM CDT Allen Ness MD CHEMISTRY ORDERABLES Final Resu lt Performing Organization Address [place]/[facility] Phone Number INTERFACE SYSTEM Refer to clinic/hospital department * MAGNESIUM LEVEL (06/03/2005 4:00 AM CDT) MAGNESIUM 1.8 1.5 - 2.5 mg/dL INTERFACE SYSTEM 06/03/2005 4:00 AM CDT Allen Ness MD CHEMISTRY ORDERABLES Final Resu lt Performing Organization Address [facility] Co de Phone Number INTERFACE SYSTEM Refer to clinic/hospital department * TROPONIN (W/REFLEX CKMB/CK) (06/02/2005 9:00 PM CDT) TROPONIN T <0.01 <=0.03 ng/mL INTERFACE SYSTEM TROPONIN T INTERP Negative INTERFACE SYSTEM 06/02/2005 9:00 PM CDT us Allen Ness MD CHEMISTRY ORDERABLES Final Resu lt Performing Organization Address [place]/[facility] de Phone Number INTERFACE SYSTEM Refer to clinic/hospital department * TROPONIN (W/REFLEX CKMB/CK) (06/02/2005 2:40 PM CDT) TROPONIN T <0.01 <=0.03 ng/mL INTERFACE SYSTEM TROPONIN T INTERP Negative INTERFACE SYSTEM 06/02/2005 2:40 PM CDT us Allen Ness MD CHEMISTRY ORDERABLES Final Resu lt Performing Organization Address City/[facility] de Phone Number INTERFACE SYSTEM Refer to clinic/hospital department * CBC WITH DIFFERENTIAL (06/02/2005 4:01 AM CDT) Pathologist [facility] NEUTROPHILS 67 45 - 70 % INTERFAC E SYSTEM LYMPHOCYTES 22 16 - 45 % INTERFAC E SYSTEM MONOCYTES 11 3 - 13 % INTERFACE SYSTEM EOSINOPHILS 1 0 - 7 % INTERFAC E SYSTEM BASOPHILS 0 0 - 2 % INTERFACE SYSTEM NEUTROPHIL ABSOLUTE 5.46 1.90 - 7.00 K/uL INTERFACE SYSTEM LYMPHOCYTE ABSOLUTE 1.76 0.70 - 4.50 K/uL INTERFACE SYSTEM MONOCYTE ABSOLUTE 0.88 0.10 - 1.30 K/uL INTERFACE SYSTEM EOSINOPHIL ABSOLUTE 0.09 0.00 - 0.70 K/uL INTERFACE SYSTEM BASOPHILS ABSOLUTE 0.01 0.00 - 0.20 K/uL INTERFACE SYSTEM 06/02/2005 4:01 AM CDT Allen Ness MD HEMATOLOGY ORDERABLES Final Res ult Performing Organization Address City/[facility]/ZIP Co de Phone Number INTERFACE SYSTEM Refer to clinic/hospital department * (ABNORMAL) CBC WITH DIFFERENTIAL (06/02/2005 4:01 AM CDT) WBC 8.2 4.0 - 9.8 K/uL INTERFACE SYSTEM RBC 4.07(L) 4.50 - 5.40 M/uL INTERFACE SYSTEM HEMOGLOBIN 12.9(L) 13.6 - 16.5 g/dL INTERFACE SYSTEM HEMATOCRIT 37.7(L) 40.0 - 48.0 % INTERFACE SYSTEM MCV 92.6 82.0 - 99.0 fL INTERFACE SYSTEM MCH 31.7 27.2 - 32.6 pg INTERFACE SYSTEM MCHC 34.2 31.5 - 35.5 % INTERFACE SYSTEM RDW 13.6 11.5 - 14.5 % INTERFACE SYSTEM RDW-STDEV 46.4 37.1 - 48.7 fL INTERFACE SYSTEM PLATELETS 162 140 - 350 K/uL INTERFACE SYSTEM MPV 9.8 9.3 - 12.4 fL INTERFACE SYSTEM 06/02/2005 4:01 AM CDT Allen Ness MD HEMATOLOGY ORDERABLES Final Res ult Performing Organization Address City/[facility] de Phone Number INTERFACE SYSTEM Refer to clinic/hospital department * (ABNORMAL) CALCIUM IONIZED (06/02/2005 4:01 AM CDT) CALCIUM IONIZED 4.60(L) 4.76 - 5.16 mg/dL INTERFACE SYSTEM 06/02/2005 4:01 AM CDT Rasheed Davies MD CHEMISTRY ORDERABLES Final Re sult Performing Organization Address [facility] de Phone Number INTERFACE SYSTEM Refer to clinic/hospital department * PHOSPHORUS (06/02/2005 4:01 AM CDT) PHOSPHORUS 3.2 2.5 - 4.5 mg/dL INTERFACE SYSTEM 06/02/2005 4:01 AM CDT Rasheed Davies MD CHEMISTRY ORDERABLES Final Re sult Performing Organization Address [facility] de Phone Number INTERFACE SYSTEM Refer to clinic/hospital department * MAGNESIUM LEVEL (06/02/2005 4:01 AM CDT) MAGNESIUM 1.8 1.5 - 2.5 mg/dL INTERFACE SYSTEM 06/02/2005 4:01 AM CDT Rasheed Davies MD CHEMISTRY ORDERABLES Final Re sult Performing Organization Address City/[facility] de Phone Number INTERFACE SYSTEM Refer to clinic/hospital department * TROPONIN (W/REFLEX CKMB/CK) (06/02/2005 4:01 AM CDT) TROPONIN T <0.01 <=0.03 ng/mL INTERFACE SYSTEM TROPONIN T INTERP Negative INTERFACE SYSTEM 06/02/2005 4:01 AM CDT Allen Ness MD CHEMISTRY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
--- OUTSIDE RECORDS SUMMARY | 2024-10-21 09:34 | XMS_ITS | Encounter Summary ---
Author Organization [facility] Address [address] [place] [phone] Care Team Providers Care Supervisor Wire Rope Fabrication Name Role Phone Zohaib Pettit MD Primary Care Provider [phone] Encounter Details Date Type Department Care Team (Late st Contact Info) Description 02/21/2006 Outpatient Historical [facility] [address] [facility] [address] [place] [phone] Rasheed Davies MD [address] 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
--- OUTSIDE RECORDS SUMMARY | 2024-10-21 09:34 | XMS_ITS | Encounter Summary ---
Author Organization [facility] Address [address] [place] [phone] Care Team Providers Care Peoplesoft Analyst Name Role Phone Zohaib Pettit MD Primary Care Provider [phone] Encounter Details Date Type Department Care Team (Late st Contact Info) Description 10/28/2005 Outpatient Historical [facility] [address] [facility] [address] [place] [phone] Rasheed Davies MD [address] 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
--- OUTSIDE RECORDS SUMMARY | 2024-10-21 09:34 | XMS_ITS | Encounter Summary ---
Author Organization [facility] Address [address] [place] [phone] Care Team Providers Care Arc Air Operator Name Role Phone Zohaib Pettit MD Primary Care Provider [phone] Encounter Details Date Type Department Care Team (Late st Contact Info) Description 11/29/2005 Outpatient Historical [facility] [address] [facility] [address] [place] [phone] Rasheed Davies MD [address] 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
--- OUTSIDE RECORDS SUMMARY | 2024-10-21 09:34 | XMS_ITS | Encounter Summary ---
Author Organization [facility] Address [address] [place] [address] Care Team Providers Care Life Insurance Sales Agent Name Role Phone Zohaib Pettit MD Primary Care Provider [phone] Encounter Details Date Type Department Care Team (Late st Contact Info) Description 11/16/[address] 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
--- OUTSIDE RECORDS SUMMARY | 2024-10-21 09:34 | XMS_ITS | Encounter Summary ---
Author Organization [facility] Address [address] [place] [phone] Care Team Providers Care Sand Bobber Name Role Phone Zohaib Pettit MD Primary Care Provider [phone] Encounter Details Date Type Department Care Team (Late st Contact Info) Description 07/26/2005 Outpatient Historical [facility] [address] [facility] [address] [place] [phone] Rasheed Davies MD [address] 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
--- OUTSIDE RECORDS SUMMARY | 2024-10-21 09:34 | XMS_ITS | Encounter Summary ---
Author Organization [facility] Address [address] [place] [phone] Care Team Providers Care Sandal Parts Assembler Name Role Phone Zohaib Pettit MD Primary Care Provider [phone] Encounter Details Date Type Department Care Team (Late st Contact Info) Description 11/07/2005 Outpatient Historical [facility] [address] [facility] [address] [place] [phone] Rasheed Davies MD [address] 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
--- OUTSIDE RECORDS SUMMARY | 2024-10-21 09:34 | XMS_ITS | Encounter Summary ---
Author Organization [facility] Address 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 Gender Identity Not on file Sexual Orientation Not on file documented as of this encounter Plan of Treatment Not on file documented as of this encounter Procedures Procedure Name Priority Date/Time Associated Diagnosis Comments HEMOGLOBIN AND HEMATOCRIT Routine 11/07/2005 11:12 AM FEATHER MAKER documented in this encounter Results * HEMOGLOBIN AND HEMATOCRIT (11/07/2005 11:12 AM FEATHER MAKER) HEMOGLOBIN 15.0 13.6 - 16.5 g/dL INTERFACE SYSTEM HEMATOCRIT 43.4 40.0 - 48.0 % INTERFACE SYSTEM 11/07/2005 11:1 2 AM FEATHER MAKER us Giovanni Quezada MD HEMATOLOGY ORDERABLES Final Result INTERFACE SYSTEM Refer to clinic/hospital department documented in this encounter Visit Diagnoses Diagnosis Scar condition and fibrosis of skin- Primary documented in this encounter Care Teams Mail Room Clerk Relationship Specialty Start Date End Date Zohaib Pettit MD PCP - General 08/04/15 documented as of this encounter
--- OUTSIDE RECORDS SUMMARY | 2024-10-21 09:34 | XMS_ITS ---
Author Organization [facility] Address [address] [place] [address] Care Team Providers Care Facial Operator Name Role Phone Los Lam Unavailable [phone] MarcelinaHola gary Unavailable Unavailable Allergies No Known Allergies REASON FOR VISIT Hives follow-up, no interval hives, continues taking Zyrtec without breakthrough, Lip swelling, continues Zyrtec Medications Medication SIG (Take, Route, Frequency, Duration) Notes Start Date End Date Status METOPROLOL 25 mg 1 tab(s) orally once a day Active PREDNISONE 20 mg 1 tab(s) orally once a day, PRN Not-Taking MONTELUKAST 10 mg 1 tab(s) orally once a day Not-Taking LOSARTAN 100 mg 1 tab(s) orally once a day for 30 days Active SYNTHROID 200 mcg (0.2 mg) 1 tab(s) orally once a day for 30 day(s) Active Ozempic (1 MG/DOSE) 4 MG/3ML as directed Subcutaneous Act kendall CETIRIZINE 10 mg 1 tab(s) orally Qday Active FAMOTIDINE 20 mg 1 tab(s) orally Qday Active CETIRIZINE 10 mg 1 tab(s) orally Qday Active EPIPEN 2-KUNAL 0.3 mg as directed intramuscularly once for 30 days Active EPIPEN 2-KUNAL 0.3 mg as directed intramuscularly once for 30 days Active METFORMIN 500 mg 1 tab(s) orally 2 ti mes a day Active Social History Tobacco Use: Social History Observation Description Date Details (start date - stop date) Never Smoker NA - NA Smoking Smart Form: Question Answer Notes Are you a: former smoker How long it has been since you last smoked? > 10 years Tobacco Control (Standard) Question Answer Notes Tobacco use: Nonsmoker Vital Signs Blood pressure systolic 119 mm Hg 01/29/20 24 Blood pressure diastolic 75 mm Hg 024 Respiratory Rate 18 /min 01/29/2024 Height 72 in 01/29/2024 Weight 283.2 lbs 01/29/2024 BMI 38.4 kg/m2 01/29/2024 Oximetry 99 % 01/29/2024 Encounters Encounter Location Date Provider Diagnosis [facility] [address] [place] [address] 01/29/2024 Los Greff Rash and other nonspecific skin eruption R21 ; Idiopathic urticaria L50.1 ; Angioneurotic edema, subsequent encounter T78.3XXD and Essential (primary) hypertension I10 Assessments Encounter Date Diagnosis (ICD Code) Assessment Notes Treatment Notes Treatment Clinical Notes Section Notes 01/29/2024 Rash and other nonspecific skin eruption (ICD-10 - R21) Rash concerning for hives in the setting of unknown exposure with associated lip swelling. Started early April 2021 > 6 weeks. Comes and goes, itchy, erythematous and rasised patches. Resolves with prednisone and mildly reponsive to low-dose antihistamine therapy. Pictures c/w idopathic urticaria.Current ly only taking Zyrtec daily. No interval hives. Consider trial off Zyrtec. Restart Zyrtec to BID if further breakthrough occurs. Follow-up in 1 year for E&M 01/29/2024 Idiopathic urticaria (ICD-10 - L50.1) History and [...] for triggers Plan to treat as above 01/29/2024 Angioneurotic edema, subsequent encounter (ICD-10 - T78.3XXD) Lip swelling previously in the setting of rash, likely exacerbated by Lisinopril, ibuprophen and ASA use. plan to continue as above. Given likely idiopathic nature of his swelling. I would recommend having AIE on hand in case of return of his swelling Normal C4 and tryptase levels. 01/29/2024 Essential (primary) hypertension (ICD-10 - I10) Previosuly elevated BP in the setting of known hypertension without signs or symptoms concerning for urgency or emergency. Continue to monitor per PCP. Avoid all LIZBETH inhibitors and ARBs, as they likely exacerbated lip angioedema and this is a common s/e 01/29/2024 Other Plan Of Treatment Medication Medication Name Sig Start Date Stop Date Notes METOPROLOL 25 mg 1 tab(s) orally once a day CETIRIZINE 10 mg 1 tab(s) orally Qday FAMOTIDINE 20 mg 1 tab(s) orally Qday EPIPEN 2-KUNAL 0.3 mg as directed intramus cularly once for 30 days METFORMIN 500 mg 1 tab(s) orally 2 times a day Treatment Notes Assessment Notes Rash and other nonspecific skin eruption Rash concerning for hives in the setting of unknown exposure with associated lip swelling. Started early April 2021 > 6 weeks. Comes and goes, itchy, erythematous and rasised patches. Resolves with prednisone and mildly reponsive to low-dose antihistamine therapy. Pictures c/w idopathic urticaria.Currently only taking Zyrtec daily. No interval hives. Consider trial off Zyrtec. Restart Zyrtec to BID if further breakthrough occurs. Follow-up in 1 year for E&M Idiopathic urticaria History and pictures are c/w [...] C4 and tryptase levels. Essential (primary) hypertension Previos karma elevated BP in the setting of known hypertension without signs or symptoms concerning for urgency or emergency. Continue to monitor per PCP. Avoid all LIZBETH inhibitors and ARBs, as they likely exacerbated lip angioedema and this is a common s/e Next Appt Details Follow Up: 1 Year, Reason: E valuation and Management Provider Name:Los bentley, 01/27/2025 10:45:00 AM, [address] [facility] [address], [address], Progress Notes * Ang HASTINGSDOB: [birth year] (68 yo M)Acc No.[id number]:01/29/2024 Progress Notes Patient: Ang FAN Provider: Irving Lam PA-C :1955 A ge:68 Y S ex:Male Date:01/29/2024 Address:[address] [place] [address], [id number] Subjective: * Chief Complaints: * H gay follow-up, no interval hives, continues taking Zyrtec without breakthroughLip swelling, continues Zyrtec * [...] off-and on. Rash then started (started around Septeb) which would come and go, predominantly on [...] night sweats or other constitutional symptoms encid= [id number] >Ang Hastings 67-year-old male with a history of HTN, DM, hypothyroidism and hives who returns today for interval evaluation and management. He is alone for today's visit. He again [...] PCP and started Zyrtec, Benadryl, and Singulair. Since last visit, only taking daily Zyrtec without breakthrough. No interval swelling eitehr. Today, he reports no fevers, chills, night [...] unremarkable. * Medical History: * Surgical History: k nee replacement 2012Hydrocele 03/17/2022 * Hospitalization/Major Diagno stic Procedure: N o Hospitalization History. * Family History: F ather: , No, diagnosed with Diabetes mellitus type I. M other: alive, Yes, diagnosed with Hypertension. P aternal Grand Father: No. P aternal Grand Mother: No. M aternal Grand Father: No. M aternal Grand Mother: No. S iblings: Yes. C hilen: No. Father passed from kidney failure Mom has hypothyroidism. * Social History: M arital Status What is your marital status? m arried A lcohol Screening Do you ever drink alcoholic beverages? Y es Number of drinks per occasion: 2 Frequency? M onthly S moking Are you a : f ormer smoker S moking Smart Form Are you a: f ormer smoker How long it has been since [...] Age of carpet? 5 Do you have gidn-ux-ncme carpeting? Y es What is the age [...] many dogs? 1 How many birds? 0 T obacco Control (Standard) Tobacco use: N onsmoker * Medications: T akingOzempic (1 MG/DOSE) 4 MG/3ML Solution Pen-injector as directed Subcutaneous METOPROLOL 25 mg tablet, extended release 1 tab(s) orally once a day METFORMIN 500 mg tablet 1 tab(s) orally 2 times a day EPIPEN 2-KUNAL 0.3 mg kit as directed intramuscularly once CETIRIZINE 10 mg tablet 1 tab(s) orally Qday LOSARTAN 100 mg tablet 1 tab(s) orally once a day SYNTHROID 200 mcg (0.2 mg) tablet 1 tab(s) orally once a day Taking Ozempic (1 MG/DOSE) 4 MG/3ML Solution Pen-injector as directed Subcutaneous Taking METOPROLOL 25 mg tablet, extended release 1 tab(s) orally once a day Taking METFORMIN 500 mg tablet 1 tab(s) orally 2 times a day Taking EPIPEN 2-KUNAL 0.3 mg kit as directed intramuscularly once Taking CETIRIZINE 10 mg tablet 1 tab(s) orally Qday Taking LOSARTAN 100 mg tablet 1 tab(s) orally once a day Taking SYNTHROID 200 mcg (0.2 mg) tablet 1 tab(s) orally once a day Not-Taking/PRNFAMOTIDINE 20 mg tablet 1 tab(s) orally Qday MONTELUKAST 10 mg tablet 1 tab(s) orally once a day PREDNISONE 20 mg tablet 1 tab(s) orally once a day, PRN Medication List reviewed and reconciled with the patientNot-Taking/PRN FAMOTIDINE 20 mg tablet 1 tab(s) orally Qday Not-Taking/PRN MONTELUKAST 10 mg tablet 1 tab(s) orally once a day Not-Taking/PRN PREDNISONE 20 mg tablet 1 tab(s) orally once a day, PRN Medication List reviewed and reconciled with the patient * Allergies: N .K.D.A.no[Allergies Verified] Objective: * Vitals: B P:119/75mm Hg, HR:74/min, RR:18/min, Pulse Oximetry:99%, CU-Q2oL: 24, UAS7: 0, Ht: 72 in, Wt: 283.2 lbs, BMI:38.4Index. * Examination: G eneral examination: General appearance: [...] cyanosis, no edema. Genitalia: n ot performed. Assessment: * Assessment: 1. R yamilet and other nonspecific skin eruption - R21 (Primary) 2 . I diopathic urticaria - L50.1 3 . A ngioneurotic edema, subsequent encounter - T78.3XXD 4 . E ssential (primary) hypertension - I10 Plan: * Treatment: 2. I diopathic urticaria Hold CETIRIZINE tablet, 10 mg, 1 tab(s), orally, Qday; H old FAMOTIDINE tablet, 20 mg, 1 tab(s), orally, Qday. [...] 3. A ngioneurotic edema, subsequent encounter Continue EPIPEN 2-KUNAL kit, 0.3 mg, as directed, intramuscularly, once, [...] levels. 4. E ssential (primary) hypertension Continue METOPROLOL tablet, extended release, 25 mg, 1 tab(s), orally, once a day. Notes: Previosuly elevated BP in the setting of known hypertension without signs or symptoms concerning for urgency or emergency. Continue to monitor per PCP. Avoid all LIZBETH inhibitors and ARBs, as they likely exacerbated lip angioedema and this is a common s/e 5. O thers Continue METFORMIN tablet, 500 mg, 1 tab(s), orally, 2 times a day. * Procedure Codes: G 8427 DOC MEDS VERIFIED W/PT [place] [id number] PT-FOCUSED HLTH RISK ASSMT * Preventive Medicine: Counseling: M edication instruction: W atc for side effects of prescribed medications. E [...] Above Normal BMI Follow-up W eight monitoring * Follow Up: 1 Year (Reason: Evaluation and Management) * Billing Information: * Visit Code: 52803 Office Visit, Est Pt., Level 4. Modifiers: 25 * Procedure Codes: G8427 DOC MEDS VERIFIED W/[place]. [address] PT-FOCUSED HLTH RISK ASSMT. * Sign off status: Completed true * Provider: Irving Lam PA-C Date: 0 01/29/2024 Generated for Printi ng/Famyleneg/eTransmitting on: 0 10/21/2024 09:33 AM CDT History and Physical Notes * HPI (History of Present Illness) Category Sub-Category Detail Notes Category Not es *Introduction I had the pleasure o f seeing Ang Hastings 67-year-old male with a history of HTN, DM, hypothyroidism and hives who returns today for interval evaluation and management. He is alone for today's visit. He again [...] PCP and started Zyrtec, Benadryl, and Singulair. Since last visit, only taking daily Zyrtec without breakthrough. No interval swelling eitehr. Today, he reports no fevers, chills, night [...]
--- OUTSIDE RECORDS SUMMARY | 2024-10-21 09:34 | XMS_ITS | Encounter Summary ---
Author Organization [facility] Address [address] [place] [address] Care Team Providers Care Developer Analyst Name Role Phone Zohaib Pettit MD Primary Care Provider [phone] Encounter Details Date Type Department Care Team (Late st Contact Info) Description 08/05/2005 Outpatient Historical [facility] [address] [facility] [address] [place] [phone] Rasheed Davies MD [address] [facility] [address] [place] [address] Social History Tobacco Use Types Packs/Day Years Used Date Smoking Tobacco: Never Assessed Sex and Gender Information Value Date Recorded Sex Assigned at Not on file Legal Sex Male 2:43 AM ADMISSIONS GATE ATTENDANT Gender Identity Not on file Sexual Orientation Not on file documented as of this encounter Plan of Treatment Not on file documented as of this encounter Visit Diagnoses Not on filedocumented in this encounter Care Teams Developer Analyst Relationship Specialty Start Date End Date Zohaib Pettit MD PCP - General 08/04/15 documented as of this encounter
--- OUTSIDE RECORDS SUMMARY | 2024-10-21 09:34 | XMS_ITS | Encounter Summary ---
Author Organization [facility] Address [address] [place] [phone] Care Team Providers Care Slip Filler Name Role Phone Zohaib Pettit MD Primary Care Provider Encounter Details Date Type Department Care Team (Late st Contact Info) Description 12/27/2005 Outpatient Historical [facility] [address] [facility] [address] [place] [phone] Rasheed Davies MD [address] [facility] [address] [place] [address] Social History Tobacco Use Types Packs/Day Years Used Date Smoking Tobacco: Never Assessed Sex and Gender Information Value Date Recorded Sex Assigned at Not on file Legal Sex Male 2:43 AM BIN OPERATOR Gender Identity Not on file Sexual Orientation Not on file documented as of this encounter Plan of Treatment Not on file documented as of this encounter Visit Diagnoses Not on filedocumented in this encounter Care Teams Slip Filler Relationship Specialty Start Date End Date Zohaib Pettit MD PCP - General 08/04/15 documented as of this encounter
--- OUTSIDE RECORDS SUMMARY | 2024-10-21 09:34 | XMS_ITS | Encounter Summary ---
Author Organization [facility] Address [address] [place] [address] Care Team Providers Care Sales Superintendent Name Role Phone Zohaib Pettit MD Primary Care Provider Encounter Details Date Type Department Care Team (Late st Contact Info) Description 08/26/2005 Outpatient Historical [facility] [address] [facility] [address] [place] [phone] Rasheed Davies MD [address] [facility] [address] [place] [address] Social History Tobacco Use Types Packs/Day Years Used Date Smoking Tobacco: Never Assessed Sex and Gender Information Value Date Recorded Sex Assigned at Not on file Legal Sex Male 2:43 AM WARDROBE ATTENDANT Gender Identity Not on file Sexual Orientation Not on file documented as of this encounter Plan of Treatment Not on file documented as of this encounter Visit Diagnoses Not on filedocumented in this encounter Care Teams Sales Superintendent Relationship Specialty Start Date End Date Zohaib Pettit MD PCP - General 08/04/15 documented as of this encounter
[2024-10-21 09:38] LABS: Hemoglobin A1C 5.9 % (<5.7)
[2024-10-21 09:41] LABS: MALB Creatinine Ratio 9.6 mg/g (0-30); Microalbumin Urine Random < 13.0 mg/L
[2024-10-21 10:33] LABS: Alanine Aminotransferase 29 U/L (16-63); Albumin Level 4.1 g/dL (3.4-5.0); Alkaline Phosphatase 48 U/L (46-116); Anion Gap 6 mmol/L (4-12); Aspartate Amino Transferase 19 U/L (15-37); Bilirubin,Total 0.4 mg/dL (0.00-1.00); Blood Urea Nitrogen 24 mg/dL (7-18); Calcium 9.3 mg/dL (8.5-10.1); Carbon Dioxide 32 mmol/L (21-32); Chloride 107 mmol/L (98-108); Cholesterol 213 mg/dL (0-200); Estimated Glomerular Filt Rate 60; Glucose 114 mg/dL (70-99); HDL Direct 54 mg/dL (40-60); LDL Cholesterol Calculated 143 mg/dL (<130); Osmolality Calculated 305 mOsm/kg (285-295); Potassium 4.6 mmol/L (3.5-5.1); Prostate Specific Antigen < 0.1 ng/mL (< OR = 4.0); Sodium 145 mmol/L (136-145); Thyroid Stimulating Hormone 14.43 uIU/mL (0.36-3.74); Total Protein 7.1 g/dL (6.4-8.2); Triglycerides 81 mg/dL (0-150)
== END 2024-10-21 08:48 | disposition home or self-care (01) ==
LOC: CHSLAB 08:49
PROVIDERS: PCP Internal Medicine; Visit Provider Internal Medicine
DX: E11.9 Type 2 diabetes mellitus without complications (principal); I10 Essential (primary) hypertension; E03.9 Hypothyroidism, unspecified; Z12.5 Encounter for screening for malignant neoplasm of prostate
CPT/HCPCS: 36415; 80053; 80061; 81003; 82043; 83036; 84153; 84443; 85025; G0103

== ENCOUNTER 2025-04-10 08:15 | Outpatient (CLI) | payer MEDICARE, SELFPAY ==
--- OUTSIDE RECORDS SUMMARY | 2024-01-27 16:30 | XMS_ITS ---
Author Organization [facility] [employer] [place] ([address]) Address [address] [place] [address] Care Team Providers Care Dressmaker Helper Name Role Phone Los Lam Unavailable [phone] Hola Hewitt Unavailable Unavailable [employer], Provider Unavailable Unavailab le REASON FOR VISIT [facility] Encounter Medications Medication SIG (Take, Route, Frequency, Duration) Notes Start Date End Date Status Metoprolol Succinate ER 25 MG 1 tab(s) orally once a day A ctive metFORMIN HCl 500 MG 1 tab(s) orally 2 t imes a day Active Montelukast Sodium 10 MG 1 tab(s) orally once a day N ot-Taking Synthroid 200 MCG 1 tab(s) orally once a day; Duration: 30 day(s) Active predniSONE 20 MG 1 tab(s) orally once a day, PRN Not-Taking EpiPen 2-Eduardo 0.3 MG/0.3ML as directed intramuscularly once; Duration: 30 days Active Losartan Potassium 100 MG 1 tab(s) orally once a day; Duration: 30 days Active Famotidine 20 MG 1 tab(s) orally Qday Active Cetirizine HCl 10 MG 1 tab(s) orally Qday Active Social History Sex Assigned At : Social History Observation Description Sex Assigned At Male Encounters Encounter Location Date Provider Diagnosis JAKOB Nelson [address] [place] [id number] 01/27/2024 Provider [facility] Idiopathic urticaria L50.1 ; Angioneurotic edema, subsequent encounter T78.3XXD and Essential (primary) hypertension I10 Assessments Encounter Date Diagnosis (ICD Code) Assessment Notes Treatment Notes Treatment Clinical Notes Section Notes 01/27/2024 Idiopathic urticaria (ICD-10 - L50.1) 01/27/2024 Angioneurotic edema, subsequent encounter (ICD-10 - T78.3XXD) 01/27/2024 Essential (primary) hypertension (ICD-10 - I10) Plan Of Treatment Medication Medication Name Sig Start Date Stop Date Notes Metoprolol Succinate ER 25 MG 1 tab(s) orally once a day metFORMIN HCl 500 MG 1 tab(s) orally 2 times a day EpiPen 2-Eduardo 0.3 MG/0.3ML as directed in tramuscularly once; Duration: 30 days Famotidine 20 MG 1 tab(s) orally Qday Cetirizine HCl 10 MG 1 tab(s) orally Qday Next Appt Details Provider Name:Gisele traore, 01/27/2026 12:30:00 PM, [address] [facility], [address] [place] [address], [id number], Progress Notes * Ang HASTINGSDOB: [birth year] (69 yo M)Acc No.[id number]:01/27/2024 Patient: Ang FAN Provider: Juan Song :1955 A ge:68 Y S ex:Male Date:01/27/2024 Address:[address] [place], [place] [id number] Subjective: * Chief Complaints: * 1 . [facility] En[facility]. * Medical History: * Medications: T aking Losartan Potassium 100 MG Tablet 1 tab(s) orally once a day , Taking Synthroid 200 MCG Tablet 1 tab(s) orally once a day , Not-Taking/PRN Montelukast Sodium 10 MG Tablet 1 tab(s) orally once a day , Not-Taking/PRN predniSONE 20 MG Tablet 1 tab(s) orally once a day, PRN Objective: * Vitals: Assessment: * Assessment: 1. I diopathic urticaria - L50.1 2 . A ngioneurotic edema, subsequent encounter - T78.3XXD 3 . E ssential (primary) hypertension - I10 Plan: * Treatment: 2. A ngioneurotic edema, subsequent encounter Continue EpiPen 2-Eduardo Solution Auto-injector, 0.3 MG/0.3ML, as directed, intramuscularly, once, 30 days, 1, Refills 0. 3. E ssential (primary) hypertension Continue Metoprolol Succinate ER Tablet Extended Release 24 Hour, 25 MG, 1 tab(s), orally, once a day. 4. O thers Continue metFORMIN HCl Tablet, 500 MG, 1 tab(s), orally, 2 times a day. * Billing Information: * Visit Code: * Procedure Codes: * Electronic signature of Gisselle MURRAY-Migration on 04/10/2025 at 08:20 AM CDT Sign off status: Pending * Provider: Juan hamilton Migration Date: 0 01/27/2024 Generated for Daniel knight/Chelly/Stanislav on: 04/10/2025 08:20 AM CDT
--- OUTSIDE RECORDS SUMMARY | 2025-04-10 08:20 | XMS_ITS | Encounter Summary ---
Author Organization [facility] Address [address] [place] [phone] Care Team Providers Care Draw Operator Name Role Phone Zohaib Pettit MD Primary Care Provider [phone] Encounter Details Date Type Department Care Team (Late st Contact Info) Description 07/12/[address] [facility] [address] [facility] [address] [place] [phone] Rasheed Davies MD [address] [facility] [address] [place] [address] Social History Tobacco Use Types Packs/Day Years Used Date Smoking Tobacco: Never Assessed Sex and Gender Information Value Date Recorded Sex Assigned at Not on file Legal Sex Male 2:43 AM TELEPHONE INFORMATION CLERK Gender Identity Not on file Sexual Orientation Not on file documented as of this encounter Plan of Treatment Not on file documented as of this encounter Visit Diagnoses Not on filedocumented in this encounter Care Teams Draw Operator Relationship Specialty Start Date End Date Zohaib Pettit MD PCP - General 08/04/15 documented as of this encounter
--- OUTSIDE RECORDS SUMMARY | 2025-04-10 08:20 | XMS_ITS | Encounter Summary ---
Author Organization [facility] Address [address] [place] [address] Care Team Providers Care Sliver Former Name Role Phone Zohaib Pettit MD Primary Care Provider [phone] Encounter Details Date Type Department Care Team (Late st Contact Info) Description 06/06/2005 Outpatient Historical [facility] [address] [facility] [address] [place] [phone] Allen Ness MD [address] [facility] [address] [place] [address] Social History Tobacco Use Types Packs/Day Years Used Date Smoking Tobacco: Never Assessed Sex and Gender Information Value Date Recorded Sex Assigned at Not on file Legal Sex Male 2:43 AM NETWORK COORDINATOR Gender Identity Not on file Sexual Orientation Not on file documented as of this encounter Plan of Treatment Not on file documented as of this encounter Visit Diagnoses Not on filedocumented in this encounter Care Teams Sliver Former Relationship Specialty Start Date End Date Zohaib Pettit MD PCP - General 08/04/15 documented as of this encounter
--- OUTSIDE RECORDS SUMMARY | 2025-04-10 08:20 | XMS_ITS | Encounter Summary ---
Author Organization [facility] Address [address] [place] [phone] Care Team Providers Care Implementation Specialist Name Role Phone Zohaib Pettit MD Primary Care Provider [phone] Encounter Details Date Type Department Care Team (Late st Contact Info) Description 07/04/2005 Outpatient Historical [facility] [address] [facility] [address] [place] [phone] Rasheed Davies MD [address] [facility] [address] [place] [address] Social History Tobacco Use Types Packs/Day Years Used Date Smoking Tobacco: Never Assessed Sex and Gender Information Value Date Recorded Sex Assigned at Not on file Legal Sex Male 2:[address] BAILIFF Gender Identity Not on file Sexual Orientation Not on file documented as of this encounter Plan of Treatment Not on file documented as of this encounter Visit Diagnoses Not on filedocumented in this encounter Care Teams Implementation Specialist Relationship Specialty Start Date End Date Zohaib Pettit MD PCP - General 08/04/15 documented as of this encounter
--- OUTSIDE RECORDS SUMMARY | 2025-04-10 08:20 | XMS_ITS | Encounter Summary ---
Author Organization [facility] Address [address] [place] [address] Care Team Providers Care Visual Educator Name Role Phone Zohaib Pettit MD Primary Care Provider [phone] Encounter Details Date Type Department Care Team (Late st Contact Info) Description 06/29/2005 Outpatient Historical [facility] [address] [facility] [address] [phone] Giovanni Quezada MD [address] [facility] [address] [place] [address] Social History Tobacco Use Types Packs/Day Years Used Date Smoking Tobacco: Never Assessed Sex and Gender Information Value Date Recorded Sex Assigned at Not on file Legal Sex Male 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
--- OUTSIDE RECORDS SUMMARY | 2025-04-10 08:20 | XMS_ITS | Clinical Summary ---
Author Organization [facility] Address [address] [place] [address] Care Team Providers Care Dovetailer Name Role Phone Hola Hewitt MD Primary Care Provider [phone] Allergies Active Allergy Reactions Criticality Noted Date Comments Aspirin Rash Medium 06/07/2022 Empagliflozin Rash Medium 05/18/2022 Lisinopril Hives,Rash Medium 05/18/2022 Hchrnlc-Mwy-Trz Reductase Inhibitors Joint pain Low 06/07/2022 Medications acetaminophen (TYLENOL) 325 mg tablet Take 1 tablet (325 mg total) by mouth every 4 (four) hours as needed Active metoprolol XL (TOPROL-XL) 25 mg extended release tablet TAKE 1 TABLET BY MOUTH ONCE DAILY AT NIGHT AT BEDTIME 03/14/2022 Active losartan (COZAAR) 100 mg tablet Take 1 tablet (100 mg total) by mouth daily 90 tablet 3 06/10/2024 Active levothyroxine (SYNTHROID) 150 mcg tablet Take 1 tablet (150 mcg total) by mouth daily 05/06/2024 Active Ozempic 1 mg/dose (4 mg/3 mL) pen injector injection Inject 1 mg under the skin 12/29/2024 Active Active Problems Problem Noted Date Diagnosed Date Mixed hyperlipidemia 07/26/2024 Statin myopathy 09/20/2022 LVH (left ventricular hypertrophy) 07/19/2022 Left ventricular outflow tract obstruction 07/19 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 (LIZBETH-I) 02/23/2021 Mixed diabetic hyperlipidemi a associated with type 2 diabetes mellitus (CMS/HCC) 12/06/2017 Hypotension due to drugs 12/06/2017 Dizziness [...] Thyroid trou ble - (Added by ANDRES Conv) Murmur, cardiac Diabetes mellitus (HCC) Labile hypertension Foot pain Sleep apnea Scrotal mass Hyperlipidemia Pyuria Left leg swelling Mixed conductive and sensori neural hearing loss 1965 Family History Medical History Relation Name Comments COPD Father Annette Diabetes Father Annette Heart failure Father Annette Hypertension Father Annette Kidney disease Father Annette Renal disease ; Stroke Father Annette Thyroid disease Father Annette Arrhythmia Mother Dementia Mother Hypertension Mother Thyroid disease Mother pacemaker Mother Thyroid disease Sister Relation Name Status Comments Father Annette Mother Alive Sister Social History Tobacco Use Types Packs/Day Years Used Date Smoking Tobacco: Former Smokeless Tobacco: Former Tobacco Cessation:Counseling Given: Not Answered Alcohol Use Standard Drinks/Week Comments Yes 0 (1 standard drink = 0.6 oz pur e alcohol) Sex and Gender Information Value Date Recorded Sex Assigned at Not on file Legal Sex Male 12:12 AM PARTS COUNTER CLERK Gender Identity Not on file Sexual Orientation Not on file Obstetrics History Last Filed Vital Signs Vital Sign Reading Time Taken Comments Blood Pressure 138/78 01/02/2025 1:21 PM CDT Pulse 77 01/02/2025 12:55 PM CDT Temperature 37.1 C (98.8 F) 02/23/2021 1:01 PM CDT Respiratory Rate 16 06/07/2023 2:50 PM CDT Oxygen Saturation 95% 01/02/2025 12:55 PM CDT Inhaled Oxygen Concentration - - Weight 134.3 kg (296 lb) 01/02/2025 12:55 PM CDT Height 180.3 cm (5' 11) 01/02/2025 12:55 PM CDT Body Mass Index 41.28 01/02/2025 12:55 PM CDT Plan of Treatment Health Maintenance Due Date Last Done Comments Albumin Creatinine Ratio, Urine 1955 Colon Cancer Screening-Colonoscopy 1955 Depression Screening 1955 Fall Risk Assessment 1955 Hepatitis C Screening 1955 Prostate Cancer Screening-PSA 1955 Dilated Eye Exam 1955 Foot Exam 1955 Hepatitis B Screening 1973 Pneumococcal vaccine 65+ (2 of 2 - PPSV23, PCV20, or PCV21) 11/05/2015 09/10/2015 Zoster Vaccine (2 of 3) 11/05/2015 09/10/2015 Hemoglobin A1C 03/05/2018 09/05/2017 eGFR 09/22/2018 09/22/2017, 09/05/2017 Abdominal Aortic Aneurysm (A AA) Screen 2020 Well Visit 65+ 2020 Influenza Vaccine (#1) 2025 DTaP/Tdap/Td Vaccine (2 - Td or Tdap) 09/10/2025 09/10/2015 Lipid Panel 01/02/2026 01/02/2025, 04/3 , 10/14/2022, Additional history exists Medical Devices Implanted Type Area Drafter Structural Device Identifier Shelf Expiration Date Model / Serial / Lot Porp X2 Ear Procedures Procedure Name Priority Date/Time Associated Diagnosis Comments POCT LIPID PANEL Routine 01/02/2025 1:01 PM CDT Lipid screening EGFR Routine 09/22/2017 3:23 AM PARTS COUNTER CLERK HEMOGLOBIN A1C STAT 09/05/2017 9:57 AM PARTS COUNTER CLERK from Last 3 Months or Most Recently Relevant to Health Maintenance Results * POCT lipid panel (01/02/2025 1:01 PM CDT) Cholesterol, POC 191 <200 MG/DL HDL, POC 46 >=40 mg/dL Triglycerides, POC 135 <=149 mg/dL LDL Cholesterol POC 118 <=129 mg/dL Chol/HDL Ratio, POC 2.6 NONE Non-HDL Cholesterol, POC 145 NONE mg/dL Cholesterol Total, POC 191 30 - 199 mg/dL Capillary blood 01/02/2025 1 :01 PM CDT Lauryn Chavarria NP POINT OF CARE TEST ORDERA BLES Final Result * eGFR (09/22/2017 3:23 AM PARTS COUNTER CLERK) eGFR >60 mL/min/1.7 3 m2 NETO JUSTINW Comment: Interpretive Data Reference Interval Normal >/= 90 mL/min/1.73m2 Mildly decreased* 60 - 89 mL/min/1.73m2 Mildly to moderately decreased 45 - 59 mL/min/1.73m2 Moderately to severely decreased 30 - 44 mL/min/1.73m2 Severely decreased 15 - 29 mL/min/1.73m2 Kidney Failure < 15 mL/min/1.73m2 *Relative to young adult level If -Micronesian multiply value by 1.16. Estimated glomerular filtration [...] 2016. Blood specimen (specimen) 09/22/2017 3:23 AM PARTS COUNTER CLERK 09/22/2017 5:11 AM PARTS COUNTER CLERK Narrative NETO SCHUMACHERCH - 09/22/2017 5:38 AM PARTS COUNTER CLERK Chace Guzman MD LAB BLOOD ORDERABLES Final Result Performing Organization Address [facility] Co de Phone Number [facility] [address] [email or web address] [address] * (ABNORMAL) Hemoglobin A1c (09/05/2017 9:57 AM PARTS COUNTER CLERK) [facility] Signature Hgb A1C 7.3(H) 4.0 - 6.0 % NETO TOTH Comment:Testing performed by : [facility], [place]., [address] Blood specimen (specimen) 09/05/2017 9:57 AM PARTS COUNTER CLERK 09/05/2017 1:38 PM PARTS COUNTER CLERK Narrative NETO TOTH - 09/05/2017 1:53 PM PARTS COUNTER CLERK Chace Guzman MD LAB BLOOD ORDERABLES Final Result Performing Organization Address [facility]/ZIP Co de Phone Number [facility] [id number] [address] [facility] [place] [address] from Last 3 Months or Most Recently Relevant to Health Maintenance Insurance [facility] MEDICARE [facility] MEDICARE [employer] SENIOR SUPPLEMENT MEDICARE AET[employer] SENIOR SUPPLEMENT Care Teams Dovetailer Relationship Specialty Start Date End Date Hola Hewitt MD PCP - General Internal Medicine 09/20/22
--- OUTSIDE RECORDS SUMMARY | 2025-04-10 08:20 | XMS_ITS | Encounter Summary ---
Author Organization [facility] Address [address] [place] [address] Care Team Providers Care Unit Secy Name Role Phone Zohaib Pettit MD Primary Care Provider [phone] Encounter Details Date Type Department Care Team (Latest Contact Info) Description 07/04/2005 Outpatient Historical [facility] Giovanni Quezada MD [address] [address] 3RD DEG BURN FINGER (Primary Dx) Social History Tobacco Use Types Packs/Day Years Used Date Smoking Tobacco: Never Assessed Sex and Gender Information Value Date Recorded Sex Assigned at Not on file Legal Sex Male 2:43 AM MECHANIC HELPER Gender Identity Not on file Sexual Orientation [...] thumb documented in this encounter Care Teams Unit Secy Relationship Specialty Start Date End Date Zohaib Pettit MD PCP - General 08/04/15 documented as of this encounter
--- OUTSIDE RECORDS SUMMARY | 2025-04-10 08:20 | XMS_ITS | Encounter Summary ---
Author Organization [facility] Address [address] [place] [address] Care Team Providers Care Envelope Sealer Name Role Phone Zohaib Pettit MD Primary Care Provider Encounter Details Date Type Department Care Team (Late st Contact Info) Description 06/24/2005 Outpatient Historical [facility] [address] [facility] [address] [place] [phone] Rasheed Davies MD [address] [facility] [address] [place] [address] Social History Tobacco Use Types Packs/Day Years Used Date Smoking Tobacco: Never Assessed Sex and Gender Information Value Date Recorded Sex Assigned at Not on file Legal Sex Male 2:43 AM HONING JOB SETTER Gender Identity Not on file Sexual Orientation Not on file documented as of this encounter Plan of Treatment Not on file documented as of this encounter Visit Diagnoses Not on filedocumented in this encounter Care Teams Envelope Sealer Relationship Specialty Start Date End Date Zohaib Pettit MD PCP - General 08/04/15 documented as of this encounter
--- OUTSIDE RECORDS SUMMARY | 2025-04-10 08:20 | XMS_ITS | Encounter Summary ---
Author Organization [facility] Address [address] [place] [address] Care Team Providers Care Bead Builder Name Role Phone Zohaib Pettit MD Primary Care Provider [phone] Encounter Details Date Type Department Care Team (Late st Contact Info) Description 06/17/[address] [facility] [address] [facility] [address] [place] [address] Rasheed Davies MD [address] [facility] [address] [place] [address] Social History Tobacco Use Types Packs/Day Years Used Date Smoking Tobacco: Never Assessed Sex and Gender Information Value Date Recorded Sex Assigned at Not on file Legal Sex Male 2:43 AM SILK SCREEN CUTTER Gender Identity Not on file Sexual Orientation Not on file documented as of this encounter Plan of Treatment Not on file documented as of this encounter Visit Diagnoses Not on filedocumented in this encounter Care Teams Bead Builder Relationship Specialty Start Date End Date Zohaib Pettit MD PCP - General 08/04/15 documented as of this encounter
--- OUTSIDE RECORDS SUMMARY | 2025-04-10 08:21 | XMS_ITS | Encounter Summary ---
Author Organization [facility] Address [address] [place] [address] Care Team Providers Care Bi Data Modeler Name Role Phone Zohaib Pettit MD Primary Care Provider [phone] Encounter Details Date Type Department Care Team (Late st Contact Info) Description 09/30/2005 Outpatient Historical [facility] [address] [facility] [address] [place] [address] Rasheed Davies MD [address] [facility] [address] [place] [address] Social History Tobacco Use Types Packs/Day Years Used Date Smoking Tobacco: Never Assessed Sex and Gender Information Value Date Recorded Sex Assigned at Not on file Legal Sex Male 2:43 AM FRAUD MANAGER Gender Identity Not on file Sexual Orientation Not on file documented as of this encounter Plan of Treatment Not on file documented as of this encounter Visit Diagnoses Not on filedocumented in this encounter Care Teams Bi Data Modeler Relationship Specialty Start Date End Date Zohaib Pettit MD PCP - General 08/04/15 documented as of this encounter
--- OUTSIDE RECORDS SUMMARY | 2025-04-10 08:21 | XMS_ITS | Encounter Summary ---
Author Organization [facility] Address [address] [place] [address] Care Team Providers Care Network Infrastructure Architect Name Role Phone Zohaib Pettit MD Primary Care Provider [phone] Encounter Details Date Type Department Care Team (Late st Contact Info) Description 12/27/2005 Outpatient Historical [facility] [address] [facility] [address] [place] [address] Rasheed Davies MD [address] [facility] [address] [place] [address] Social History Tobacco Use Types Packs/Day Years Used Date Smoking Tobacco: Never Assessed Sex and Gender Information Value Date Recorded Sex Assigned at Not on file Legal Sex Male 2:43 AM CLINICAL FELLOW Gender Identity Not on file Sexual Orientation Not on file documented as of this encounter Plan of Treatment Not on file documented as of this encounter Visit Diagnoses Not on filedocumented in this encounter Care Teams Network Infrastructure Architect Relationship Specialty Start Date End Date Zohaib Pettit MD PCP - General 08/04/15 documented as of this encounter
--- OUTSIDE RECORDS SUMMARY | 2025-04-10 08:21 | XMS_ITS | Clinical Summary ---
Author Organization [facility] Address [address] [place] [address] Phone Care Team Providers Care Roughener Name Role Phone Hola Hewitt MD Primary Care Provider [phone] Allergies Active Allergy Reactions Criticality Noted Date Comments Aspirin Rash Medium 06/07/2022 Empagliflozin Rash Medium 05/18/2022 Lisinopril Hives,Rash Medium 05/18/2022 Statins Other (see Comments) Low 06/07/2022 Medications simvastatin (ZOCOR) 10 MG Tablet Take [...] Active Additional Information Patient not taking.Reported on 11/30/2024 metFORMIN (GLUCOPHAGE) 500 MG Tablet Take 1 Tab by mouth 2 times daily. 8 Active diclofenac (VOLTAREN) 0.1 % SolutionIndica tions:Corneal irritation of left eye Place 1 Drop in affected eye(s) 4 times daily. 5 mL 8 Active Additional Information Patient not taking.Reported on 11/30/2024 valACYclovir (VALTREX) 1 GM TabletIndicati ons:Cold sore 2 tablets orally twice daily for one day 4 Tab 8 Active Additional Information Patient not taking.Reported on 11/30/2024 losartan (COZAAR) 100 MG Tablet Take by mouth. 4 Active EPINEPHrine (EPIPEN) 0.3 MG/0.3ML Solution Auto-injector 1 injection as needed (0.3 mg/0.3 mL) Active Ozempic, 0.25 or 0.5 MG/DOSE, 2 MG/3ML Solution Pen-injector INJECT 0.25MG SUBCUTANEOUSLY ONCE A WEEK ON THE SAME DAY OF EACH WEEK 3 Active metoprolol Succinate (TOPROL-XL) 25 MG TABLET SR 24 HR Take 1 Tablet by mouth daily. 2 Active levothyroxine (SYNTHROID) 112 MCG Tablet Take by mouth. Active Active Problems Problem Noted Date Diagnosed [...] Sign Reading Time Taken Comments Blood Pressure 132/64 11/30/2024 10:53 AM CDT Pulse 101 11/30/2024 10:53 AM CDT Temperature 36.3 C (97.3 F) 11/30/2024 10:53 AM CDT Respiratory Rate 16 11/30/2024 10:53 AM CDT Oxygen Saturation 97% 11/30/2024 10:53 AM CDT Inhaled Oxygen Concentration - - Weight 126.1 kg (278 lb) 07/19/2018 1:08 PM FINISHING MANAGER Height 180.3 cm (5' 11) 07/19/2018 1:08 PM FINISHING MANAGER Body Mass Index 38.77 07/19/2018 1:08 PM FINISHING MANAGER Plan of Treatment Health Maintenance Due Date Last Done Comments Hepatitis C Virus (HCV) Screening 1955 Cologuard 2000 Colonoscopy 2000 Colorectal Cancer Screening 2000 Immunochemical Fecal Occult Blood 2000 PSA Discussion 2010 Zoster Immunization (2 of 3) 11/05/2015 09/10/2015 Pneumococcal Immunization (5 0+ years) (2 of 2 - PCV20 or PCV21) 09/10/2016 09/10/2015 AAA Screening Ultrasound 2020 SARS-COV-2 Immunization (1 - 2023-25 season) 2024 Influenza Immunization (#1) 2025 Respiratory Syncytial Virus (RSV) Immunization (Adult) (1 - 1-dose 75+ series) 2030 DTaP/Tdap/Td Immunization Discontinued 09/10/2015 Pneumococcal Immunization Combined Discontinued 2015 TdaP Immunization Completed 09/10/2015 Hepatitis B Immunization Aged Out No longer eligible based on patient's age to complete this topic Human Papillomavirus (HPV) Immunization Aged Out No longer eligible b ased on patient's age to complete this topic Meningococcal Immunization (ACWY) Aged Out No longer eligible based on patient's age to complete this topic Rotavirus Immunization Aged Out No lo nger eligible based on patient's age to complete this topic Medical Devices Implanted Type Area Paint Spray Inspector Device Identifier Shelf Expiration Date Model / Serial / Lot Mobile Suture Closed Eyelet Twist In Kno - [id number] Implanted:Qty: 1 on 11/18/2015 by Martínez Bloom MD at [facility] IMPLANT Right: Shoulder [employer] 08/13/2017 [id number] C / / [id number] Mobile Suture Biocomposite Corkscrew Lat - [id number] Implanted:Qty: 1 on 11/18/2015 by Martínez Bloom MD at [facility] IMPLANT Right: Shoulder [employer] 05/13/2017 [id number] / / [id number] Insurance AETNA [facility] MEDICARE [facility] Care Teams Roughener Relationship Specialty Start Date End Date Hola Hewitt MD [address] [place] [address] PCP - General Internal Medicine 10/20/15
--- OUTSIDE RECORDS SUMMARY | 2025-04-10 08:21 | XMS_ITS | Encounter Summary ---
Author Organization [facility] Address [address] [place] [address] Care Team Providers Care Installer Inspector Final Name Role Phone Zohaib Pettit MD Primary Care Provider [phone] Encounter Details Date Type Department Care Team (Late st Contact Info) Description 2005 Outpatient Historical [facility] [address] [facility] [address] [place] [phone] Allen Ness MD [address] [facility] [address] [place] [address] Social History Tobacco Use Types Packs/Day Years Used Date Smoking Tobacco: Never Assessed Sex and Gender Information Value Date Recorded Sex Assigned at Not on file Legal Sex Male 2:43 AM STABLE MANAGER Gender Identity Not on file Sexual Orientation Not on file documented as of this encounter Plan of Treatment Not on file documented as of this encounter Visit Diagnoses Not on filedocumented in this encounter Care Teams Installer Inspector Final Relationship Specialty Start Date End Date Zohaib Pettit MD PCP - General 08/04/15 documented as of this encounter
--- OUTSIDE RECORDS SUMMARY | 2025-04-10 08:21 | XMS_ITS | Encounter Summary ---
Author Organization [facility] Address 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 Gender Identity Not on file Sexual Orientation Not on file documented as of this encounter Plan of Treatment Not on file documented as of this encounter Procedures Procedure Name Priority Date/Time Associated Diagnosis Comments HEMOGLOBIN AND HEMATOCRIT Routine 11/07/2005 11:12 AM BOARD FILLER documented in this encounter Results * HEMOGLOBIN AND HEMATOCRIT (11/07/2005 11:12 AM BOARD FILLER) HEMOGLOBIN 15.0 13.6 - 16.5 g/dL INTERFACE SYSTEM HEMATOCRIT 43.4 40.0 - 48.0 % INTERFACE SYSTEM 11/07/2005 11:1 2 AM BOARD FILLER us Giovanni Quezada MD HEMATOLOGY ORDERABLES Final Result INTERFACE SYSTEM Refer to clinic/hospital department documented in this encounter Visit Diagnoses Diagnosis Scar condition and fibrosis of skin- Primary documented in this encounter Care Teams Restaurant Worker Relationship Specialty Start Date End Date Zohaib Pettit MD PCP - General 08/04/15 documented as of this encounter
--- OUTSIDE RECORDS SUMMARY | 2025-04-10 08:21 | XMS_ITS | Encounter Summary ---
Author Organization [facility] Address [address] [place] [address] Care Team Providers Care Ramp Service Employee Name Role Phone Zohaib Pettit MD Primary Care Provider [phone] Encounter Details Date Type Department Care Team (Late st Contact Info) Description 11/11/2005 Outpatient Historical [facility] [address] [facility] [address] [place] [address] Rasheed Davies MD [address] 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
--- OUTSIDE RECORDS SUMMARY | 2025-04-10 08:21 | XMS_ITS | Encounter Summary ---
Author Organization [facility] Address [address] [place] [address] Care Team Providers Care Courtesy Clerk Name Role Phone Zohaib Pettit MD Primary Care Provider [phone] Encounter Details Date Type Department Care Team (Latest Contact Info) Description 10/28/2005 Outpatient Historical [facility] YESICA Davies, Rasheed Holliday MD [address] [place] [address] Disorder of Bone and Cartilage, Unspecified (Primary Dx) Social History Tobacco Use Types Packs/Day Years Used Date Smoking Tobacco: Never Assessed Sex and Gender Information Value Date Recorded Sex Assigned at Not on file 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
--- OUTSIDE RECORDS SUMMARY | 2025-04-10 08:21 | XMS_ITS | Encounter Summary ---
Author Organization [facility] Address [address] [place] [address] Care Team Providers Care Firefighter Type One Name Role Phone Zohaib Pettit MD Primary Care Provider [phone] Encounter Details Date Type Department Care Team (Late st Contact Info) Description 06/02/2005 Outpatient Historical [facility] [address] [facility] [address] [place] [address] Allen Ness MD [address] 

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
--- OUTSIDE RECORDS SUMMARY | 2025-04-10 08:21 | XMS_ITS | Patient Health Record ---
Author Organization [facility] ([address]) Address [address] [place] [address] Care Team Providers Care Sys Dir Name Role Phone Los Lam Unavailable [phone] Hola Hewitt Unavailable Unavailable Gisele Perez Unavailable [phone] Allergies No Known Allergies Reason For Referral No Information Medications Medication SIG (Take, Route, Frequency, Duration) Notes Start Date End Date Status SYNTHROID 200 mcg (0.2 mg) 1 tab(s) orally once a day; Duration: 30 day(s) Not-Wagner ing EPIPEN 2-EDUARDO 0.3 mg as directed intramuscularly once; Duration: 30 days Not-Taking Levothyroxine Sodium 25 MCG 1 tablet in the morning on an empty stomach Orally Once a day Active MONTELUKAST 10 mg 1 tab(s) orally once a day Not-Taking PREDNISONE 20 mg 1 tab(s) orally once a day, PRN Not-Taking LOSARTAN 100 mg 1 tab(s) orally once a day; Duration: 30 days Not-Takin g EPIPEN 2-EDUARDO 0.3 mg as directed intramuscularly once; Duration: 30 days Active Ozempic (1 MG/DOSE) 4 MG/3ML as directed Subcutaneous Act kendall CETIRIZINE 10 mg 1 tab(s) orally Qday Active CETIRIZINE 10 mg 1 tab(s) orally Qday Not-Taking METOPROLOL 25 mg 1 tab(s) orally once a day Active METFORMIN 500 mg 1 tab(s) orally 2 ti mes a day Active EpiPen 2-Eduardo 0.3 mg as directed intramuscularly once; Duration: 30 days Active FAMOTIDINE 20 mg 1 tab(s) orally Qday Active Social History Tobacco Use: Social History Observation Description Date Details (start date - stop date) Never Smoker NA - NA Sex Assigned At : Social History Observation Description Sex Assigned At Male Smoking Smart Form: Question Answer Notes Are you a: former smoker How long it has been since you last smoked? > 10 years Tobacco Control (Standard) Question Answer Notes Tobacco use: Nonsmoker Problems Problem Type SNOMED Code ICD Code Onset Dates Problem Status W/U Status Risk Notes Problem Idiopathic urticaria (46384926) Idiopathic urticaria (L50.1) Active confirmed Problem Angioneurotic edema (91758941) Angioneurotic edema, initial encounter (T78.3XXA) Active confirmed Problem Eruption of skin (305529270) Rash and other nonspecific skin eruption (R21) Active confirmed Problem Hypothyroidism (19701702) Hypothyroidism, unspecified (E03.9) Active confirmed Problem Type II diabetes mellitus without complication (092197333) Type 2 diabetes mellitus without complications (E11.9) Active confirmed Vital Signs Oximetry 97 % 01/27/2025 Blood pressure diastolic 83 mm Hg 01/27/2025 Height 72 in 01/27/2025 Blood pressure systolic 133 mm Hg 01/27/2025 Weight 295.6 lbs 01/27/2025 BMI 40.09 kg/m2 01/27/2025 Encounters Encounter Location Date Provider Diagnosis [facility] [address] [place] [address] 01/27/2025 Gisele Perez Rash and other nonspecific skin eruption R21 ; Idiopathic urticaria L50.1 ; Angioneurotic edema, subsequent encounter T78.3XXD and Elevated blood-pressure reading, without diagnosis of hypertension R03.0 Assessments Encounter Date Diagnosis (ICD Code) Assessment Notes Treatment Notes Treatment Clinical Notes Section Notes 01/27/2025 Idiopathic urticaria (ICD-10 - L50.1) History and pictures are c/w idiopathic urticaria diagnosis. Exacerbating and contributing factors are likely Jardiance, ASA, and ibuprofen and increased home stress. - Now taking Zyrtec only daily without symptom recurrence. - Continue avoidance of NSAIDs including ASA, opioids, and ETOH. Do not resume Jardiance or Lisinopril. - Continue to journal for triggers. - Highly consider XOLAIR if symptoms recur. Encouraged carrying AIE at all times. - Return as above 01/27/2025 Rash and other nonspecific skin eruption (ICD-10 - R21) History of rash concerning for hives in the setting of unknown exposure with associated lip swelling. Started early April 2021 > 6 weeks. Symptoms previously reported as coming and going, itchy, erythematous and raised patches. Prior pictures (reviewed by EVELYN Lam) were noted to be c/w idiopathic urticaria. - Currently only taking Zyrtec daily. No interval hives. - Restart Pepcid and Singulair if symptoms recur. - Follow-up in 6-12 months for further evaluation and management 01/27/2025 Angioneurotic edema, subsequent encounter (ICD-10 - T78.3XXD) Continue to carry AIE at all times given prior episode of swelling 01/27/2025 Elevated blood-pressure reading, without diagnosis of hypertension (ICD-10 - R03.0) BP elevated today without symptoms of urgency or emergency. Continue serial checks and follow-up with PCP 01/27/2025 Other Plan Of Treatment Next Appt Details Provider Name:Gisele traore, 01/27/2026 12:30:00 PM, [address], [address], [address], Insurance Providers Payer Name Payer Address Payer Phone Subscriber Number Group Number Insured Name Patient Relationship to Insured Coverage Start Date Coverage End Date [employer] (Medicare) Attention Claims [address] [place] [address] [id number] Darling Ang Self - patient is the insured [employer] [address] [address] [place] [address] [phone] [id number] Darling, Ang Self - patient is the insured Medical (General) History Medical History History ICD Code Essential (primary) hypertension I10 Type 2 diabetes mellitus without complic ations E11.9 Hypothyroidism, unspecified E03.9 Rash and other nonspecific skin eruption R21 Idiopathic urticaria L50.1 Angioneurotic edema, initial encounter T 78.3XXA Surgical History Surgery Date(Month/Year) knee replacement 2011 Hydrocele 03/17/2022
--- OUTSIDE RECORDS SUMMARY | 2025-04-10 08:21 | XMS_ITS | Encounter Summary ---
Author Organization [facility] Address [address] [place] [id number] Care Team Providers Care Horticulture Worker Name Role Phone Zohaib Pettit MD Primary Care Provider [phone] Encounter Details Date Type Department Care Team (Late st Contact Info) Description 07/26/2005 Outpatient Historical [facility] [address] [place] [phone] Rasheed Davies MD 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
--- OUTSIDE RECORDS SUMMARY | 2025-04-10 08:21 | XMS_ITS | Clinical Summary ---
Author Organization [facility] Address [address] [place] [address] Care Team Providers Care Expediter Service Order Name Role Phone Hola Hewitt MD Primary Care Provider [phone] Source Comments [facility],non-owned Affiliates and Associated Physician Practices is amultiple site organization consisting of ambulatory clinics and hospital sitesin [place], [place], [place] and [place]. This disclosure is being madepursuant to the Care Everywhere program and may not contain all information available regarding this patient. Last updated 18.[facility] Allergies No known active allergies Medications * Be aware that medications may not be up to date on this document. Alwaysverify current medications with the patient. lisinopril-hyd rochlorothiazi de (PRINZIDE; ZESTORETIC) 20-25 MG tablet Take 1 Tab by mouth once daily 1 5 Active aspirin (ASPIRIN) 81 MG tablet Take 81 mg by mouth once daily. Active simvastatin (ZOCOR) 10 MG tablet TK 1 T PO QPM 11 6 Active acetaminophen (TYLENOL) 325 MG tablet Take 325 mg by mouth every 4 hours as needed for Fever or Pain Maximum allowable Acetaminophen amount = 4 Grams (4000 mg) / 24 hours. Active levothyroxine (SYNTHROID) 125 MCG tablet Take 250 mcg by mouth daily before breakfast Active HYDROcodone-ac etaminophen (NORCO) 5-325 MG tablet Take 1 Tab by mouth every 6 hours as needed for Pain 30 Tab 0 6 Active Additional Information Patient not taking.Reported on 02/09/2016 ciprofloxacin (CIPRO) 500 MG tablet Take 1 Tab by mouth every 12 hours 14 Tab 0 6 Active Additional Information Patient not taking.Reported on 02/23/2016 azelastine (OPTIVAR) 0.05 % ophthalmic solution INSTILL ONE DROP IN OU BID 2 6 Active PATADAY 0.2 % ophthalmic solution INSTILL ONE DROP IN OU D 3 6 Active meloxicam (MOBIC) 15 MG tablet TK 1 T PO D WF UTD 2 6 Active predniSONE (DELTASONE) 10 MG tablet Take 10 mg by mouth once daily 0 6 Active Active Problems No known active problems [...] Hx Hypercholesterolemia Neg Hx Hypertension Neg Hx MS<55(male) Neg Hx MS<65(female) Neg Hx Mental Health Neg Hx Migraine [...] at Not on file 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 Gender Identity Not on file Sexual Orientation [...] 10:21 AM CDT Height 180.3 cm (5' 11) 04/26/2016 10:21 AM CDT Body Mass Index [...] 60-74 years 1-dose series) 2015 COVID-19 VACCINE ( - 2023-2 5 season) 2024 DEPRESSION SCREENING 08/14/2024 INFLUENZA VACCINE (#1) 2025 HEPATITIS B VACCINE Aged Out No longe r eligible based on patient's age to complete this topic HIB VACCINE Aged Out No longer eligi ble based on patient's age to complete this topic HPV VACCINE Aged Out No longer eligi ble based on patient's age to complete this topic MENINGOCOCCAL (Group B) VACC INE SHARED DECISION-MAKING Aged Out No longer eligibl e based on patient's age to complete this topic MENINGOCOCCAL GROUPS A/C/Y/W VACCINE Aged Out No longer eligible b ased on patient's age to complete this topic Insurance [employer] MEDICARE AETNA MEDICARE AETNA MEDICARE AETNA Care Teams Expediter Service Order Relationship Specialty Start Date End Date Hola Hewitt MD [address] [place] [address] PCP - General Internal Medicine 11/10/14
--- OUTSIDE RECORDS SUMMARY | 2025-04-10 08:21 | XMS_ITS | Encounter Summary ---
Author Organization [facility] Address [address] [place] [address] Care Team Providers Care Electrical Contractor Name Role Phone Zohaib Pettit MD Primary Care Provider [phone] Encounter Details Date Type Department Care Team (Late st Contact Info) Description 06/10/2005 Outpatient Historical [facility] [address] [facility] [address] [place] [phone] Allen Ness MD [address] 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
--- OUTSIDE RECORDS SUMMARY | 2025-04-10 08:21 | XMS_ITS | Encounter Summary ---
Author Organization [facility] Address [address] [place] [address] Care Team Providers Care Dx Board Operator Name Role Phone Zohaib Pettit MD Primary Care Provider [phone] Encounter Details Date Type Department Care Team (Late st Contact Info) Description 10/28/[address] [facility] [address] [facility] [address] [place] [phone] Rasheed Davies MD [address] 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
--- OUTSIDE RECORDS SUMMARY | 2025-04-10 08:21 | XMS_ITS | Encounter Summary ---
Author Organization [facility] Address [address] [place] [address] Care Team Providers Care Nematology Teacher Name Role Phone Zohaib Pettit MD Primary Care Provider [phone] Encounter Details Date Type Department Care Team (Late st Contact Info) Description 11/16/2005 Outpatient Historical [facility] [address] [phone] Giovanni Quezada MD [address] [facility] [address] [place] [address] Social History Tobacco Use Types Packs/Day Years Used Date Smoking Tobacco: Never Assessed Sex and Gender Information Value Date Recorded Sex Assigned at Not on file 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
--- OUTSIDE RECORDS SUMMARY | 2025-04-10 08:21 | XMS_ITS | Encounter Summary ---
Author Organization [facility] Address [address] [place] [address] Care Team Providers Care Manager Therapy Name Role Phone Zohaib Pettit MD Primary Care Provider [phone] Encounter Details Date Type Department Care Team (Late st Contact Info) Description 08/05/2005 Outpatient Historical [facility] [address] [facility] [address] [place] [phone] Rasheed Davies MD [address] 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
--- OUTSIDE RECORDS SUMMARY | 2025-04-10 08:21 | XMS_ITS | Encounter Summary ---
Author Organization [facility] Address [address] [place] [phone] Care Team Providers Care Flight Instructor Name Role Phone Zohaib Pettit MD Primary Care Provider Encounter Details Date Type Department Care Team (Late st Contact Info) Description 02/21/2006 Outpatient Historical [facility] [address] [facility] [address] [place] [phone] Rasheed Davies MD [address] 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
--- OUTSIDE RECORDS SUMMARY | 2025-04-10 08:21 | XMS_ITS | Clinical Summary ---
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
--- OUTSIDE RECORDS SUMMARY | 2025-04-10 08:21 | XMS_ITS | Encounter Summary ---
Author Organization [facility] Address [address] [place] [address] Care Team Providers Care Finisher Hot Strip Name Role Phone Zohaib Pettit MD Primary Care Provider [phone] Encounter Details Date Type Department Care Team (Late st Contact Info) Description 08/26/2005 Outpatient Historical [facility] [address] [facility] [address] [place] [phone] Rasheed Davies MD [address] 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
--- OUTSIDE RECORDS SUMMARY | 2025-04-10 08:21 | XMS_ITS | Encounter Summary ---
Author Organization [email or web address] Address [address] [place] [address] Care Team Providers Care Risk Control Officer Name Role Phone Zohaib Pettit MD Primary Care Provider [phone] Encounter Details Date Type Department Care Team (Late st Contact Info) Description 06/02/2005 Outpatient Historical [facility] Support [facility]. (Adt Cardiology-[facility]) [address] 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
--- OUTSIDE RECORDS SUMMARY | 2025-04-10 08:21 | XMS_ITS | Encounter Summary ---
Author Organization [facility] Address [address] [place] [address] Care Team Providers Care Woodworking Machine Offbearer Name Role Phone Zohaib Pettit MD Primary Care Provider [phone] Encounter Details Date Type Department Care Team (Late st Contact Info) Description 11/29/2005 Outpatient Historical [facility] [address] [facility] [address] [place] [phone] Rasheed Davies MD [address] 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
--- OUTSIDE RECORDS SUMMARY | 2025-04-10 08:21 | XMS_ITS | Encounter Summary ---
Author Organization [facility] Address [address] [place] [address] Care Team Providers Care Pipe Line Gauger Name Role Phone Zohaib Pettit MD Primary Care Provider Encounter Details Date Type Department Care Team (Late st Contact Info) Description 11/07/2005 Outpatient Historical [facility] [address] [facility] [address] [place] [phone] Rasheed Davies MD [address] 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
[2025-04-10 08:47] LABS: Hemoglobin A1C 5.8 % (<5.7)
[2025-04-10 09:06] LABS: Alanine Aminotransferase 22 U/L (6-50); Albumin Level 4.3 g/dL (3.5-5.1); Alkaline Phosphatase 43 U/L (38-126); Anion Gap 9 mmol/L (4-12); Aspartate Amino Transferase 36 U/L (17-59); Bilirubin,Total 0.6 mg/dL (0.2-1.3); Blood Urea Nitrogen 25 mg/dL (9-20); Calcium 9.5 mg/dL (8.4-10.2); Carbon Dioxide 27 mmol/L (22-30); Chloride 107 mmol/L (98-107); Cholesterol 199 mg/dL (0-200); Estimated Glomerular Filt Rate > 60; Glucose 116 mg/dL (65-110); HDL Direct 44 mg/dL; Osmolality Calculated 301 mOsm/kg (285-295); Potassium 4.4 mmol/L (3.4-5.0); Sodium 143 mmol/L (137-145); Total Protein 6.8 g/dL (6.3-8.2); Triglycerides 95 mg/dL (<150)
[2025-04-10 09:35] LABS: Thyroid Stimulating Hormone 6.900 uIU/mL (0.465-4.680)
== END 2025-04-10 08:16 | disposition home or self-care (01) ==
LOC: CHSLAB 08:17
PROVIDERS: PCP Internal Medicine; Visit Provider Internal Medicine
DX: E11.9 Type 2 diabetes mellitus without complications (principal); E03.9 Hypothyroidism, unspecified
CPT/HCPCS: 36415; 80053; 80061; 83036; 84443